=== PATIENT | male | born 1945 | race Caucasian/White ===

== ENCOUNTER 2024-08-13 10:22 | Inpatient (IN) ==
--- NOTE | 2024-08-13 10:37 | Emergency Department Note ---
Impression & Plan Hydronephrosis with urinary obstruction due to renal calculus, Flank Pain, SAMI (acute kidney injury), Acute pyelonephritis ED Provider Note NAME: PAPA CARTWRIGHT AGE: 78 SEX: M : 1945 ARRIVES VIA: Ambulance INFORMANT: Patient, EMS ED PROVIDER(S): Jack Martins DO CHIEF COMPLAINT: Flank pain HPI: The patient is a 78-year-old male who has a history of polio who presented to the emergency department with right-sided flank pain. He thinks the symptoms began several weeks ago. He started to think it may be related to a urine infection. He called his family doctor. He was unable to be seen but he had an antibiotic called in. This did not significantly improve his symptoms. He presented to the Emergency Department today because of ongoing symptoms. He denies having any nausea or vomiting. He denies having any chest pain. He does have an ostomy that he has noticed continued output. He does complain of lower extremity swelling which is not new for him. He does have a history of kidney stone as well. ROS: See above HPI for pertinent positives & negatives. A total of 10 systems reviewed and were otherwise negative. PAST MEDICAL HISTORY: See Below PAST SURGICAL HISTORY: See Below FAMILY HISTORY: See Below SOCIAL HISTORY: See Below HOME MEDICATIONS: See Below ALLERGIES: See Below VITALS: See Below PHYSICAL EXAMINATION: GENERAL: Patient is awake alert in no acute distress patient is resting comfortably and showing no signs of anxiety EYES: The conjunctivae are clear. The pupils are round and reactive. EARS, NOSE, MOUTH AND THROAT: The nose is without any evidence of any deformity. Mucous membranes are moist. Tongue is midline. NECK: The neck is nontender and supple. RESPIRATORY: Normal respiratory effort is noted there is no evidence of wheezing rhonchi or rales CARDIOVASCULAR: Regular rate and rhythm noted there no murmurs rubs or gallops normal S1 normal S2. GASTROINTESTINAL: The abdomen was distended. There is no tenderness guarding or rigidity. Ostomy was noted in the left lower quadrant. BACK: No CVA tenderness was noted to percussion. MUSCULOSKELETAL/EXTREMITIES: There is no evidence of gross deformity full range of motion is noted in the hips and shoulders. SKIN: There is no obvious evidence of any rash. Pedal edema was noted bilaterally. Skin was warm and dry. NEUROLOGIC: Patient is awake alert and oriented x3 MEDICAL DECISION MAKING: The patient is a 78-year-old male who presented to the emergency department for an evaluation of right flank pain. The patient was initially thought to have a urinary tract infection. He was treated with Cipro by his outpatient provider. The patient presents today with ongoing symptoms. The patient's history and physical exam was consistent with the possibility of urinary tract infection but also a kidney stone. For this reason further laboratory and radiographic studies were obtained. The patient was found have an elevated white blood cell count. I am concerned this could represent an underlying infection with the obstructing kidney stone. He was treated with IV antibiotics and IV fluids. I discussed the patient's laboratory and radiographic studies with him and his family. I discussed this case with the on-call urology group as well as the on- call [facility] hospitalist group. They have agreed to evaluate the patient in the emergency department for further management and disposition. Triage Nursing notes reviewed. Prior medical records reviewed Vital Signs: reviewed and remarkable for no significant abnormalities Differential diagnosis: Renal colic, UTI, appendicitis, diverticulitis, mesenteric ischemia, aortic pathology, infections, inflammatory bowel disease, PUD, biliary pathology, as well as other pathologies. ER treatment provided: See below Diagnostics interpreted by me: ECG: EKG was obtained in the emergency department. My interpretation is normal sinus rhythm at 68 bpm. There is no ectopy. There is no acute ST segment abnormalities noted. This was compared to a tracing from March 27, 2013. No changes were noted. Cardiac Monitoring: An order was placed for continuous cardiac monitoring. The monitor shows a rate of 64 bpm with sinus rhythm. Laboratory studies: As stated above and show below. Imaging studies: See below. Radiographic imaging was reviewed by myself Consultation(s): I discussed this case with Dr. Cm who is on-call for the urology group. I discussed this case with the on-call [facility] hospitalist group. They have agreed to evaluate the patient Past Med/Surg History Problem List (Updated 08/13/24 @ 14:50 by Jack Martins DO) Acute pyelonephritis (Acute) SAMI (acute kidney injury) (Acute) Flank Pain (Acute) Hydronephrosis with urinary obstruction due to renal calculus (Acute) Late effects of poliomyelitis (Chronic Unknown) Medical History Concern about drug reaction without diagnosis Patient concerned with anesthesia regarding upcoming cataracts surgery specifically in regards to hx REGLA. States he spoke with Dr. Hadley regarding possibility of no/little anesthesia perioperatively depending patient patient's confort level. Will discuss further DOS. On home oxygen therapy "a little less than 3L continously" Cataract Wheelchair dependence need for mechanical lift-always Polio hx-affected pt neurologically, sometimes affects his breathing while sleeping Scoliosis "has trouble laying flat due to this" Sleep apnea BIPAP HTN (hypertension) Colostomy in place Surgical History Hx of left cataract extraction History of surgery on lower extremity as a child Hx of foot surgery multiple as child Hx of spinal fusion as a child Status post colostomy History of intestinal surgery due to constricted intestine Hx of colonoscopy Social History Smoking Status: Former smoker Second Hand Exposure: Yes (hx as child); Do You Dip or Chew Tobacco: No; Hx Alcohol Use: No Hx Substance Use: Yes Last Used Substance Other:: remote hx Preferred Language: German Communication Ability: Effective Report Writer Required: No Beliefs That Will Affect Care: None Current Living Situation: Spouse Feels Safe at Home: Yes Assistive Devices: BiPap, Mechanical Lift and Oxygen - Continuous Allergies Allergies Allergy/AdvReac Type Severity Reaction Status Date / Time No Known Allergies Allergy Verified 08/13/24 13:08 Home Meds Home Medications Medication Instructions Recorded Confirmed atenolol 25 mg tablet 25 mg PO HS 07/05/19 08/13/24 lisinopril 20 mg tablet 20 mg PO HS 07/05/19 08/13/24 cholecalciferol (vitamin D3) 25 25 mcg PO DAILY 08/13/24 08/13/24 mcg (1,000 unit) tablet (Vitamin D3) Results & Data (ED) Vital Signs Vital Signs - 24 hr 08/13/24 10:35 08/13/24 10:38 08/13/24 10:39 Temperature 37 C Temperature Source Oral Pulse Rate 73 69 Pulse Rate from SpO2 Sensor 68 Respiratory Rate 15 17 Respiratory Effort / Characteristics Non-Labored Spontaneous Respiratory Depth Normal Blood Pressure 159/88 H Blood Pressure [Left Arm] Blood Pressure Mean 111 Blood Pressure Mean [Left Arm] Pulse Oximetry 98 99 Oxygen Delivery Method Nasal Cannula Nasal Cannula Oxygen Flow Rate 3 Sepsis Recent Fever Within 48 Hours No Sepsis New/Unexplained Change in Mental Status N/A Sepsis Action Taken by Nursing No Action Required 08/13/24 10:51 08/13/24 11:03 08/13/24 11:15 Temperature Temperature Source Pulse Rate 69 73 74 Pulse Rate from SpO2 Sensor 75 75 Respiratory Rate 24 22 19 Respiratory Effort / Characteristics Respiratory Depth Blood Pressure Blood Pressure [Left Arm] Blood Pressure Mean Blood Pressure Mean [Left Arm] Pulse Oximetry 98 99 Oxygen Delivery Method Oxygen Flow Rate Sepsis Recent Fever Within 48 Hours Sepsis New/Unexplained Change in Mental Status Sepsis Action Taken by Nursing 08/13/24 11:21 08/13/24 11:39 08/13/24 11:54 Temperature Temperature Source Pulse Rate 74 96 H 96 H Pulse Rate from SpO2 Sensor 75 95 H 97 H Respiratory Rate 22 23 Respiratory Effort / Characteristics Respiratory Depth Blood Pressure Blood Pressure [Left Arm] Blood Pressure Mean Blood Pressure Mean [Left Arm] Pulse Oximetry 99 92 90 Oxygen Delivery Method Oxygen Flow Rate Sepsis Recent Fever Within 48 Hours Sepsis New/Unexplained Change in Mental Status Sepsis Action Taken by Nursing 08/13/24 12:06 08/13/24 12:09 08/13/24 12:12 Temperature Temperature Source Pulse Rate 99 H 97 H Pulse Rate from SpO2 Sensor 99 H Respiratory Rate Respiratory Effort / Characteristics Respiratory Depth Blood Pressure Blood Pressure [Left Arm] 164/92 H Blood Pressure Mean Blood Pressure Mean [Left Arm] 116 Pulse Oximetry 95 Oxygen Delivery Method Oxygen Flow Rate Sepsis Recent Fever Within 48 Hours Sepsis New/Unexplained Change in Mental Status Sepsis Action Taken by Nursing 08/13/24 12:12 08/13/24 12:21 08/13/24 12:45 Temperature Temperature Source Pulse Rate 97 H 98 H 86 Pulse Rate from SpO2 Sensor 98 H 99 H 87 Respiratory Rate 17 Respiratory Effort / Characteristics Respiratory Depth Blood Pressure Blood Pressure [Left Arm] Blood Pressure Mean Blood Pressure Mean [Left Arm] Pulse Oximetry 97 97 98 Oxygen Delivery Method Oxygen Flow Rate Sepsis Recent Fever Within 48 Hours Sepsis New/Unexplained Change in Mental Status Sepsis Action Taken by Nursing 08/13/24 12:48 08/13/24 13:00 08/13/24 13:06 Temperature Temperature Source Pulse Rate 94 H 75 Pulse Rate from SpO2 Sensor 94 H 76 Respiratory Rate 17 21 Respiratory Effort / Characteristics Respiratory Depth Blood Pressure 132/86 Blood Pressure [Left Arm] Blood Pressure Mean 102 Blood Pressure Mean [Left Arm] Pulse Oximetry 97 99 Oxygen Delivery Method Oxygen Flow Rate Sepsis Recent Fever Within 48 Hours Sepsis New/Unexplained Change in Mental Status Sepsis Action Taken by Nursing 08/13/24 13:12 08/13/24 13:42 08/13/24 14:00 Temperature Temperature Source Pulse Rate 71 66 Pulse Rate from SpO2 Sensor 70 64 Respiratory Rate 21 Respiratory Effort / Characteristics Respiratory Depth Blood Pressure Blood Pressure [Left Arm] Blood Pressure Mean Blood Pressure Mean [Left Arm] Pulse Oximetry 98 93 Oxygen Delivery Method Room Air Oxygen Flow Rate Sepsis Recent Fever Within 48 Hours Sepsis New/Unexplained Change in Mental Status Sepsis Action Taken by Nursing 08/13/24 14:00 08/13/24 14:06 Temperature Temperature Source Pulse Rate 64 Pulse Rate from SpO2 Sensor 64 Respiratory Rate 16 Respiratory Effort / Characteristics Respiratory Depth Blood Pressure 131/83 Blood Pressure [Left Arm] Blood Pressure Mean 97 Blood Pressure Mean [Left Arm] Pulse Oximetry 100 Oxygen Delivery Method Oxygen Flow Rate Sepsis Recent Fever Within 48 Hours Sepsis New/Unexplained Change in Mental Status Sepsis Action Taken by [facility] Medications Current Medication List: was personally reviewed by me Laboratory Data Attestation: I reviewed the patient's lab results. 08/13/24 10:45 08/13/24 10:45 Lab Results 08/13/24 08/13/24 08/13/24 Range/Units 10:45 10:50 11:57 WBC 14.87 H (4.8-10.8) K/ul RBC 4.11 L (4.70-6.10) M/uL Hgb 11.9 L (14.0-18.0) g/dl POC Hgb 13.3 L (14.0-18.0) g/dl Hct 39.4 L (42.0-52.0) % POC Hct 39 L (42-52) % MCV 95.9 (80.0-100.0) fL MCH 29.0 (25.0-34.0) pg MCHC 30.2 L (32.0-36.0) g/dL RDW Std Deviation 49.4 H (36.4-46.3) fL RDW Coeff of Marisa 13.9 (11.5-14.5) % Plt Count 278 (130-400) K/uL MPV 9.5 (9.4-12.4) fL Immature Gran % (Auto) 1.3 % Neut % (Auto) 86.3 % Lymph % (Auto) 5.9 % Jack % (Auto) 5.7 % Eos % (Auto) 0.5 % Baso % (Auto) 0.3 % Neut # (Auto) 12.82 H (1.40-6.50) K/uL Lymph # (Auto) 0.88 L (1.20-3.40) K/uL Jack # (Auto) 0.85 H (0.11-0.59) K/uL Eos # (Auto) 0.08 (0.00-0.50) K/uL Baso # (Auto) 0.04 (0.00-0.20) K/uL Immature Gran # (Auto) 0.20 (0.01-0.20) K/uL POC Sodium 142 (135-144) mmol/L Sodium 145 (136-145) mmol/L POC Potassium 4.0 (3.3-5.0) mmol/L Potassium 4.1 (3.5-5.1) mmol/L POC Chloride 97 L (101-112) mmol/L Chloride 100 (98-107) mmol/L Carbon Dioxide 42 H* (21-32) mmol/L POC Total CO2 38 H (24-31) mmol/L Anion Gap 3 (3-11) POC Anion Gap 12.0 L (16-25) mmol/L POC BUN 24 H (7-18) mg/dl BUN 25 H (6-23) mg/dl Creatinine 0.57 L (0.6-1.4) mg/dl POC Creatinine 0.7 (0.6-1.3) mg/dl Est Cr Clr Drug Dosing 98.7 ml/min eGFR 100.98 BUN/Creatinine Ratio 43.9 H (10-20) Glucose 116 H (70-99(Fasting)) mg/dl POC Glucose (other) 117 H (70-99) mg/dl Calcium 9.6 (8.6-10.3) mg/dl POC Ioniz Calcium Sandra 1.18 (1.12-1.32) mmol/l Total Bilirubin 0.5 (0.2-1.0) mg/dl AST 14 (13-39) U/L ALT 10 (7-52) U/L Alkaline Phosphatase 51 (34-104) U/L Troponin I High Sens 7.1 (0-20) pg/ml Total Protein 6.5 (6.0-8.3) gm/dl Albumin 3.5 (3.4-5.0) gm/dl Globulin 3.0 (2.5-4.0) gm/dl Albumin/Globulin Ratio 1.2 (0.9-2) Lipase 18 (11-82) U/L Urine Color [place] Urine Appearance Clear (Clear) Urine pH 7.5 (4.5-7.5) Ur Specific [place] 1.030 (1.000-1.030) Urine Protein 1+ H (Negative) Urine Glucose (UA) Negative (Negative) Urine Ketones Negative (Negative) Urine Blood 3+ H (Negative) Urine Nitrite Negative (Negative) Urine Bilirubin Negative (Negative) Urine Urobilinogen Negative (Negative) Ur Leukocyte Esterase Trace H (Negative) Urine WBC (Auto) 11-20 H (0-5) /hpf Urine RBC (Auto) >20 H (0-2) /hpf U Hyaline Cast (Auto) 0-2 (0-2) /lpf U Epithel Cells (Auto) 0-2 (0-2) /hpf Urine Bacteria (Auto) None Seen (None Seen) Administered Medications Discontinued Medications Sodium Chloride (Nss) 500 mls @ 999 mls/hr IV .Q31M ONE Stop: 08/13/24 10:59 Last Infusion: 08/13/24 11:29 Dose: Infused Documented By: Admin: 08/13/24 10:39 Dose: 999 mls/hr Documented By: HECTOR Piperacillin Sod/Tazobactam Sod (Zosyn) 4.5 gm in 100 mls @ 200 mls/hr IV NOW ONE; Protocol Stop: 08/13/24 12:12 Last Infusion: 08/13/24 12:59 Dose: Infused Documented By: Admin: 08/13/24 11:52 Dose: 200 mls/hr Documented By: HECTOR Ioversol (Optiray 320 100ml) 94 ml IV ONCE ONE Stop: 08/13/24 11:32 Last Admin: 08/13/24 11:31 Dose: 94 ml Documented By: DINO Imaging Data Attestation: I personally reviewed and interpreted this imaging study as follows: My Impression: CT of the abdomen and pelvis was obtained in the emergency department. My interpretation is no free air, significant hydronephrosis was noted on the right with a proximal right ureteral calculus. There is also stranding about the right kidney. Final report below. Radiologist's Impression: Abdomen/Pelvis CT 08/13/24 10:[address] WITH IV CONTRAST CT DOSE: 1254.1 mGy.cm HISTORY: Acute right-sided flank pain . History of left-sided colostomy with parastomal hernia right flank pain TECHNIQUE: Multiaxial CT images of the abdomen and pelvis were performed following the IV administration of 94 cc of Optiray, A dose lowering technique was utilized adhering to the principles of ALARA. COMPARISON STUDY: 07/05/2019 FINDINGS: Limited exam secondary to patient positioning and chronic musculoskeletal deformities. Cardiomegaly with coronary artery calcifications. Trace pleural effusions with dependent bibasilar opacities favoring atelectasis. No pneumoperitoneum identified. Unremarkable spleen, pancreas and right adrenal gland. There are 2 left adrenal gland lesions which appear stable from prior and appear to represent adenomata. Stone filled gallbladder with gallbladder wall thickening and mild pericholecystic stranding, similar to prior. Gallstones extend into the gallbladder neck. No biliary ductal dilation or choledocholithiasis identified. Patent portal vein. Lesions of the kidneys includes cysts and subcentimeter hypodensities which are too small to characterize. 4 mm nonobstructing calculus of the inferior pole left kidney. Moderate right-sided hydroureteronephrosis with delayed nephrogram. There are a few nonobstructing calculi in the right kidney measuring up to 5 mm. Moderate perinephric and periureteral inflammatory stranding/trace fluid. There is a 9 x 7 x 10 mm proximal right ureteral calculus on image 142 with an adjacent more distal 5 mm ureteral calculus on image 148. There is an apparent 1.5 cm enhancing nodular focus abutting the inferior pole right kidney image 125 series 3. Moderate urothelial thickening of the right renal collecting system and ureter. Partially decompressed bladder with wall thickening and small diverticulum. Prostatomegaly. Atherosclerosis of the aorta without aneurysm. No bowel obstruction or bowel wall thickening. Colonic diverticulosis. Fat and bowel-containing abdominal wall hernias are redemonstrated. Thinning of the anterior abdominal wall musculature. Diffuse most likely suggestive of nonweightbearing status. No acute fracture identified. IMPRESSION: 1. Moderate right-sided hydroureteronephrosis with delayed nephrogram secondary to two proximal to mid right ureteral calculi measuring up to 10 mm. 2. Associated urothelial thickening of the right renal collecting system and ureter is likely reactive. Correlate with urinalysis to exclude superimposed infection. 3. Nonobstructing bilateral nephrolithiasis. 4. There is an apparent indeterminate 1.5 cm lesion of the inferior pole right kidney. Correlation with follow-up renal ultrasound recommended. 5. Additional findings as above. ACT 112: Negative or not required by law. The above report was generated using voice recognition software. It may contain grammatical, syntax or spelling errors. Electronically signed by: Jossue Christensen M.D. 08/13/2024 12:10 PM Chest X-Ray 08/13/24 10:29 XR chest 1V portable CLINICAL HISTORY: Back pain. COMPARISON STUDY: Chest radiograph March 29, 2023. FINDINGS: There is severe thoracic spine scoliosis and chronic rib deformities. This results in suboptimal evaluation of the chest. There is no pneumothorax or definite pleural effusion. Enlargement of the cardiac silhouette is unchanged. Mediastinal contours are stable. Hazy bilateral peripheral and bibasilar opacities are present. These are similar to prior exam. IMPRESSION: 1. Suboptimal evaluation of the chest due to severe scoliosis and rib deformities. 2. Hazy bilateral perihilar and bibasilar which favor artifact or atelectasis. An infectious process is within the differential. ACT 112: Negative or not required by law. Electronically signed by: Tucker Aguilar M.D. 08/13/2024 11:02 AM Discharge Plan Visit Data Chief Complaint: Flank Pain Stated Complaint: FLANK PAIN ED Provider: Jack Martins Discharge Problem: Hydronephrosis with urinary obstruction due to renal calculus, Flank Pain, SAMI (acute kidney injury), Acute pyelonephritis Patient Disposition: Being Evaluated by Hospitalist Forms Stand Alone Forms: My [facility] [place] Fengxiafei Prescriptions Prescriptions: No Action lisinopril 20 mg tablet 20 mg PO HS atenolol 25 mg tablet 25 mg PO HS cholecalciferol (vitamin D3) [Vitamin D3] 25 mcg (1,000 unit) Tablet 25 mcg PO DAILY Referrals Referrals: PCP,NO [Physician] -
[2024-08-13] MEDS: SODIUM CHLORIDE 0.9% 500 ML IV ONE (10:39)
[2024-08-13 11:02] LABS: iSTAT Creatinine 0.7 mg/dl (0.6-1.3); iSTAT Hemoglobin 13.3 g/dl (14.0-18.0); iSTAT Ionized Calcium 1.18 mmol/l (1.12-1.32)
[2024-08-13 11:03] LABS: Basophils # (auto) 0.04 K/uL (0.00-0.20); Basophils % (auto) 0.3 %; Eosinophils # (auto) 0.08 K/uL (0.00-0.50); Eosinophils % (auto) 0.5 %; Hematocrit (blood only) 39.4 % (42.0-52.0); Hemoglobin 11.9 g/dl (14.0-18.0); Immature Granulocytes % (auto) 1.3 %; Lymphocytes # (auto) 0.88 K/uL (1.20-3.40); Lymphocytes % (auto) 5.9 %; Mean Corpuscular Hgb Conc 30.2 g/dL (32.0-36.0); Mean Corpuscular Volume 95.9 fL (80.0-100.0); Mean Platelet Volume 9.5 fL (9.4-12.4); Monocytes # (auto) 0.85 K/uL (0.11-0.59); Monocytes % (auto) 5.7 %; Neutrophils # (auto) 12.82 K/uL (1.40-6.50); Neutrophils % (auto) 86.3 %; Platelet Count 278 K/uL (130-400); RDW Coefficient of Variation 13.9 % (11.5-14.5); RDW Standard Deviation 49.4 fL (36.4-46.3); Red Blood Count 4.11 M/uL (4.70-6.10); White Blood Count 14.87 K/ul (4.8-10.8)
--- NOTE | 2024-08-13 11:03 | XRay Report ---
XR chest 1V portable CLINICAL HISTORY: Back pain. COMPARISON STUDY: Chest radiograph March 29, 2023. FINDINGS: There is severe thoracic spine scoliosis and chronic rib deformities. This results in subop timal evaluation of the chest. There is no pneumothorax or definite pleural effusion. Enlargement of the cardiac silhouette is unchanged. Mediastinal contours are stable. Hazy bilateral peripheral and b ibasilar opacities are present. These are similar to prior exam. IMPRESSION: 1. Suboptimal evaluation of the chest due to severe scoliosis and rib deformities. 2. Hazy bilateral perihilar and bibasilar which favor artifact or atelectasis. An infectious process is within the differential. ACT 112: Negative or not required by law. Electronically signed by: Tucker Agiular M.D. 08/13/2024 11:02 AM
[2024-08-13] MEDS: OPTIRAY 320 100ml IV ONE (11:31)
[2024-08-13 11:32] LABS: Albumin Globulin Ratio 1.2 (0.9-2); Albumin Level 3.5 gm/dl (3.4-5.0); BUN Creatinine Ratio 43.9 (10-20); Bilirubin,Total 0.5 mg/dl (0.2-1.0); Calcium 9.6 mg/dl (8.6-10.3); Creatinine Clr Calc Pharmacy 98.7 ml/min; Potassium 4.1 mmol/L (3.5-5.1); Total Protein 6.5 gm/dl (6.0-8.3); Troponin I High Sensitivity 7.1 pg/ml (0-20)
[2024-08-13] MEDS: PIPERACILLIN/TAZOBACTAM 4.5 GM/100 ML BAG IV ONE (11:52)
--- NOTE | 2024-08-13 12:11 | CT Scan Report ---
ABDOMEN AND PELVIS CT WITH IV CONTRAST CT DOSE: 1254.1 mGy.cm HISTORY: Acute right-sided flank pain . History of left-sided colostomy with parastomal hernia right flank pain TECHNIQUE: Multiaxial CT images of the abdomen and pelvis were performed following the IV administrat ion of 94 cc of Optiray, A dose lowering technique was utilized adhering to the principles of ALARA. COMPARISON STUDY: 07/05/2019 FINDINGS: Limited exam secondary to patient positioning and chronic musculoskeletal deformities. Card iomegaly with coronary artery calcifications. Trace pleural effusions with dependent bibasilar opacit ies favoring atelectasis. No pneumoperitoneum identified. Unremarkable spleen, pancreas and right adrenal gland. There are 2 left adrenal gland lesions which a ppear stable from prior and appear to represent adenomata. Stone filled gallbladder with gallbladder wall thickening and mild pericholecystic stranding, similar to prior. Gallstones extend into the gall bladder neck. No biliary ductal dilation or choledocholithiasis identified. Patent portal vein. Lesions of the kidneys includes cysts and subcentimeter hypodensities which are too small to characte rize. 4 mm nonobstructing calculus of the inferior pole left kidney. Moderate right-sided hydroureter onephrosis with delayed nephrogram. There are a few nonobstructing calculi in the right kidney measur ing up to 5 mm. Moderate perinephric and periureteral inflammatory stranding/trace fluid. There is a 9 x 7 x 10 mm proximal right ureteral calculus on image 142 with an adjacent more distal 5 mm uretera l calculus on image 148. There is an apparent 1.5 cm enhancing nodular focus abutting the inferior po le right kidney image 125 series 3. Moderate urothelial thickening of the right renal collecting syst em and ureter. Partially decompressed bladder with wall thickening and small diverticulum. Prostatome duc. Atherosclerosis of the aorta without aneurysm. No bowel obstruction or bowel wall thickening. Colonic diverticulosis. Fat and bowel-containing abdom inal wall hernias are redemonstrated. Thinning of the anterior abdominal wall musculature. Diffuse mo st likely suggestive of nonweightbearing status. No acute fracture identified. IMPRESSION: 1. Moderate right-sided hydroureteronephrosis with delayed nephrogram secondary to two proximal to mi d right ureteral calculi measuring up to 10 mm. 2. Associated urothelial thickening of the right renal collecting system and ureter is likely reactiv e. Correlate with urinalysis to exclude superimposed infection. 3. Nonobstructing bilateral nephrolithiasis. 4. There is an apparent indeterminate 1.5 cm lesion of the inferior pole right kidney. Correlation follow-up renal ultrasound recommended. 5. Additional findings as above. ACT 112: Negative or not required by law. The above report was generated using voice recognition software. It may contain grammatical, syntax o r spelling errors. Electronically signed by: Jossue Christensen M.D. 08/13/2024 12:10 PM
[2024-08-13 13:00] LABS: Appearance Urine Clear (Clear); Bacteria Urine Automated None Seen (None Seen); Bilirubin Urine Negative (Negative); Blood Urine 3+ (Negative); Cast Urine Automated 0-2 /lpf (0-2); Color Urine Orange; Epithelial Cell Urine Auto 0-2 /hpf (0-2); Glucose Urine UA Negative (Negative); Ketones Urine Negative (Negative); Leukocyte Esterase Urine Trace (Negative); Nitrite Urine Negative (Negative); Protein Urine 1+ (Negative); RBC Urine Automated >20 /hpf (0-2); Urobilinogen Urine Negative (Negative); pH Urine 7.5 (4.5-7.5)
--- NOTE | 2024-08-13 15:17 | Communication Note ---
Date of Service: August 13, 2024 78-year-old male with PMH of paraplegia, postpolio syndrome, HTN, chronic hypoxemic respiratory failure, central sleep apnea on BPAP, restrictive lung d isease, oxygen dependent, colostomy status, wheelchair-bound presented to the ED with complaint of right flank pain for about 3 weeks time, he completed ciprofloxacin 10-day course with no improvement, his last dose was last Sunday [about a week ago [employer] DIES]. He felt warm and states that maybe he had low-grade fever at home. He denies sore throat/cough/chest pain. Denies smoking. He is wheelchair-bound. Admitting labs and imagings reviewed: WBC elevated at 14.8 7K, urinalysis not conclusive. Admitting CT AP: Moderate right-sided hydroureteronephrosis, 2 proximal to mid right ureteral calculi measuring up to 10 mm. Associated urothelial thickening of the right renal collecting system. Indeterminate 1.5 cm lesion of the inferior pole right kidney. CXR with likely atelectasis finding in the setting of no respiratory complaints from the patient. Right hydroureteronephrosis, right ureteral calculi In the setting of possible UTI: UA inconclusive, await urine culture. WBC elevated. Continue with Zosyn, add probiotic. c/w ivf. Urology consult. Possible intervention today. Resume diet after the procedure. On exam: GENERAL: Alert and oriented x3. NAD, on BPAP. Appears weak/frail. HEENT: No pallor, no icterus. Pupils equal, round and reactive to light. Oral mucosa dry. NECK: No JVD, no neck masses. HEART: S1 and S2 heard. Regular rate and rhythm. No murmur, no gallop. RESPIRATORY SYSTEM: Normal AP diameter. No accessory muscle use. No wheezing, no crackles. ABDOMEN: Soft, bowel sounds present, nontender, no distention. CENTRAL NERVOUS SYSTEM: No facial droop. Speech is clear. Obeys simple commands. Moves extremities. EXTREMITIES: Paresis LE, no edema/no erythema. I have seen and examined the patient and have discussed the case with the provider above. I agree with the assessment and plan as stated. Time spent: 35 min.
[2024-08-13] MEDS: LACTATED RINGER'S 1,000 ML IV SCH (16:06)
--- NOTE | 2024-08-13 16:38 | History & Physical Report ---
Date of Service August 13, 2024 Assessment & Plan (1) Acute pyelonephritis: (2) SAMI (acute kidney injury): (3) Hydronephrosis with urinary obstruction due to renal calculus: (4) Wheelchair dependence: (5) Polio: (6) Scoliosis: (7) HTN (hypertension): (8) Colostomy in place: Plan Assessment and plan: Moderate R hydroureteronephrosis Right 10 mm ureteral calculi: Completed 10 days of treatment with p.o. ciprofloxacin, still with flank pain A/P CT showed obstructing calculi and right hydro Urology consulted, plan for cystoscopy with right retrograde pyelogram/stent placement on 08/13 Continue IV Zosyn Hx HTN: Continue atenolol, hold lisinopril for now Chronic hypoxic respiratory failure Central sleep apnea: On baseline 3 L O2 [id number] Continue BiPAP at at bedtime A total of 60 minutes was spent on chart review/reviewing diagnostic data/facilitating plan of care/discussion with consultants Full code DVT prophylaxis: SCDs, hold off on AC until after OR History of Present Illness Chief Complaint: Bilateral flank pain Primary Care Provider: Sin Benoit MD The patient is a 78-year-old male with a past medical history of postpolio syndrome, paraplegia, chronic hypoxic respiratory failureon 3 L chronically, central sleep apneaon BiPAP at bedtime, HTN, vitamin D deficiency who presents to the ED on 08/13/2024 with complaints of right flank pain and low-grade fever intermittently over the past few weeks. Patient reports he saw his PCP who recommended treatment with ciprofloxacin for possible UTI. The patient has medical history of kidney stones in the past. The patient completed the 10 days of ciprofloxacin with no improvement in symptoms. He denies any shortness of breath or chest pain. He denies any nausea/vomiting. On exam, he reports his pain is controlled. Garrison catheter was placed in the ER On arrival to the ED, labs remarkable for WBC 14, hemoglobin 11.9, chloride 97, bicarb 42, anion gap 12 Chest x-ray showed atelectasis A/P CT showed: 1. Moderate right-sided hydroureteronephrosis with delayed nephrogram secondary to two proximal to mid right ureteral calculi measuring up to 10 mm. 2. Associated urothelial thickening of the right renal collecting system and ureter is likely reactive. Correlate with urinalysis to exclude superimposed infection. 3. Nonobstructing bilateral nephrolithiasis. 4. There is an apparent indeterminate 1.5 cm lesion of the inferior pole right kidney. Correlation with follow-up renal ultrasound recommended. The patient will be admitted for further management of hydroureter/kidney stone Allergies Allergy/AdvReac Type Severity Reaction Status Date / Time No Known Allergies Allergy Verified 08/13/24 13:08 Home Medications Medication Instructions Recorded Confirmed Type atenolol 25 mg tablet 25 mg PO HS 07/05/19 08/13/24 History lisinopril 20 mg tablet 20 mg PO HS 07/05/19 08/13/24 History cholecalciferol (vitamin D3) 25 25 mcg PO DAILY 08/13/24 08/13/24 History mcg (1,000 unit) tablet (Vitamin D3) Past Med/Surg History Problem List (Updated 08/13/24 @ 14:50 by Jack Martins DO) Acute pyelonephritis (Acute) SAMI (acute kidney injury) (Acute) Flank Pain (Acute) Hydronephrosis with urinary obstruction due to renal calculus (Acute) Late effects of poliomyelitis (Chronic Unknown) Medical History Concern about drug reaction without diagnosis Patient concerned with anesthesia regarding upcoming cataracts surgery specifically in regards to hx REGLA. States he spoke with Dr. Hadley regarding possibility of no/little anesthesia perioperatively depending patient patient's confort level. Will discuss further DOS. On home oxygen therapy "a little less than 3L continously" Cataract Wheelchair dependence need for mechanical lift-always Polio hx-affected pt neurologically, sometimes affects his breathing while sleeping Scoliosis "has trouble laying flat due to this" Sleep apnea BIPAP HTN (hypertension) Colostomy in place Surgical History Hx of left cataract extraction History of surgery on lower extremity as a child Hx of foot surgery multiple as child Hx of spinal fusion as a child Status post colostomy History of intestinal surgery due to constricted intestine Hx of colonoscopy Social History Smoking Status: Former smoker Second Hand Exposure: Yes (hx as child); Do You Dip or Chew Tobacco: No; Hx Alcohol Use: No Hx Substance Use: Yes Last Used Substance Other:: remote hx Preferred Language: Bulgarian Communication Ability: Effective Taxicab Starter Required: No Beliefs That Will Affect Care: None Current Living Situation: Spouse Feels Safe at Home: Yes Assistive Devices: BiPap, Mechanical Lift and Oxygen - Continuous Review of Systems Review of Systems: All systems reviewed & are unremarkable except as noted in HPI & below Physical Exam Constitutional: WD/WN, vitals as above + not well developed (Paraplegia, scoliosis, deformities postpolio) Eyes: PERRL, conjunctivae normal, anicteric sclerae ENMT: external ear and nose normal, oropharynx normal Neck: trachea midline, no thyromegaly Respiratory: normal respiratory effort, lungs clear to auscultation (Oxygen dependent, BiPAP dependent at bedtime) Cardiovascular: RRR, no murmur, no edema Gastrointestinal (Abdomen): normal bowel sounds, soft, nontender, no hepatosplenomegaly Musculoskeletal: no cyanosis or clubbing, extremities motor strength 5/5 Skin: no rashes, warm and dry Neurologic: PERRL, EOMI, accommodation nl, no face palsy, no dysarthria Psychiatric: A+Ox3, euthymic affect Lymphatic: no cervical or axillary lymphadenopathy Results & Data Results & Data Vital Signs (Past 12 Hours) Vital Signs Temp Pulse Resp BP BP Pulse Ox O2 Del Method 08/13/24 16:11 66 08/13/24 15:00 58 L 20 98 08/13/24 15:00 145/85 H 08/13/24 15:00 145/85 H 08/13/24 15:00 145/85 H 08/13/24 15:00 145/85 H 08/13/24 14:57 63 20 08/13/24 14:33 61 14 99 08/13/24 14:21 64 100 08/13/24 14:12 61 16 100 08/13/24 14:06 64 16 100 08/13/24 14:00 131/83 08/13/24 14:00 Room Air 08/13/24 13:42 66 21 93 08/13/24 13:12 71 98 08/13/24 13:06 75 21 99 08/13/24 13:00 132/86 08/13/24 12:48 94 H 17 97 08/13/24 12:45 86 98 08/13/24 12:21 98 H 97 08/13/24 12:12 97 H 17 97 08/13/24 12:12 97 H 08/13/24 12:09 164/92 H 08/13/24 12:06 99 H 95 08/13/24 11:54 96 H 23 90 08/13/24 11:39 96 H 92 08/13/24 11:21 74 22 99 08/13/24 11:15 74 19 99 08/13/24 11:03 73 22 98 08/13/24 10:51 69 24 08/13/24 10:39 69 17 99 08/13/24 10:38 Nasal Cannula 08/13/24 10:35 37 C 73 15 159/88 H 98 Nasal Cannula O2 Flow Rate 08/13/24 16:11 08/13/24 15:00 08/13/24 15:00 08/13/24 15:00 08/13/24 15:00 08/13/24 15:00 08/13/24 14:57 08/13/24 14:33 08/13/24 14:21 08/13/24 14:12 08/13/24 14:06 08/13/24 14:00 08/13/24 14:00 08/13/24 13:42 08/13/24 13:12 08/13/24 13:06 08/13/24 13:00 08/13/24 12:48 08/13/24 12:45 08/13/24 12:21 08/13/24 12:12 08/13/24 12:12 08/13/24 12:09 08/13/24 12:06 08/13/24 11:54 08/13/24 11:39 08/13/24 11:21 08/13/24 11:15 08/13/24 11:03 08/13/24 10:51 08/13/24 10:39 08/13/24 10:38 08/13/24 10:35 3 Diagnostic Findings Laboratory Results WBC 14.87 K/ul (4.8-10.8) H 08/13/24 10:45 RBC 4.11 M/uL (4.70-6.10) L 08/13/24 10:45 Hgb 11.9 g/dl (14.0-18.0) L 08/13/24 10:45 POC Hgb 13.3 g/dl (14.0-18.0) L 08/13/24 10:50 Hct 39.4 % (42.0-52.0) L 08/13/24 10:45 POC Hct 39 % (42-52) L 08/13/24 10:50 MCV 95.9 fL (80.0-100.0) 08/13/24 10:45 MCH 29.0 pg (25.0-34.0) 08/13/24 10:45 MCHC 30.2 g/dL (32.0-36.0) L 08/13/24 10:45 RDW Std Deviation 49.4 fL (36.4-46.3) H 08/13/24 10:45 RDW Coeff of Marisa 13.9 % (11.5-14.5) 08/13/24 10:45 Plt Count 278 K/uL (130-400) 08/13/24 10:45 MPV 9.5 fL (9.4-12.4) 08/13/24 10:45 Immature Gran % (Auto) 1.3 % 08/13/24 10:45 Neut % (Auto) 86.3 % 08/13/24 10:45 Lymph % (Auto) 5.9 % 08/13/24 10:45 Sanders % (Auto) 5.7 % 08/13/24 10:45 Eos % (Auto) 0.5 % 08/13/24 10:45 Baso % (Auto) 0.3 % 08/13/24 10:45 Neut # (Auto) 12.82 K/uL (1.40-6.50) H 08/13/24 10:45 Lymph # (Auto) 0.88 K/uL (1.20-3.40) L 08/13/24 10:45 Sanders # (Auto) 0.85 K/uL (0.11-0.59) H 08/13/24 10:45 Eos # (Auto) 0.08 K/uL (0.00-0.50) 08/13/24 10:45 Baso # (Auto) 0.04 K/uL (0.00-0.20) 08/13/24 10:45 Immature Gran # (Auto) 0.20 K/uL (0.01-0.20) 08/13/24 10:45 POC Sodium 142 mmol/L (135-144) 08/13/24 10:50 Sodium 145 mmol/L (136-145) 08/13/24 10:45 POC Potassium 4.0 mmol/L (3.3-5.0) 08/13/24 10:50 Potassium 4.1 mmol/L (3.5-5.1) 08/13/24 10:45 POC Chloride 97 mmol/L (101-112) L 08/13/24 10:50 Chloride 100 mmol/L (98-107) 08/13/24 10:45 Carbon Dioxide 42 mmol/L (21-32) H* 08/13/24 10:45 POC Total CO2 38 mmol/L (24-31) H 08/13/24 10:50 Anion Gap 3 (3-11) 08/13/24 10:45 POC Anion Gap 12.0 mmol/L (16-25) L 08/13/24 10:50 POC BUN 24 mg/dl (7-18) H 08/13/24 10:50 BUN 25 mg/dl (6-23) H 08/13/24 10:45 Creatinine 0.57 mg/dl (0.6-1.4) L 08/13/24 10:45 POC Creatinine 0.7 mg/dl (0.6-1.3) 08/13/24 10:50 Est Cr Clr Drug Dosing 98.7 ml/min 08/13/24 10:45 eGFR 100.98 08/13/24 10:45 BUN/Creatinine Ratio 43.9 (10-20) H 08/13/24 10:45 Glucose 116 mg/dl (70-99(Fasting)) H 08/13/24 10:45 POC Glucose (other) 117 mg/dl (70-99) H 08/13/24 10:50 Calcium 9.6 mg/dl (8.6-10.3) 08/13/24 10:45 POC Ioniz Calcium Sandra 1.18 mmol/l (1.12-1.32) 08/13/24 10:50 Total Bilirubin 0.5 mg/dl (0.2-1.0) 08/13/24 10:45 AST 14 U/L (13-39) 08/13/24 10:45 ALT 10 U/L (7-52) 08/13/24 10:45 Alkaline Phosphatase 51 U/L (34-104) 08/13/24 10:45 Troponin I High Sens 7.1 pg/ml (0-20) 08/13/24 10:45 Total Protein 6.5 gm/dl (6.0-8.3) 08/13/24 10:45 Albumin 3.5 gm/dl (3.4-5.0) 08/13/24 10:45 Globulin 3.0 gm/dl (2.5-4.0) 08/13/24 10:45 Albumin/Globulin Ratio 1.2 (0.9-2) 08/13/24 10:45 Lipase 18 U/L (11-82) 08/13/24 10:45 Urine Color [place] 08/13/24 11:57 Urine Appearance Clear (Clear) 08/13/24 11:57 Urine pH 7.5 (4.5-7.5) 08/13/24 11:57 Ur Specific [place] 1.030 (1.000-1.030) 08/13/24 11:57 Urine Protein 1+ (Negative) H 08/13/24 11:57 Urine Glucose (UA) Negative (Negative) 08/13/24 11:57 Urine Ketones Negative (Negative) 08/13/24 11:57 Urine Blood 3+ (Negative) H 08/13/24 11:57 Urine Nitrite Negative (Negative) 08/13/24 11:57 Urine Bilirubin Negative (Negative) 08/13/24 11:57 Urine Urobilinogen Negative (Negative) 08/13/24 11:57 Ur Leukocyte Esterase Trace (Negative) H 08/13/24 11:57 Urine WBC (Auto) 11-20 /hpf (0-5) H 08/13/24 11:57 Urine RBC (Auto) >20 /hpf (0-2) H 08/13/24 11:57 U Hyaline Cast (Auto) 0-2 /lpf (0-2) 08/13/24 11:57 U Epithel Cells (Auto) 0-2 /hpf (0-2) 08/13/24 11:57 Urine Bacteria (Auto) None Seen (None Seen) 08/13/24 11:57 Impressions Abdomen/Pelvis CT 08/13/24 10:[address] WITH IV CONTRAST CT DOSE: 1254.1 mGy.cm HISTORY: Acute right-sided flank pain . History of left-sided colostomy with parastomal hernia right flank pain TECHNIQUE: Multiaxial CT images of the abdomen and pelvis were performed following the IV administration of 94 cc of Optiray, A dose lowering technique was utilized adhering to the principles of ALARA. COMPARISON STUDY: 07/05/2019 FINDINGS: Limited exam secondary to patient positioning and chronic musculoskeletal deformities. Cardiomegaly with coronary artery calcifications. Trace pleural effusions with dependent bibasilar opacities favoring atelectasis. No pneumoperitoneum identified. Unremarkable spleen, pancreas and right adrenal gland. There are 2 left adrenal gland lesions which appear stable from prior and appear to represent adenomata. Stone filled gallbladder with gallbladder wall thickening and mild pericholecystic stranding, similar to prior. Gallstones extend into the gallbladder neck. No biliary ductal dilation or choledocholithiasis identified. Patent portal vein. Lesions of the kidneys includes cysts and subcentimeter hypodensities which are too small to characterize. 4 mm nonobstructing calculus of the inferior pole left kidney. Moderate right-sided hydroureteronephrosis with delayed nephrogram. There are a few nonobstructing calculi in the right kidney measuring up to 5 mm. Moderate perinephric and periureteral inflammatory stranding/trace fluid. There is a 9 x 7 x 10 mm proximal right ureteral calculus on image 142 with an adj acent more distal 5 mm ureteral calculus on image 148. There is an apparent 1.5 cm enhancing nodular focus abutting the inferior pole right kidney image 125 series 3. Moderate urothelial thickening of the right renal collecting system and ureter. Partially decompressed bladder with wall thickening and small diverticulum. Prostatomegaly. Atherosclerosis of the aorta without aneurysm. No bowel obstruction or bowel wall thickening. Colonic diverticulosis. Fat and bowel-containing abdominal wall hernias are redemonstrated. Thinning of the anterior abdominal wall musculature. Diffuse most likely suggestive of nonweightbearing status. No acute fracture identified. IMPRESSION: 1. Moderate right-sided hydroureteronephrosis with delayed nephrogram secondary to two proximal to mid right ureteral calculi measuring up to 10 mm. 2. Associated urothelial thickening of the right renal collecting system and ureter is likely reactive. Correlate with urinalysis to exclude superimposed infection. 3. Nonobstructing bilateral nephrolithiasis. 4. There is an apparent indeterminate 1.5 cm lesion of the inferior pole right kidney. Correlation with follow-up renal ultrasound recommended. 5. Additional findings as above. ACT 112: Negative or not required by law. The above report was generated using voice recognition software. It may contain grammatical, syntax or spelling errors. Electronically signed by: Jossue Christensen M.D. 08/13/2024 12:10 PM Chest X-Ray 08/13/24 10:29 XR chest 1V portable CLINICAL HISTORY: Back pain. COMPARISON STUDY: Chest radiograph March 29, 2023. FINDINGS: There is severe thoracic spine scoliosis and chronic rib deformities. This results in suboptimal evaluation of the chest. There is no pneumothorax or definite pleural effusion. Enlargement of the cardiac silhouette is unchanged. Mediastinal contours are stable. Hazy bilateral peripheral and bibasilar opacities are present. These are similar to prior exam. IMPRESSION: 1. Suboptimal evaluation of the chest due to severe scoliosis and rib deformities. 2. Hazy bilateral perihilar and bibasilar which favor artifact or atelectasis. An infectious process is within the differential. ACT 112: Negative or not required by law. Electronically signed by: Tucker Aguilar M.D. 08/13/2024 11:02 AM Supervising Physician Co-Signing Physician Notes See communication note.
--- NOTE | 2024-08-13 16:58 | Anesthesiology Consultation ---
Date of Service August 13, 2024 Assessment & Plan Chart Review Chart Review: Acceptable Risk for Surgery and Patient NOT seen in Pre Admission Testing Consults Requested none History Surgery Operation Date: 08/13/24 11:40 Proposed Procedures p Cystoscopy, Right Retrograde Pyelogram, Right Stent Placement - Aramis Cm MD Height/Weight Height: 5 ft Weight: 85.7 kg Allergies Allergy/AdvReac Type Severity Reaction Status Date / Time No Known Allergies Allergy Verified 08/13/24 13:08 Medications Home Medications Medication Instructions Recorded Confirmed Last Taken atenolol 25 mg tablet 25 mg PO HS 07/05/19 08/13/24 08/12/24 lisinopril 20 mg tablet 20 mg PO HS 07/05/19 08/13/24 08/12/24 cholecalciferol (vitamin D3) 25 25 mcg PO DAILY 08/13/24 08/13/24 08/12/24 mcg (1,000 unit) tablet (Vitamin D3) Active Medications Generic Name Dose Route Start Last Admin Trade Name Freq PRN Reason Stop Dose Admin Lactated Ringer's 1,000 mls @ 80 mls/hr 08/13/24 16:00 08/13/24 16:06 Lr IV 08/14/24 15:59 80 mls/hr .[id number] DEJAN Administration Past Medical History Medical History Concern about drug reaction without diagnosis Patient concerned with anesthesia regarding upcoming cataracts surgery specifically in regards to hx REGLA. States he spoke with Dr. Hadley regarding possibility of no/little anesthesia perioperatively depending patient patient's confort level. Will discuss further DOS. On home oxygen therapy "a little less than 3L continously" Cataract Wheelchair dependence need for mechanical lift-always Polio hx-affected pt neurologically, sometimes affects his breathing while sleeping Scoliosis "has trouble laying flat due to this" Sleep apnea BIPAP HTN (hypertension) Colostomy in place Past Surgical History Surgical History Hx of left cataract extraction History of surgery on lower extremity as a child Hx of foot surgery multiple as child Hx of spinal fusion as a child Status post colostomy History of intestinal surgery due to constricted intestine Hx of colonoscopy Social History Smoking Status: Former smoker Do You Dip or Chew Tobacco: No Hx Alcohol Use: No Hx Substance Use: Yes substance use type: former substance user and marijuana Last Used Substance Other:: remote hx Physical Exam Vital Signs Last Vital Signs Temp 37 C 08/13/24 10:35 Pulse 66 08/13/24 16:11 Resp 20 08/13/24 15:00 BP 145/85 H 08/13/24 15:00 Pulse Ox 98 08/13/24 15:00 O2 Del Method Room Air 08/13/24 14:00 O2 Flow Rate 3 08/13/24 10:35 Testing Laboratory Results 08/13/24 10:45 08/13/24 10:45 Urine Color [place] 08/13/24 11:57 Urine Appearance Clear (Clear) 08/13/24 11:57 Urine pH 7.5 (4.5-7.5) 08/13/24 11:57 Ur Specific [place] 1.030 (1.000-1.030) 08/13/24 11:57 Urine Protein 1+ (Negative) H 08/13/24 11:57 Urine Glucose (UA) Negative (Negative) 08/13/24 11:57 Urine Ketones Negative (Negative) 08/13/24 11:57 Urine Nitrite Negative (Negative) 08/13/24 11:57 Ur Leukocyte Esterase Trace (Negative) H 08/13/24 11:57 Urine WBC (Auto) 11-20 /hpf (0-5) H 08/13/24 11:57 Urine RBC (Auto) >20 /hpf (0-2) H 08/13/24 11:57 U Hyaline Cast (Auto) 0-2 /lpf (0-2) 08/13/24 11:57 U Epithel Cells (Auto) 0-2 /hpf (0-2) 08/13/24 11:57 Urine Bacteria (Auto) None Seen (None Seen) 08/13/24 11:57 08/13/24 10:50 POC Glucose (other) 117 H
[2024-08-13] MEDS ORDERED: fentaNYL citrate PF 100 MCG/2 ML VIAL ONE (17:00)
[2024-08-13] MEDS ORDERED: LIDOCAINE 2% 2 ML VIAL/AMP(20MG/ML) INFIL ONE (17:00)
[2024-08-13] MEDS ORDERED: PROPOFOL IV EMULSION 10 MG/ML 20 ML VIAL IV ONE ×2 (17:00→18:16)
--- NOTE | 2024-08-13 17:03 | Urology Consultation ---
Date of Consultation August 13, 2024 Assessment & Plan (1) Hydronephrosis with urinary obstruction due to renal calculus: Plan 78-year-old male who presented to the hospital with right flank pain and a low- grade fever. CT scan was performed which showed a 2 separate large right proximal ureteral obstructing calculi. Labs showed a leukocytosis of 14.8, creatinine 0.57 and urinalysis that was nonconcerning for infection. Patient was admitted to the hospitalist team. He was given Zosyn. Given the large size of one of his stones, multiple obstructing stones and concern for infection given his leukocytosis and subjective fevers at home, recommend cystoscopy with right retrograde pyelogram right ureteral stent placement Risk and benefits discussed and consent obtained Patient marked. Antibiotics already administered. History of Present Illness History of Present Illness 78-year-old male who presented to the hospital with right flank pain and a low- grade fever. CT scan was performed which showed a 2 separate large right proximal ureteral obstructing calculi. Labs showed a leukocytosis of 14.8, creatinine 0.57 and urinalysis that was nonconcerning for infection. Patient was admitted to the hospitalist team. He was given Zosyn. Allergies Allergy/AdvReac Type Severity Reaction Status Date / Time No Known Allergies Allergy Verified 08/13/24 13:08 Home Medications Medication Instructions Recorded Confirmed Type atenolol 25 mg tablet 25 mg PO HS 07/05/19 08/13/24 History lisinopril 20 mg tablet 20 mg PO HS 07/05/19 08/13/24 History cholecalciferol (vitamin D3) 25 25 mcg PO DAILY 08/13/24 08/13/24 History mcg (1,000 unit) tablet (Vitamin D3) Patient History Medical History Concern about drug reaction without diagnosis Patient concerned with anesthesia regarding upcoming cataracts surgery specifically in regards to hx REGLA. States he spoke with Dr. Hadley regarding possibility of no/little anesthesia perioperatively depending patient patient's confort level. Will discuss further DOS. On home oxygen therapy "a little less than 3L continously" Cataract Wheelchair dependence need for mechanical lift-always Polio hx-affected pt neurologically, sometimes affects his breathing while sleeping Scoliosis "has trouble laying flat due to this" Sleep apnea BIPAP HTN (hypertension) Colostomy in place Surgical History Hx of left cataract extraction History of surgery on lower extremity as a child Hx of foot surgery multiple as child Hx of spinal fusion as a child Status post colostomy History of intestinal surgery due to constricted intestine Hx of colonoscopy Social History Smoking Status: Former smoker Second Hand Exposure: Yes (hx as child); Do You Dip or Chew Tobacco: No; Hx Alcohol Use: No Hx Substance Use: Yes Last Used Substance Other:: remote hx Preferred Language: Frisian Communication Ability: Effective Special Needs Bus Driver Required: No Beliefs That Will Affect Care: None Current Living Situation: Spouse Feels Safe at Home: Yes Assistive Devices: BiPap, Mechanical Lift and Oxygen - Continuous Physical Exam Physical Exam: General: Alert and oriented, no acute distress HEENT: Normocephalic, mucous membranes moist Pulmonary: Nonlabored respirations Abdomen: Nondistended Extremities: Moves all 4 spontaneously Neuro: No gross deficits Skin: Warm, dry, no rashes noted Results & Data Vital Signs (Past 12 Hours) Vital Signs Temp Pulse Pulse Resp BP BP Pulse Ox 08/13/24 16:11 66 08/13/24 16:00 61 20 155/83 H 99 08/13/24 15:00 58 L 20 98 08/13/24 15:00 145/85 H 08/13/24 15:00 145/85 H 08/13/24 15:00 145/85 H 08/13/24 15:00 145/85 H 08/13/24 14:57 63 20 08/13/24 14:33 61 14 99 08/13/24 14:21 64 100 08/13/24 14:12 61 16 100 08/13/24 14:06 64 16 100 08/13/24 14:00 131/83 08/13/24 14:00 08/13/24 13:42 66 21 93 08/13/24 13:12 71 98 08/13/24 13:06 75 21 99 08/13/24 13:00 132/86 08/13/24 12:48 94 H 17 97 08/13/24 12:45 86 98 08/13/24 12:21 98 H 97 08/13/24 12:12 97 H 17 97 08/13/24 12:12 97 H 08/13/24 12:09 164/92 H 08/13/24 12:06 99 H 95 08/13/24 11:54 96 H 23 90 08/13/24 11:39 96 H 92 08/13/24 11:21 74 22 99 08/13/24 11:15 74 19 99 08/13/24 11:03 73 22 98 08/13/24 10:51 69 24 08/13/24 10:39 69 17 99 08/13/24 10:38 08/13/24 10:35 37 C 73 15 159/88 H 98 O2 Del Method O2 Flow Rate 08/13/24 16:11 08/13/24 16:00 CPAP 08/13/24 15:00 08/13/24 15:00 08/13/24 15:00 08/13/24 15:00 08/13/24 15:00 08/13/24 14:57 08/13/24 14:33 08/13/24 14:21 08/13/24 14:12 08/13/24 14:06 08/13/24 14:00 08/13/24 14:00 Room Air 08/13/24 13:42 08/13/24 13:12 08/13/24 13:06 08/13/24 13:00 08/13/24 12:48 08/13/24 12:45 08/13/24 12:21 08/13/24 12:12 08/13/24 12:12 08/13/24 12:09 08/13/24 12:06 08/13/24 11:54 08/13/24 11:39 08/13/24 11:21 08/13/24 11:15 08/13/24 11:03 08/13/24 10:51 08/13/24 10:39 08/13/24 10:38 Nasal Cannula 08/13/24 10:35 Nasal Cannula 3 PG Care Time/CCT Total # of Minutes Spent Total Time Spent with Patient: Total time spent is greater than 50% in coordination of care (as documented) at patient's floor/unit and/or counseling patient: Coding Level of Care Code 47662 INT INP/OBS CARE 2/55MIN Diagnoses Hydronephrosis with urinary obstruction due to renal calculus N13.2
[2024-08-13] MEDS ORDERED: ATROPINE SULFATE 0.1 MG/ML 10ML SYR IV PRN (17:18)
[2024-08-13] MEDS ORDERED: ONDANSETRON INJ 2 MG/ML 2 ML VIAL IV PRN (17:18)
[2024-08-13] MEDS ORDERED: ePHEDrine sulfate 50 MG/ML AMP IV PRN (17:18)
[2024-08-13] MEDS ORDERED: fentaNYL citrate PF 100 MCG/2 ML VIAL IV PRN (17:18)
[2024-08-13] MEDS: DIATRIZOATE MEGLUMINE 30% 100ML VIAL INSTIL ONE (18:31)
--- NOTE | 2024-08-13 18:47 | Operative Report ---
PG Post Operative Report Pre & Post Diagnosis Operation Date: 08/13/24 11:40 Pre-Op Diagnosis: (1) Hydronephrosis with urinary obstruction due to renal calculus Post-Op Diagnosis: (1) Hydronephrosis with urinary obstruction due to renal calculus I identified the patient and participated in the time-out.: Yes Procedure Operation Date: 08/13/24 11:40 Actual Procedures p Cystoscopy, Right Stent Placement(Right) - Aramis Cm MD Surgeon Aramis Cm MD Audience Coordinator None Estimated Blood Loss 5 Findings See Below Incredibly challenging anatomy Patient had hematuria from catheter placement in ED which made visualization difficult. He had a very high, rigid bladder neck that made getting a rigid cystoscope into the bladder almost impossible. Visualization was poor. Ultimately able to get a right ureteral stent in appropriate position. Contrast was still in collecting system from CT scan so did not have to do retrograde. Specimens None Drains 1. 6 Italian by 26 cm right ureteral stent 2. 20 Italian catheter with 10 cc in balloon Anesthesia Type MAC Complications none Indications 78-year-old male with a history of polio who was admitted to the hospital with 2 right proximal obstructing ureteral calculi and subjective fevers at home. Risk and benefits discussed and proceeded to the OR for right stent placement. Description of Procedure After informed consent was obtained, the patient was transported to the operative suite. MAC anesthesia was induced. They were placed in dorsal lithotomy position and prepped and draped in sterile fashion. They received preoperative ceftriaxone. An appropriate surgical timeout was performed. He already had hematuria from catheter placement so when I attempted to advance a 21 Italian rigid cystoscope per urethra, visualization was poor due to blood in the urethra. He had an incredibly high, rigid bladder neck which made initially entry into the bladder unsuccessful with the cystoscope. I swapped out to a flexible cystoscope and was able to gain entry into the bladder however visualization was poor due to hematuria. I intermittently drained the bladder with a 20 Italian catheter and attempted to go back in with the flexible cystoscope but could not adequately see well enough to find the ureteral orifice. We very carefully repositioned the patient so he was slightly hanging off the table and I was able to deflect my hand more in a downward fashion. I was finally able to get a rigid cystoscope into the bladder but visualization was again poor. I cycled the bladder several times and then fortunately was able to find his right ureteral orifice. I advanced a sensor wire into the proximal ureter but met some redundancy. I advanced a 5 Italian open-ended catheter over this wire and removed the wire. I then was able to advance a zip wire into the kidney and confirmed this with fluoroscopy. Due to his CT scan, he still had retained contrast in the collecting system so I did not have to shoot a retrograde pyelogram. I advanced the 5 Italian open-ended over the zip wire into the renal pelvis. I removed the zip wire and exchanged for a sensor wire. 5 Italian open-ended catheter was removed. I then deployed a 6 Italian by 26 cm right ureteral stent with good proximal coil in the kidney confirmed fluoroscopically and a good distal coil confirmed in the bladder under direct visualization. Cystoscope was removed and bladder was left full. A 20 Italian Garrison catheter was inserted with return of light pink urine. Balloon was inflated with 10 cc of sterile water. This concluded the end of the case. All counts correct at the end of the case. I was present scrubbed and actively participated for the entirety of the procedure. I attest to the content of the Intraoperative Record and any orders documented therein. Any exceptions are noted below.
--- NOTE | 2024-08-13 19:17 | Anesthesiology Progress Note ---
Date of Service August 13, 2024 Anesthesia Post Procedure Vital Signs Vital Signs: Temp Pulse Pulse Pulse Resp BP BP 08/13/24 18:55 90 22 147/90 H 08/13/24 18:46 36.3 C L 100 H 22 151/90 H 08/13/24 17:12 36.8 C 71 20 190/95 H 08/13/24 16:11 66 08/13/24 16:00 61 20 155/83 H 08/13/24 15:00 58 L 20 08/13/24 15:00 145/85 H 08/13/24 15:00 145/85 H 08/13/24 15:00 145/85 H 08/13/24 15:00 145/85 H 08/13/24 14:57 63 20 08/13/24 14:33 61 14 08/13/24 14:21 64 08/13/24 14:12 61 16 08/13/24 14:06 64 16 08/13/24 14:00 131/83 08/13/24 14:00 08/13/24 13:42 66 21 08/13/24 13:12 71 08/13/24 13:06 75 21 08/13/24 13:00 132/86 08/13/24 12:48 94 H 17 08/13/24 12:45 86 08/13/24 12:21 98 H 08/13/24 12:12 97 H 17 08/13/24 12:12 97 H 08/13/24 12:09 164/92 H 08/13/24 12:06 99 H 08/13/24 11:54 96 H 23 08/13/24 11:39 96 H 08/13/24 11:21 74 22 08/13/24 11:15 74 19 08/13/24 11:03 73 22 08/13/24 10:51 69 24 08/13/24 10:39 69 17 08/13/24 10:38 08/13/24 10:35 37 C 73 15 159/88 H Pulse Ox O2 Del Method O2 Flow Rate 08/13/24 18:55 97 Nasal Cannula 3 08/13/24 18:46 96 Nasal Cannula 3 08/13/24 17:12 99 Nasal Cannula 3 08/13/24 16:11 08/13/24 16:00 99 CPAP 08/13/24 15:00 98 08/13/24 15:00 08/13/24 15:00 08/13/24 15:00 08/13/24 15:00 08/13/24 14:57 08/13/24 14:33 99 08/13/24 14:21 100 08/13/24 14:12 100 08/13/24 14:06 100 08/13/24 14:00 08/13/24 14:00 Room Air 08/13/24 13:42 93 08/13/24 13:12 98 08/13/24 13:06 99 08/13/24 13:00 08/13/24 12:48 97 08/13/24 12:45 98 08/13/24 12:21 97 08/13/24 12:12 97 08/13/24 12:12 08/13/24 12:09 08/13/24 12:06 95 08/13/24 11:54 90 08/13/24 11:39 92 08/13/24 11:21 99 08/13/24 11:15 99 08/13/24 11:03 98 08/13/24 10:51 08/13/24 10:39 99 08/13/24 10:38 Nasal Cannula 08/13/24 10:35 98 Nasal Cannula 3 Pain Intensity Right Flank: Pain Intensity: 0 Transfer of Care Handoff Completed per policy Notes Mental Status: alert / awake / arousable and participated in evaluation Patient Amnestic to Procedure: Yes Nausea / Vomiting: adequately controlled Pain: adequately controlled Airway Patency, RR, SpO2: stable & adequate BP & HR: stable & adequate Hydration State: stable & adequate Anesthetic Complications: no major complications apparent
--- OUTSIDE RECORDS SUMMARY | 2024-08-13 20:39 | External Medical Summary | Summary of Care ---
Author Name Unknown Organization [facility] Address [address] [place] [address] Phone [phone] Care Team Providers Care Restaurant Area Director Name Role Phone Sin Benoit MD Primary Care Provider [phone] Reason for Visit * Reason Comments Acute Right sided Back Charo n-Video Encounter Details Date Type Department Care Team (Late st Contact Info) Description 07/28/2024 5:40 PM EDT Telemedicine [facility] [address] [place] [address] Carla Santana PA-C [address] [place] [address] Urinary tract infection without hematuria, site unspecified*; Rt flank pain Allergies No known active allergiesdocumented as of this encounter (statuses as of 07/28/2024) Medications Medication Sig Dispensed Refills Start Date End Date Status oxygen IN GASIndications:Chr onic hypoxemic respiratory failure (HCC),Post-polio syndrome,Restricti ve lung disease,Nocturnal hypoxemia 2.LPM with exertion and 2.5 LPM bled through BIPAP with sleep. Needs portable tanks and stationary concentrator. 1 Each 02/25/2021 Active Triamcinolone Acetonide 0.1 % External Cream (Aristocort)Indica tions:Rash and nonspecific skin eruption Apply topically to affected area 2 times a day. To affected area. 80 g 5 09/01/2021 Active Additional Information Patient not taking.Reported on 01/31/2024 BiPAP every night at bedtime. Active Lisinopril 20 MG Oral Tablet (Prinivil)Indicati ons:HTN, goal below 140/90 TAKE 1 TABLET BY MOUTH EVERY DAY 90 Tablet 3 01/15/2024 Active Atenolol 25 MG Oral Tablet (Tenormin) TAKE 1 TABLET BY MOUTH EVERY DAY IN THE MORNING 90 Tablet 3 07/11/2024 Active Ciprofloxacin HCl 500 MG Oral Tablet (Cipro)Indications :Urinary tract infection without hematuria, site unspecified,Rt flank pain Take 1 Tablet by mouth in the morning and 1 Tablet before bedtime. Do all this for 10 days. 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 HTN, goal below 130/80 Paraplegia documented as of this encounter (statuses as of 07/28/2024) Resolved Problems Problem Noted Date Diagnosed Date Resolved Date Nocturnal hypoxemia 02/25/2021 02/13/20 23 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/2017 01/27/2020 Dyslipidemia 03/05/2014 01/27/2020 Vitamin D deficiency 03/05/2014 020 HTN, goal below 140/90 02/27/200101/26 DIVERTICULITIS OF COLON 10/10/200012/31 POLIO OSTEOPATHY-MULT 2019 documented as of this encounter (statuses as of 07/28/2024) Immunizations Name Administration Dates Next Due COVID-19 mRNA, LNP-s, No Pre serve, 2-Dose Series ([employer]) 12/09/2020,11/18/2020 H1N1 2009 Influenza, IM 02/02/2010 Pneumococcal Conjugate Vacc, 13 Valent (Prevnar) 02/17/2016 Pneumococcal Polysaccharide PPV23 (Pneumovax) Seasonal Influenza, High Dos e, Trivalent, PF, IM (Fluzone HD) 06/19/2019 Seasonal Influenza, PF, 6 M & above, IM , (FluLaval or Fluzone) 07/08/2018 Seasonal Influenza, Quadrivalent, No Preserve, I M 06/19/2017 TDAP, Age 7 and older, IM (Adacel) 03/09/2009 Varicella Zoster Vaccine (Adult) 04/16/2013 documented as of this encounter Social History Tobacco Use Types Packs/Day Years Used Date Smoking Tobacco: Former Cigarettes 1 15 0 04/18/1967 - 04/18/1982 Smokeless Tobacco: Never Alcohol Use Standard Drinks/Week Comments Never 0 (1 standard drink = 0.6 oz pur e alcohol) AUDIT-C Answer Date Recorded Q1: How often do you have a drink containing alc ohol? Never 01/28/2021 Average Number of Drinks Not on file 021 Frequency of Binge Drinking Not on file 01/01 PHQ-2 Answer Date Recorded PHQ-2 Score -1 08/06/2018 Hunger Vital Sign Answer Date Recorded Within the past 12 months, y ou worried that your food would run out before you got the money to buy more. Never true 01/30/20 24 Within the past 12 months, t he food you bought just didn't last and you didn't have money to get more. Never true 01/30/2024 Childcare Answer Date Recorded Do you feel overwhelmed with taking care of a child, family member or friend? No 01/30/2024 Does your family need help f inding childcare? (Household - for ages 0-17 years) Not on file 01/30/2024 Clothing Answer Date Recorded Have you been unable to get clothing when it was really needed? No 01/30/2024 Is your family able to get c lothes or diapers when needed? (Household - for ages 0-17 years) Not on file 01/30/2024 Personal Safety Answer Date Recorded Do you feel unsafe or have concerns for your saf ety? No 01/30/2024 Do you have concerns for you r family's safety? (Household - for ages 0-17 years) Not on file 01/30/2024 Utilities Answer Date Recorded Do you have trouble paying y our heating, water, or electric bill? No 01/30/2024 Is your family able to pay t he heat, water, or electric bill? (Household - for ages 0-17 years) Not on file 01/30/2024 Does your family have access to good internet? (Household - for ages 0-17 years) Not on file 01/30/2024 Employment Status Answer Date Recorded Are you unemployed or without regular income? No 01/30/2024 Does the household have a re gular source of income? (Household - for ages 0-17 years) Not on file 01/30/2024 Social Connections Answer Date Recorded How often do you feel lonely or isolated from th ose around you? Never 01/30/2024 Financial Resource Strain Answer Date R ecorded Do you have any trouble payi ng for your medications, or do you think you might in the future? No 01/30/2024 Does your family have troubl e paying for medicine? (Household - for ages 0-17 years) Not on file 01/30/2024 Transportation Needs Answer Date Record ed READ ONLY Do you have troubl e getting a ride to medical visits or work? Never True 01/30/2024 Does your family have a hard time getting a ride to doctors visits? (Household - for ages 0-17 years) Not on file 01/30/2024 Has lack of transportation k ept you from medical appointments, meetings, work, or from getting things needed for daily living? Check all that apply. (Adult - for ages 18 years and over) Not on file 01/30/2024 Do you (or your family) have trouble finding or paying for a ride (transportation)? (Household - for ages 0-17 years) Not on file 01/30/2024 Housing Stability Answer Date Recorded Do you currently live in a s helter or have no steady place to sleep at night? No 01/30/2024 READ ONLY Do you think you a re at risk of becoming homeless? No 01/30/2024 Does your family worry about paying for your home or becoming homeless? (Household - for ages 0-17 years) Not on file 0 01/30/2024 Are you homeless or worried that you might be in the future? (Adult - for ages 18 years and over) Not on file Are you (or your family) christy eless or worried that you might be in the future? (Household - for ages 0-17 years) Not on file Food Insecurity Answer Date Recorded Do you need food for this week? No 01/30/2024 Are you able to get enough f ood for your family? (Household - for ages 0-17 years) Not on file 01/30/2024 Does your family need food t his week? (Household - for ages 0-17 years) Not on file 01/30/2024 Do you always have enough fo od for your family? (Household - for ages 0-17 years) Not on file 01/30/2024 Sex and Gender Information Value Date Recorded Sex Assigned at Male 01/30/2024 2:03 PM EDT Gender Identity Male 01/30/2024 2:03 PM EDT Sexual Orientation Straight 01/30/2024 2: 03 PM EDT Job Start Date Occupation Industry Not on file Not on file Not on file documented as of this encounter Progress Notes * Carla Santana PA-C - 07/28/2024 5:38 PM EDT Patient location: HOME. I was in a hospital or clinic location. After connecting through televideo,patient was verified with two unique identifiers. Patient (or authorized legal account executive sales representative) was then informed that this was a Telemedicine visit and being conducted confidentially over secure lines. Methods to assure confidentiality were taken. Patient acknowledged consent and understanding of pr ivacy and security of the Telemedicine visit. The patient agreed to participate. Subjective Ortega Coronel is a 78 year old male. Chief Complaint Patient presents with Acute Right sided Back Pain-Video HPI: Back Pain This is a new problem. The current episode started in the past 7 days. The problem occurs constantly. Pain location: in the "kidney" area. The quality of the pain is described as aching. The pain does not radiate. The pain is at a severity of 3/10. The pain is mild. The pain is Worse during the day. Associated symptoms include a fever (99). Pertinent negatives include no abdominal pain, bladder incontinence, bowel incontinence, dysuria, pelvic pain or tingling. He has tried NSAIDs for the symptoms. The treatment provided no relief. 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 He is afraid he has a kidney sotone. Has had in the past and passed on it's own. He also wonders if he just has an infection. Has low grade temp, fatigue and feels lousy. No N/V/D. He is not very mobile. Does not want to go for a CTtoday. Just wants to try antibiotic to see if thsi will treat symptoms. PMH: Patient Active Problem List Diagnosis Colostomy status ([facility]) REGLA (obstructive sleep apnea) Wheelchair bound Restrictive lung disease Oxygen dependent HTN, goal below 130/80 Paraplegia (HCC) Post-polio syndrome Chronic hypoxemic respiratory failure (HCC) Debility Current Outpatient Medications Medication Sig Dispense Refill Ciprofloxacin HCl 500 MG Oral Tablet (Cipro) Take 1 Tablet by mouth in the morning and 1 Tablet before bedtime. Do all this for 10 days. 20 Tablet 0 oxygen IN GAS 2.LPM with exertion and 2.5 LPM bled through BIPAP with sleep. Needs portable tanks and stationary concentrator. 1 Each 0 Triamcinolone Acetonide 0.1 % External Cream (Aristocort) Apply topically to affected area 2 times a day. To affected area. (Patient not taking: Reported on 01/31/2024) 80 g 5 BiPAP every night at bedtime. Lisinopril 20 MG Oral Tablet (Prinivil) TAKE 1 TABLET BY MOUTH EVERY DAY 90 Tablet 3 Atenolol 25 MG Oral Tablet (Tenormin) TAKE 1 TABLET BY MOUTH EVERY DAY IN THE MORNING 90 Tablet 3 No current facility-administered medications for this visit. Review of patient's allergies indicates: No Known Allergies Review of Systems Constitutional: Positive for fever (99). Negative for chills. Gastrointestinal: Negative for abdominal pain and bowel incontinence. Genitourinary: Negative for bladder incontinence, dysuria, frequency and pelvic pain. Musculoskeletal: Positive for back pain. Neurological: Negative for tingling. Objective There were no vitals taken for this visit. Physical Exam Constitutional: General: He is not in acute distress. Appearance: Normal appearance. He is not ill-appearing, toxic-appearing or diaphoretic. HENT: Head: Normocephalic and atraumatic. Pulmonary: Effort: Pulmonary effort is normal. Comments: Nasal canula in place for oxygen Musculoskeletal: General: Normal range of motion. Skin: Findings: No rash ( checked back for me). Neurological: Mental Status: He is alert. No other exam due to video visit ASSESSMENT/PLAN: Urinary tract infection without hematuria, site unspecified (Primary) - Ciprofloxacin HCl 500 MG Oral Tablet (Cipro); Take 1 Tablet by mouth in the morning and 1 Tablet before bedtime. Do all this for 10 days. Rt flank pain - Ciprofloxacin HCl 500 MG Oral Tablet (Cipro); Take 1 Tablet by mouth in the morning and 1 Tablet before bedtime. Do all this for 10 days. He will filter urine He will drink 8 oz of water every hour He will seek care at the closest ER if his symptoms worsen or do not improve with the antibiotic orif shows any signs of sepsis including confusion, fever, fatigue, vomiting, chills, rigors. Follow Up: Return for To ER if symtoms worsen, Routine appt as scheduled, As needed with PCP. | For: To ER if symtoms worsen, Routine appt as scheduled, As needed with PCP Carla Santana PA-C documented in this encounter Plan of Treatment Health Maintenance Due Date Last Done Comments Albumin/Creatinine Ratio 1963 Hepatitis C Screening 1963 Adult Wellness Visit 2012 Zoster Vaccines (2 of 3) 06/11/2013 04/16/2013 DTap/Tdap Vaccines (2 - Td or Tdap) 03/09/2019 03/09/2009, 10/01/1999 Depression Screening 05/10/2019 05/10/2018 COVID-19 Vaccine ( season) 2024 07/12/2023, 07/06/2021, 12/09/2020, Additional history exists Influenza Vaccine (FLU shot) (#1) 2024 08/01/2021, 06/19/2019, 07/08/2018, Additional history exists GFR 01/20/2025 01/21/2024, 07/02, 04/15/2021, Additional history exists Pneumococcal Vaccine: 65+ Years Completed 02/17/2016, 02/21/2012 HPV (Gardasil) Vaccine Aged Out No lo nger eligible based on patient's age to complete this topic Hepatitis B Vaccine Aged Out No longe r eligible based on patient's age to complete this topic MENINGOCOCCAL (MENACTRA/MENVEO) Aged Out No longer eligible based on patient's age to complete this topic documented as of this encounter Medical Devices Not on filedocumented as of this encounter Visit Diagnoses Diagnosis Urinary tract infection without hematuria, site unspecified- Primary Rt flank pain Abdominal pain, unspecified site documented in this encounter Care Teams Restaurant Area Director Relationship Specialty Start Date End Date Sin Benoit MD [address] [place] [address] PCP - General Family Medicine 01/27/20 documented as of this encounter
--- OUTSIDE RECORDS SUMMARY | 2024-08-13 20:39 | External Medical Summary | Summary of Care ---
Author Name Unknown Organization [facility] Address [address] [place] [address] Phone [phone] Care Team Providers Care Back Tender Cloth Printing Name Role Phone Sin Benoit MD Primary Care Provider [phone] Reason for Visit * Reason Onset Date Comments FYI 04/02/2024 Encounter Details Date Type Department Care Team (Late st Contact Info) Description 04/02/2024 Telephone Family Practice [facility] [address] [place] [address] Sin Benoit MD [address] [place] [address] FYI Allergies No known active allergiesdocumented as of this encounter (statuses as of 05/07/2024) Medications Medication Sig Dispensed Refills Start Date End Date Status oxygen IN GASIndications: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 Needs portable tanks and stationary concentrator. 1 Each 02/25/2021 Active Triamcinolone Acetonide 0.1 % External Cream (Aristocort)Indicat ions:Rash and nonspecific skin eruption Apply topically to affected area 2 times a day. To affected area. 80 g 5 09/01/2021 Active Additional Information Patient not taking.Reported on 01/31/2024 BiPAP every night at bedtime. Active Atenolol 25 MG Oral Tablet (Tenormin) Take 1 Tablet by mouth in the morning. 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 HTN, goal below 130/80 Paraplegia documented as of this encounter (statuses as of 05/07/2024) Resolved Problems Problem Noted Date Diagnosed Date Resolved Date Nocturnal hypoxemia 02/25/2021 02/13/20 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/2017 01/27/2020 Dyslipidemia 03/05/2014 01/27/2020 Vitamin D deficiency 03/05/2014 020 HTN, goal below 140/90 02/27/200101/26 DIVERTICULITIS OF COLON 10/10/200012/31 POLIO OSTEOPATHY-MULT 2019 documented as of this encounter (statuses as of 05/07/2024) Immunizations Name Administration Dates Next Due COVID-19 mRNA, LNP-s, No Pre serve, 2-Dose Series ([employer]) 12/09/2020,11/18/2020 H1N1 2009 Influenza, IM 02/02/2010 Pneumococcal Conjugate Vacc, 13 Valent (Prevnar) 02/17/2016 Pneumococcal Polysaccharide PPV23 (Pneumovax) 02/21/2012 Seasonal Influenza, PF, 6 M & above, IM , (FluLaval or Fluzone) 07/08/2018 Seasonal Influenza, Quadriva lent, No Preserve, IM 06/19/2017 Seasonal Influenza, Split, I IV3, With Preserve, Inj 09/11/2005,07/26/2004,09/08/2003,08/08 Seasonal Influenza, Trivalen t, High Dose, No Preserve, IM 06/19/2019 TD - Tetanus/Diptheria (ADULT) 10/01/1999 TDAP, Age 7 and older, IM (Adacel) [...] on file documented as of this encounter Miscellaneous Notes * Telephone Encounter - Tatum Valdez OSA - 05/07/2024 10:01 AM EDT Reason for patient's call: Pt spouse calling regarding a telephone call they received on their homeline from the [employer]. Regarding Maynor Self, [employer] to come and visit the house. She is just concerned due to the call coming to their land line which they only have for back up; calls should be made to cell phone. [phone] She is requesting a return call to assure that this was a valid telephone call and not a spam. Thank you * Telephone Encounter - Rena Wetzel LPN - 05/06/2024 11:21 AM EDT Faxed additional forms requested, signed by PCP * Telephone Encounter - Shahla Robins OSA - 05/05/2024 11:57 AM EDT Sarahi from [employer] is stating they requested additional forms on 04/30/24. They have notreceived any response. They faxed They will refax the forms to [phone] * Telephone Encounter - Mariajose Mendoza LPN - 04/29/2024 9:13 AM EDT Faxed * Telephone Encounter - Marly Kaba CRNP - 04/25/2024 4:36 PM EDT Forms completed and given to Sara Castillo, KIMMY, RADHA [facility] * Telephone Encounter - Rena Wetzel LPN - 04/25/2024 4:04 PM EDT Do you have forms requested for motility device? * Telephone Encounter - Davina Anderson OSA - 04/24/2024 9:15 AM EDT Nighat with [employer] calling to verify that patient kept with appt on 04/22 with Marly Kaba and if paperwork was able to be complete at that time Requesting office to fax completed forms back at [phone] * Telephone Encounter - Marly Kaba CRNP - 04/17/2024 3:05 PM EDT Noted Will address at appt on 04/22/2024 KIMMY Castillo, RADHA [facility] * Telephone Encounter - Patricia Cavazos OSA - 04/17/2024 2:05 PM EDT Reason for patient's call: Edi states she needs to confirm with a nurse that forms were received and give 2-3 instructions. Caller was transferred to Yris at the clinic. * Telephone Encounter - Yris Hill LPN - 04/17/2024 2:05 PM EDT Danica calling from [employer], asking if the paperwork that was faxed had been received. Advised that it has and it sitting in the providers bin for completion after appt on 04/22. She had a couple instructions regarding filling out the form: Page 2- Billing code that should be used is [id number] Provider will will get reimbursement for filling out paperwork. Face to Face notes need to include: reason for visit---- power mobility device evaluation Will need Patient's Height, weight and diagnosis for page 3 and 4. Transfer all the answers from page 3 and 4 to page 5 and 6 including height weight and diagnosis. She stated that they need the form completed and faxed back within 3 days of the visit. Danica's call back information if there is any questions regarding the form: EXT: [phone] FAX: [phone] * Telephone Encounter - Isis Samuels OSA - 04/02/2024 12:30 PM EDT Good afternoon, V from [employer] called, stated pt call them requesting power mobility device, per V Pt's need mobility evaluation from PCP, Pt have a future appt. For 04/22. Please advise. Thank you documented in this encounter Plan of Treatment Health Maintenance Due Date Last Done Comments Albumin/Creatinine Ratio 1963 Hepatitis C Screening 1963 Adult Wellness Visit 2012 Zoster Vaccines (2 of 3) 06/11/2013 04/16/2013 DTaP,Tdap,and Td Vaccines (2 - Td or Tdap) 03/09/2019 03/09/2009, 10/01/1999 Depression Screening 05/10/2019 05/10/2018 COVID-19 Vaccine ( season) 2023 07/12/2023, 07/06/2021, 12/09/2020, Additional history exists Influenza [...] Not on filedocumented as of this encounter Care Teams Back Tender Cloth Printing Relationship Specialty Start Date End Date Sin Benoit MD [address] [place] [address] PCP - General Family Medicine 01/27/20 documented as of this encounter
--- OUTSIDE RECORDS SUMMARY | 2024-08-13 20:39 | External Medical Summary | Summary of Care ---
Author Name Unknown Organization [facility] Address [address] [place] [address] Phone [phone] Care Team Providers Care Supervisor Hot Strip Mill Name Role Phone Sin Benoit MD Primary Care Provider [phone] [phone] Reason for Visit * Reason Onset Date Comments FYI 04/02/2024 Encounter Details Date Type Department Care Team (Late st Contact Info) Description 04/02/2024 Telephone Family Practice [facility] [address] [place] [address] Sin Benoit MD [address] [place] [address] FYI Allergies No known active allergiesdocumented as of this encounter (statuses as of 05/15/2024) Medications Medication Sig Dispensed Refills Start Date End Date Status oxygen IN GASIndications:Asset Protection Associate franco hypoxemic respiratory failure (HCC),Post-polio syndrome,Restrictiv e [...] as of this encounter (statuses as of 05/15/2024) Active Problems Problem Noted Date Diagnosed Date Debility 04/22/2024 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/28/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 Oxygen dependent 02/17/2016 Restrictive lung disease 03/05/2014 Wheelchair bound 02/27/2013 REGLA (obstructive sleep apnea) 12/24/2001 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 HTN, goal below 130/80 Paraplegia documented as of this encounter (statuses as of 05/15/2024) Resolved Problems Problem Noted Date Diagnosed Date Resolved Date Nocturnal hypoxemia 02/25/2021 02/13/20 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/2017 01/27/2020 Dyslipidemia 03/05/2014 01/27/2020 Vitamin D deficiency 03/05/2014 020 HTN, goal below 140/90 02/27/200101/26 DIVERTICULITIS OF COLON 10/10/200012/31 POLIO OSTEOPATHY-MULT 2019 documented as of this encounter (statuses as of 05/15/2024) Immunizations Name Administration Dates Next Due COVID-19 [...] encounter Miscellaneous Notes * Telephone Encounter - Cherry Zhang OSA - 05/15/2024 1:06 PM EDT Reason for patient's call: requesting to speak to a nurse in regards to forms that were faxed over. Caller was transferred to [place] at the clinic. * Telephone Encounter - Esther Clemente OSA - 05/13/2024 4:21 PM EDT Ty from [employer] requesting an update on fax documentation for electric wheelchair for patient on 05/08/24. Please fill out the sitting evaluation form and the order request. Documentation to be review and sign by provider. Please fax over or email back. attention yT Samano Or email: [email or web address] * Telephone Encounter - Rena Wetzel LPN - 05/07/2024 1:11 PM EDT Called and spoke with pts , correct phone number in chart * Telephone Encounter - Tatum Valdez OSA - 05/07/2024 10:01 AM EDT Reason for patient's call: Pt spouse calling regarding a telephone call they received on their homeline from the [employer], Flav[employer]. Regarding Maynor Self, ADP to come and visit the house. She is just concerned due to the call coming to their land line which they only have for back up; calls should be made to cell phone. [phone] She is requesting a return call to assure that this was a valid telephone call and not a spam. Thank you * Telephone Encounter - Rena Wetzel LPN - 05/06/2024 11:21 AM EDT Faxed additional forms requested, signed by PCP * Telephone Encounter - Shahla Robins OSA - 05/05/2024 11:57 AM EDT Sarahi from [employer] is stating they requested additional forms on 04/30/24. They have notreceived any response. They faxed They will refax the forms to [phone] * Telephone Encounter - Mariajose Mendoza LPN - 04/29/2024 9:13 AM EDT Faxed * Telephone Encounter - Marly Kaba CRNP - 04/25/2024 4:36 PM EDT Forms completed and given to Sara Castillo, MSN, RADHA [facility] signed by Marly Kaba CRNP at 04/25/2024 4:36 PM EDT * Telephone Encounter - Rena Wetzel LPN - 04/25/2024 4:04 PM EDT Do you have forms requested for motility device? * Telephone Encounter - Davina Anderson OSA - 04/24/2024 9:15 AM EDT Nighat with [employer] calling to verify that patient kept with appt on 04/22 with Marly Kaba and if paperwork was able to be complete at that time Requesting office to fax completed forms back at [phone] * Telephone Encounter - Marly Kaba CRNP - 04/17/2024 3:05 PM EDT [facility] Anna, KIMMY, RADHA [facility] * Telephone Encounter - Patricia Cavazos OSA - 04/17/2024 2:05 PM EDT Reason for patient's call: Edi states she needs to confirm with a nurse that forms were received and give 2-3 instructions. Caller was transferred to [facility] at the clinic. * Telephone Encounter - Yris Hill LPN - 04/17/2024 2:05 PM EDT Danica calling from [employer], asking if the paperwork that was faxed [...] questions regarding the form: EXT: [phone] FAX: [phone] * Telephone Encounter - Isis Samuels OSA - 04/02/2024 12:30 PM EDT Carroll green, V from [employer] called, stated pt call them requesting power [...] filedocumented as of this encounter Care Teams Supervisor Hot Strip Mill Relationship Specialty Start Date End Date Sin Benoit MD [address] [place] [address] PCP - General Family Medicine 01/27/20 documented as of this encounter
--- OUTSIDE RECORDS SUMMARY | 2024-08-13 20:39 | External Medical Summary | Summary of Care ---
Author Name Unknown Organization [facility] Address [address] [place] [address] Phone [phone] Care Team Providers Care Deputy County Clerk Name Role Phone Sin Benoit MD Primary Care Provider [phone] [phone] Reason for Visit * Reason Onset Date Comments Appointment 08/12/2024 Encounter Details Date Type Department Care Team (Late st Contact Info) Description 08/12/2024 Telephone Family Practice [facility] [address] [facility] [place] [address] Sin Benoit MD [address] [facility] [place] [address] Appointment Allergies No known active allergiesdocumented as of this encounter (statuses as of 08/13/2024) Medications oxygen IN GASIndications:C hronic hypoxemic respiratory failure (HCC),Post-polio syndrome,Restric tive lung disease,Nocturna l hypoxemia 2.LPM with exertion and 2.5 LPM bled through BIPAP with sleep. Needs portable tanks and stationary concentrator. 1 Each 1 Active Triamcinolone Acetonide 0.1 % External Cream (Aristocort)Caridad cations:Rash and nonspecific skin eruption Apply topically to affected area 2 times a day. To affected area. 80 g 5 1 Active Additional Information Patient not taking.Reported on 01/31/2024 BiPAP every night at bedtime. 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 HTN, goal below 130/80 Paraplegia documented as of this encounter (statuses as of 08/13/2024) Resolved Problems Problem Noted Date Diagnosed Date Resolved Date Nocturnal hypoxemia 02/25/2021 02/13/20 23 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/2017 01/27/2020 Dyslipidemia 03/05/2014 01/27/2020 Vitamin D deficiency 03/05/2014 020 HTN, goal below 140/90 02/27/200101/26 DIVERTICULITIS OF COLON 10/10/200012/31 POLIO OSTEOPATHY-MULT 2019 documented as of this encounter (statuses as of 08/13/2024) Immunizations Name Administration Dates Next Due COVID-19 [...] Assigned at Male 01/30/2024 2:03 PM EDT Legal Sex Male 7:21 AM EST Gender Identity Male 01/30/2024 2:03 PM EDT Sexual Orientation Straight 01/30/2024 2: 03 PM EDT documented as of this encounter Miscellaneous Notes * Telephone Encounter - Jimena Louis OSA - 08/13/2024 8:23 AM EST Appt scheduled with . She states this is back pain not abd pain * Telephone Encounter - Rena Wetzel LPN - 08/12/2024 6:15 PM EST Please call and assist pts with appt * Telephone Encounter - Yris Connors OSA - 08/12/2024 3:01 PM EST calling again if they can give her enough notice for the ride service , if they can call her to schedule, gets a little confused when he's on the phone if they can call her to get this scheduled * Telephone Encounter - Jennifer Ross OSA - 08/12/2024 1:49 PM EST No Appointments Available Patient declined appointments?: No What Visit Type is needed? Acute If Acute Visit Type is needed, were surrounding clinics offered to patient (Yes/No)? N/A Was patient offered appointments with other available providers (Yes/No)? N/A See Call Details? (Yes or No): Yes documented in this encounter Plan of Treatment Upcoming Encounters Date Type Department Care Team (Late st Contact Info) Description 08/15/2024 10:00 AM EST Office Visit Family [facility] [address] [place] [address] Saumya Jose CRNP [address] [place] [address] Health Maintenance Due Date Last Done Comments [...] filedocumented as of this encounter Care Teams Deputy County Clerk Relationship Specialty Start Date End Date Sin Benoit MD [address] [place] [address] PCP - General Family Medicine 01/27/20 documented as of this encounter
--- OUTSIDE RECORDS SUMMARY | 2024-08-13 20:39 | External Medical Summary | Summary of Care ---
Author Name Unknown Organization [facility] Address [address] [place] [address] Phone [phone] Care Team Providers Care Gauge And Instrument Inspector Name Role Phone Sin Benoit MD Primary Care Provider [phone] Reason for Visit * Reason Onset Date Comments Durable Medical Equipment 06/06/2024 Encounter Details Date Type Department Care Team (Late st Contact Info) Description 06/06/2024 Telephone Sleep Disorders Ctr [facility] [address] [place] [address] Services, Scheduling [address] [place] [address] Durable Medical Equipment Allergies No known active allergiesdocumented as of this encounter (statuses as of 06/06/2024) Medications Medication Sig Dispensed Refills Start Date End Date Status oxygen IN GASIndications:Air Conditioning Coil Assembler franco hypoxemic respiratory failure (HCC),Post-polio syndrome,Restrictiv e [...] as of this encounter (statuses as of 06/06/2024) Active Problems Problem Noted Date Diagnosed Date Debility 04/22/2024 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/28/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 Oxygen dependent 02/17/2016 Restrictive lung disease 03/05/2014 Wheelchair bound 02/27/2013 REGLA (obstructive sleep apnea) 12/24/2001 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 HTN, goal below 130/80 Paraplegia documented as of this encounter (statuses as of 06/06/2024) Resolved Problems Problem Noted Date Diagnosed Date Resolved Date Nocturnal hypoxemia 02/25/2021 02/13/20 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/2017 01/27/2020 Dyslipidemia 03/05/2014 01/27/2020 Vitamin D deficiency 03/05/2014 020 HTN, goal below 140/90 02/27/200101/26 DIVERTICULITIS OF COLON 10/10/200012/31 POLIO OSTEOPATHY-MULT 2019 documented as of this encounter (statuses as of 06/06/2024) Immunizations Name Administration Dates Next Due COVID-19 mRNA, LNP-s, No Pre serve, 2-Dose Series ([employer]) 12/09/2020,11/18/2020 H1N1 2009 Influenza, IM 02/02/2010 Pneumococcal [...] encounter Miscellaneous Notes * Telephone Encounter - Yris Sarah OSA - 06/06/2024 2:51 PM EDT Patient is calling in to schedule an appointment. He is scheduled for 06/13. He is having an issue with his Dreamstation humidifier. It has stopped working. He needs a prescription for a doctor in order to order a new humidifier from [employer] for his machine. He is asking if a prescription can please be sent to his home since his upcoming appointment is a video visit. Please advise. documented in this encounter Plan of Treatment Upcoming Encounters Date Type Department Care Team (Late st Contact Info) Description 06/13/2024 10:00 AM EDT Telemedicine Sleep Disorders Ctr [facility] [address] [facility] [place] [phone] Sera Degroot CRNP [address] [facility] [place] [address] Health Maintenance Due Date Last Done Comments [...] filedocumented as of this encounter Care Teams Gauge And Instrument Inspector Relationship Specialty Start Date End Date Sin Beonit MD [address] [facility] [place] [address] PCP - General Family Medicine 01/27/20 documented as of this encounter
--- OUTSIDE RECORDS SUMMARY | 2024-08-13 20:39 | External Medical Summary | Summary of Care ---
Author Name Unknown Organization [facility] Address [address] [place] [address] Phone [phone] Care Team Providers Care Senior Strategy Manager Name Role Phone Sin Benoit MD Primary Care Provider [phone] [phone] Reason for Visit * Reason Onset Date Comments Durable Medical Equipment 06/06/2024 Encounter Details Date Type Department Care Team (Late st Contact Info) Description 06/06/2024 Telephone [facility] [address] [place] [address] Services, Scheduling [address] [place] [address] Durable Medical Equipment Allergies No known active allergiesdocumented as of this encounter (statuses as of 06/10/2024) Medications Medication Sig Dispensed Refills Start Date End Date Status oxygen IN GASIndications:Line Ordering Clinician franco hypoxemic respiratory failure (HCC),Post-polio syndrome,Restrictiv e [...] as of this encounter (statuses as of 06/10/2024) Active Problems Problem Noted Date Diagnosed Date Debility 04/22/2024 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/28/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 Oxygen dependent 02/17/2016 Restrictive lung disease 03/05/2014 Wheelchair bound 02/27/2013 REGLA (obstructive sleep apnea) 12/24/2001 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 HTN, goal below 130/80 Paraplegia documented as of this encounter (statuses as of 06/10/2024) Resolved Problems Problem Noted Date Diagnosed Date Resolved Date Nocturnal hypoxemia 02/25/2021 02/13/20 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/2017 01/27/2020 Dyslipidemia 03/05/2014 01/27/2020 Vitamin D deficiency 03/05/2014 020 HTN, goal below 140/90 02/27/200101/26 DIVERTICULITIS OF COLON 10/10/200012/31 POLIO OSTEOPATHY-MULT 2019 documented as of this encounter (statuses as of 06/10/2024) Immunizations Name Administration Dates Next Due COVID-19 mRNA, LNP-s, No Pre serve, 2-Dose Series ([employer]) 12/09/2020,11/18/2020 H1N1 2009 Influenza, IM 02/02/2010 Pneumococcal Conjugate Vacc, 13 Valent (Prevnar) 02/17/2016 Pneumococcal Polysaccharide PPV23 (Pneumovax) 02/21/2012 Seasonal Influenza, High Dos e, Trivalent, PF, IM (Fluzone HD) 06/19/2019 Seasonal Influenza, PF, 6 M & above, IM , (FluLaval or Fluzone) 07/08/2018 Seasonal Influenza, Quadriva lent, No Preserve, IM 06/19/2017 Seasonal Influenza, Trivalen t, (IIV3), with Preserv, (Fluzone) 09/11/2005,07/26/2004,09/08/2003,08/08 TD - Tetanus/Diptheria (ADULT) 10/01/1999 TDAP, Age [...] encounter Miscellaneous Notes * Telephone Encounter - Kristen Rivera LPN - 06/10/2024 8:19 AM EDT Sent the pt a message with order attached. I asked him to let me know if he would also like it to be mailed. * Addendum Note - Leny Woodruff CRNP - 06/10/2024 7:14 AM EDTAddended by: LENY WOODRUFF on: 06/10/2024 07:14 AM Modules accepted: Orders * Telephone Encounter - Leny Woodruff CRNP - 06/10/2024 7:14 AM EDT Please mail to rx patient. * Telephone Encounter - Yris Sarah OSA - 06/06/2024 2:51 PM EDT Patient is calling in to schedule an appointment. He is scheduled for 06/13. He is having an issue with his Dreamstation humidifier. It has stopped working. He needs a prescription for a doctor in order to order a new humidifier from [employer] for his machine. He is asking if a prescription can please be sent to his home since his upcoming appointment is a video visit. Please advise. documented in this encounter Plan of Treatment Upcoming Encounters Date Type Department Care Team (Late st Contact Info) Description 06/13/2024 10:00 AM EDT [facility] [address] [place] [phone] Leny Woodruff CRNP [address] [place] [address] Health Maintenance Due Date Last Done Comments [...] as of this encounter Visit Diagnoses Diagnosis REGLA treated with BiPAP- Primary documented in this encounter Care Teams Senior Strategy Manager Relationship Specialty Start Date End Date Sin Benoit MD [address] [place] [address] PCP - General Family Medicine 01/27/20 documented as of this encounter
--- OUTSIDE RECORDS SUMMARY | 2024-08-13 20:39 | External Medical Summary | Summary of Care ---
Author Name Unknown Organization [facility] Address [address] [place] [address] Phone [phone] Care Team Providers Care Cans Vacuum Tester Name Role Phone Sin Benoit MD Primary Care Provider [phone] [phone] Reason for Visit * Reason Onset Date Comments FYI 04/02/2024 Encounter Details Date Type Department Care Team (Late st Contact Info) Description 04/02/2024 Telephone Family Practice [facility] [address] [place] [address] Sin Benoit MD [address] [place] [address] FYI Allergies No known active allergiesdocumented as of this encounter (statuses as of 05/15/2024) Medications Medication Sig Dispensed Refills Start Date End Date Status oxygen IN GASIndications:Zone Maintenance Technician franco hypoxemic respiratory failure (HCC),Post-polio syndrome,Restrictiv e [...] encounter Miscellaneous Notes * Telephone Encounter - Mariajose Mendoza LPN - 05/15/2024 1:07 PM EDT Ty returning call asking if we received a form via fax: this is regarding a Sitting evaluation form (sample for reference and then blank form) and master RX (read and review). I did not see that we have received it yet, had him fax again for Marly Kaba to fill out. * Telephone Encounter - Cherry Zhang OSA - 05/15/2024 1:06 PM EDT Reason for patient's call: requesting to speak to a nurse in regards to forms that were faxed over. Caller was transferred to [place] at the clinic. * Telephone Encounter - Esther Clemente OSA - 05/13/2024 4:21 PM EDT Ty from [employer] requesting an update on fax documentation for electric wheelchair for patient on 05/08/24. Please fill out the sitting evaluation form and the order request. Documentation to be review and sign by provider. Please fax over or email back. attention Ty Samano Or email: [email or web address] * Telephone Encounter - Rena Wetzel LPN - 05/07/2024 1:11 PM EDT Called and spoke with pts , correct phone number in chart * Telephone Encounter - Tatum Valdez OSA - 05/07/2024 10:01 AM EDT Reason for patient's call: Pt spouse calling regarding a telephone call they received on their homeline from the [employer], [employer]. Regarding Maynor Self, [employer] to come and visit the house. She is just concerned due to the call coming to their land line which they only have for back up; calls should be made to cell phone. [phone] She is requesting a return call to assure that this was a valid telephone call and not a spam. Thank you * Telephone Encounter - Rena Wetzel LPN - 05/06/2024 11:21 AM EDT Faxed additional forms requested, signed by PCP * Telephone Encounter - Shahla Robins OSA - 05/05/2024 11:57 AM EDT Sarahi from [employer] is stating they requested additional forms on 04/30/24. They have notreceived any response. They faxed They will refax the forms to [phone] * Telephone Encounter - Mariajose Mendoza LPN - 04/29/2024 9:13 AM EDT Faxed * Telephone Encounter - Marly Kaba CRNP - 04/25/2024 4:36 PM EDT Forms completed and given to Sraa Castillo, KIMMY, RADHA [facility] * Telephone Encounter - Rena Wetzel LPN - 04/25/2024 4:04 PM EDT Do you have forms requested for motility device? * Telephone Encounter - Davina Anderson OSA - 04/24/2024 9:15 AM EDT Nighat with [employer] calling to verify that patient kept with appt on 04/22 with Marly Kaba and if paperwork was able to be complete at that time Requesting office to fax completed forms back at [phone] * Telephone Encounter - Marly Kaba CRNP - 04/17/2024 3:05 PM EDT Noted Will address at appt on 04/22/2024 KIMMY Castillo, RADHA [facility] * Telephone Encounter - Patricia Cavazos OSA - 04/17/2024 2:05 PM EDT Reason for patient's call: Prysiclbetty states she needs to confirm with a nurse that forms were received and give 2-3 instructions. Caller was transferred to [place] at the clinic. * Telephone Encounter - Yris Hill LPN - 04/17/2024 2:05 PM EDT Danica calling from [employer], asking if the paperwork that was faxed [...] questions regarding the form: EXT: [phone] FAX: [phone] * Telephone Encounter - Isis Samuels OSA - 04/02/2024 12:30 PM EDT Carroll afternoon, V from [employer] called, stated pt call them requesting power [...] filedocumented as of this encounter Care Teams Cans Vacuum Tester Relationship Specialty Start Date End Date Sin Benoit MD [address] [place] [address] PCP - General Family Medicine 01/27/20 documented as of this encounter
--- OUTSIDE RECORDS SUMMARY | 2024-08-13 20:39 | External Medical Summary | Summary of Care ---
Author Name Unknown Organization [facility] Address [address] [place] [address] Phone [phone] Care Team Providers Care Staff Psychiatrist Name Role Phone Sin Benoit MD Primary Care Provider [phone] [phone] Reason for Visit * Reason Onset Date Comments Durable Medical Equipment 06/06/2024 Encounter Details Date Type Department Care Team (Late st Contact Info) Description 06/06/2024 Telephone Sleep Disorders Ctr [facility] [address] [place] [address] Services, Scheduling [address] [place] [address] Durable Medical Equipment Allergies No known active allergiesdocumented as of this encounter (statuses as of 06/10/2024) Medications Medication Sig Dispensed Refills Start Date End Date Status oxygen IN GASIndications:Pmo Analyst franco hypoxemic respiratory failure (HCC),Post-polio syndrome,Restrictiv e [...] mRNA, LNP-s, No Pre serve, 2-Dose Series ([employer]) 12/09/2020,11/18/2020 H1N1 2009 Influenza, IM 02/02/2010 Pneumococcal [...] as of this encounter Miscellaneous Notes * Addendum Note - Leny Woodruff CRNP [...] order to order a new humidifier from [employer] for his machine. He is asking if a prescription can please be sent to his home since his upcoming appointment is a video visit. Please advise. documented in this encounter Plan of Treatment Upcoming Encounters Date Type Department Care Team (Late st Contact Info) Description 06/13/2024 10:00 AM EDT Telemedicine Sleep Disorders Ctr [facility] [address] [place] [phone] Leny Woodruff CRNP [address] [place] [address] Health Maintenance Due Date Last Done Comments [...] Primary documented in this encounter Care Teams Staff Psychiatrist Relationship Specialty Start Date End Date Sin Benoit MD [address] [place] [address] PCP - General Family Medicine 01/27/20 documented as of this encounter
--- OUTSIDE RECORDS SUMMARY | 2024-08-13 20:39 | External Medical Summary | Summary of Care ---
Author Name Unknown Organization [facility] Address [address] [place] [address] Phone [phone] Care Team Providers Care Development Mgr Name Role Phone Sin Benoit MD Primary Care Provider +1 [phone] Reason for Visit * Reason Onset Date Comments FYI 04/02/2024 Encounter Details Date Type Department Care Team (Late st Contact Info) Description 04/02/2024 Telephone Family Practice [facility] [address] [place] [address] Sin Benoit MD [address] [place] [address] FYI Allergies No known active allergiesdocumented as of this encounter (statuses as of 05/06/2024) Medications Medication Sig Dispensed Refills Start Date End Date Status oxygen IN GASIndications:Signal Worker franco hypoxemic respiratory failure (HCC),Post-polio syndrome,Restrictiv e [...] as of this encounter (statuses as of 05/06/2024) Active Problems Problem Noted Date Diagnosed Date Debility 04/22/2024 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/28/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 Oxygen dependent 02/17/2016 Restrictive lung disease 03/05/2014 Wheelchair bound 02/27/2013 REGLA (obstructive sleep apnea) 12/24/2001 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 HTN, goal below 130/80 Paraplegia documented as of this encounter (statuses as of 05/06/2024) Resolved Problems Problem Noted Date Diagnosed Date Resolved Date Nocturnal hypoxemia 02/25/2021 02/13/20 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/2017 01/27/2020 Dyslipidemia 03/05/2014 01/27/2020 Vitamin D deficiency 03/05/2014 020 HTN, goal below 140/90 02/27/200101/26 DIVERTICULITIS OF COLON 10/10/200012/31 POLIO OSTEOPATHY-MULT 2019 documented as of this encounter (statuses as of 05/06/2024) Immunizations Name Administration Dates Next Due COVID-19 [...] encounter Miscellaneous Notes * Telephone Encounter - Rena Wetzel LPN - 05/06/2024 11:21 AM EDT Faxed additional forms requested, signed by PCP * Telephone Encounter - Shahla Robins OSA - 05/05/2024 11:57 AM EDT Sarahi from [employer] is stating they requested additional forms on 04/30/24. They have notreceived any response. They faxed They will refax the forms to [phone] * Telephone Encounter - Mariajose Mendoza LPN - 04/29/2024 9:13 AM EDT Faxed * Telephone Encounter - Marly Kaba CRNP - 04/25/2024 4:36 PM EDT Forms completed and given to Sara CastilloKIMMY CRNP [facility] * Telephone Encounter - Rena Wetzel LPN - 04/25/2024 4:04 PM EDT Do you have forms requested for motility device? * Telephone Encounter - Davina Anderson OSA - 04/24/2024 9:15 AM EDT Nighat with [employer] calling to verify that patient kept with appt on 04/22 with Marly Kaba and if paperwork was able to be complete at that time Requesting office to fax completed forms back at [phone] * Telephone Encounter - Marly Kaba CRNP - 04/17/2024 3:05 PM EDT [facility] KIMMY Castillo, RADHA [facility] * Telephone Encounter - Patricia Cavazos OSA - 04/17/2024 2:05 PM EDT Reason for patient's call: [employer] states she needs to confirm with a nurse that forms were received and give 2-3 instructions. Caller was transferred to Yris at the clinic. * Telephone Encounter - Yris Hill LPN - 04/17/2024 2:05 PM EDT Danica calling from [employer], asking if the paperwork that was faxed [...] questions regarding the form: EXT: [phone] FAX: [phone] * Telephone Encounter - Isis Samuels OSA - 04/02/2024 12:30 PM EDT Good afternoon, V from [employer] called, stated pt call them requesting power mobility device, per V Pt's need mobility evaluation from PCP, Pt have a future appt. For 04/22. Please advise. Thank you documented in this encounter Plan of Treatment Health Maintenance Due Date Last Done Comments Albumin/Creatinine Ratio 1963 Hepatitis C Screening 1963 Zoster Vaccines (2 of 3) 06/11/2013 04/16/2013 [...] filedocumented as of this encounter Care Teams Development Mgr Relationship Specialty Start Date End Date Sin Benoit MD [address] [place] [address] PCP - General Family Medicine 01/27/20 documented as of this encounter
--- OUTSIDE RECORDS SUMMARY | 2024-08-13 20:39 | External Medical Summary | Summary of Care ---
Author Name Unknown Organization [facility] Address [address] [place] [address] Phone [phone] Care Team Providers Care Etl Informatica Developer Name Role Phone Sin Benoit MD Primary Care Provider [phone] [phone] Reason for Visit * Reason Onset Date Comments FYI 04/02/2024 Encounter Details Date Type Department Care Team (Late st Contact Info) Description 04/02/2024 Telephone Family Practice [facility] [address] [place] [address] Sin Beonit MD [address] [place] [address] FYI Allergies No known active allergiesdocumented as of this encounter (statuses as of 05/07/2024) Medications Medication Sig Dispensed Refills Start Date End Date Status oxygen IN GASIndications:Hardware Test Engineer franco hypoxemic respiratory failure (HCC),Post-polio syndrome,Restrictiv e [...] they received on their homeline from the [employer], [employer]. Regarding Maynor Self, [employer] to come and visit the house. She is just concerned due to the call coming to their land line which they only have for back up; calls should be made to cell phone. [phone] She is requesting a return call to assure that this was a valid telephone call and not a spam. Thank you * Telephone Encounter - Rena Wetzel LPN - 05/06/2024 11:21 AM EDT Faxed additional forms requested, signed by PCP * Telephone Encounter - Shahla Robins OSA - 05/05/2024 11:57 AM EDT Sarahi from [employer] is stating they requested additional forms on 04/30/24. They have notreceived any response. They faxed They will refax the forms to [phone] * Telephone Encounter - Mariajose Mendoza LPN [...] - 04/24/2024 9:15 AM EDT Nighat with [employer] calling to verify that patient kept with appt on 04/22 with Marly Kaba and if paperwork was able to be complete at that time Requesting office to fax completed forms back at [phone] * Telephone Encounter - Marly Kaba CRNP - 04/17/2024 3:05 PM EDT Noted Will address at appt on 04/22/2024 Anna, KIMMY, RADHA [facility] * Telephone Encounter - Patricia Cavazos OSA - 04/17/2024 2:05 PM EDT Reason for patient's call: [employer] states she needs to confirm with a nurse that forms were received and give 2-3 instructions. Caller was transferred to Yris at the clinic. * Telephone Encounter - Yris Hill LPN - 04/17/2024 2:05 PM EDT Danica calling from [employer], asking if the paperwork that was faxed [...] questions regarding the form: EXT: [phone] FAX: [phone] * Telephone Encounter - Isis Samuels OSA - 04/02/2024 12:30 PM EDT Carroll green V from [employer] called, stated pt call them requesting power [...] filedocumented as of this encounter Care Teams Etl Informatica Developer Relationship Specialty Start Date End Date Sin Benoit MD [address] [place] [address] PCP - General Family Medicine 01/27/20 documented as of this encounter
--- OUTSIDE RECORDS SUMMARY | 2024-08-13 20:39 | External Medical Summary | Summary of Care ---
Author Name Unknown Organization [facility] Address [address] [place] [address] Phone [phone] Care Team Providers Care Test Engineer Name Role Phone Sin Benoit MD Primary Care Provider [phone] [phone] Encounter Details Date Type Department Care Team (Late st Contact Info) Description 06/13/2024 10:00 AM EDT Telemedicine Sleep Disorders [facility] [address] [place] [address] Sera Degroot CRNP [address] [facility] [place] [address] REGLA treated with BiPAP*; Chronic hypoxemic respiratory failure (HCC); Restrictive lung disease; Post-polio syndrome Allergies No known active allergiesdocumented as of this encounter (statuses as of 06/13/2024) Medications Medication Sig Dispensed Refills Start Date End Date Status oxygen IN GASIndications:Hearing Aid Dispenser franco hypoxemic respiratory failure (HCC),Post-polio syndrome,Restrictiv e [...] as of this encounter (statuses as of 06/13/2024) Active Problems Problem Noted Date Diagnosed Date Debility 04/22/2024 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/28/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 Oxygen dependent 02/17/2016 Restrictive lung disease 03/05/2014 Wheelchair bound 02/27/2013 REGLA (obstructive sleep apnea) 12/24/2001 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 HTN, goal below 130/80 Paraplegia documented as of this encounter (statuses as of 06/13/2024) Resolved Problems Problem Noted Date Diagnosed Date Resolved Date Nocturnal hypoxemia 02/25/2021 02/13/20 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/2017 01/27/2020 Dyslipidemia 03/05/2014 01/27/2020 Vitamin D deficiency 03/05/2014 020 HTN, goal below 140/90 02/27/200101/26 DIVERTICULITIS OF COLON 10/10/200012/31 POLIO OSTEOPATHY-MULT 2019 documented as of this encounter (statuses as of 06/13/2024) Immunizations Name Administration Dates Next Due COVID-19 mRNA, LNP-s, No Pre serve, 2-Dose Series ([employer]) 12/09/2020,11/18/2020 H1N1 2009 Influenza, IM 02/02/2010 Pneumococcal [...] as of this encounter Progress Notes * Sera Degroot CRNP - 06/13/2024 10:00 AM EDT Patient location: HOME. I was in a hospital or clinic location. After connecting through televideo,patient was verified with two unique identifiers. Patient (or authorized legal workforce services representative) was then informed that this was a Telemedicine visit and being conducted confidentially over secure lines. Methods to assure confidentiality were taken. Patient acknowledged consent and understanding of pr ivacy and security of the Telemedicine visit. The patient agreed to participate. [facility] Ortega Coronel is a 78 year old male with history of post-polio syndrome, paraplegia, restrictive lung disease, chronic respiratory failure and sleep apnea with treatment emergent central sleep apnea. 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 Continues use of nasal BPAP ST with oxygen bled through. Satisfied with his sleep quality. Denies daytime sleepiness. Compliance Data: 30 day report ending 06/10/2024 % total days used: 100 % days used > 4 hours: 100 Average hours per day used: 10 hours 16 mins Large leak: 35% rAHI: 12.9 (11.8 hypopnea) Average tidal volume: 405 ml Average minute ventilation: 5 Average breath rate: 12 (low 11) Average percent patient triggered breaths: 79.6% Equipment: DME Provider: [employer] Device: OnApp BPAP ST Settin/12 cmH20 BUR 8 Interface Type: nasal with chin strap Humidifier: used Cleaning: by hand routinely Oxygen: 2.5 LPM (purchased or from [employer]) EPWORTH SLEEPINESS SCALE: How likely are you to doze off or fall asleep in the following situations, in contrast to feeling just tired?. This refers to your usual way of life in recent times. Even if you have not done some ofthese things recently, try to work out how they would have affected you. Using the following scale,lower elwha the most appropriate number in the chart for each situation. 0 = would never doze 1 = slight chance of dozing 2 = moderate chance of dozing 3 = high chance of dozing Sitting and reading - 0 Watching TV - 0 Sitting, inactive in a public place - 0 As a passenger in a car for an hour without a break - 0 Lying down to rest in the afternoon when circumstance permit - 3 Sitting and talking to someone - 0 Sitting quietly after a lunch without alcohol - 0 In a car, while stopped for a few minutes in the traffic - 0 Total - 12/22 Problem List: Patient Active Problem List Diagnosis Colostomy status (HCC) REGLA (obstructive sleep apnea) Wheelchair bound Restrictive lung disease Oxygen dependent HTN, goal below 130/80 Paraplegia (HCC) Post-polio syndrome Chronic hypoxemic respiratory failure (HCC) Debility Current Medications: Current Outpatient Medications Medication Sig Dispense Refill Lisinopril 20 MG Oral Tablet (Prinivil) TAKE 1 TABLET BY MOUTH EVERY DAY 90 Tablet 3 Atenolol 25 MG Oral Tablet (Tenormin) Take 1 Tablet by mouth in the morning. 90 Tablet 3 BiPAP every night at bedtime. Triamcinolone Acetonide 0.1 % External Cream (Aristocort) Apply topically to affected area 2 times a day. To affected area. (Patient not taking: Reported on 01/31/2024) 80 g 5 oxygen IN GAS 2.LPM with exertion and 2.5 LPM bled through BIPAP with sleep. Needs portable tanks and stationary concentrator. 1 Each 0 No current facility-administered medications for this visit. Physical Exam: Constitutional: Alert, oriented and in no acute distress Neuro: Fluent speech Psych: Appropriate Component Latest Ref Rng 04/15/2021 07/28/2022 01/21/2024 CO2 22 - 32 mmol/L 33 (H) 36 (H) 34 (H) Legend: (H) High Assessment & Plan: Encounter Diagnoses Name Primary? REGLA treated with BiPAP Yes Chronic hypoxemic respiratory failure (HCC) Restrictive lung disease Post-polio syndrome Sleep apnea suboptimally treated with mild residual apnea (rAHI 12.9) and large leak reported at 35% of the time PAP is worn. Prior overnight oximetry showed desats to 77% during times of leak while on BPAP with 2.5 LPM oxygen. Mr. Coronel notes ongoing benefit with PAP treatment and is very satisfied with his sleep quality. He has declined any further testing at this time. Continued use of BPAP ST with oxygen as prescribed. RADHA [facility] I spent a total of 30-39 minutes (exact time 39 mins) on the date of service in preparation, delivery, and documentation of the care provided to Ortega Coronel excluding any time spent in the performance of separately billed services or time spent by another provider/QHP. 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
--- OUTSIDE RECORDS SUMMARY | 2024-08-13 20:39 | External Medical Summary | Summary of Care ---
Author Name Unknown Organization [facility] Address [address] [place] [address] Phone [phone] Care Team Providers Care Ground Source Heat Pump Technician Name Role Phone Red De La Torre MD Primary Care Provider [phone] [phone] Reason for Visit * Reason Comments eRx-Medication Refill Encounter Details Date Type Department Care Team (Late st Contact Info) Description 07/10/2024 Refill Family Practice [facility] [address] [place] [address] Red De La Torre MD [address] [facility] [place] [address] Allergies No known active allergiesdocumented as of this encounter (statuses as of 07/11/2024) Medications Medication Sig Dispensed Refills Start Date End Date Status oxygen IN GASIndications:Ch ronic hypoxemic respiratory failure (HCC),Post-polio syndrome,Restrict allyson lung disease,Nocturnal hypoxemia 2.LPM with exertion and 2.5 LPM bled through BIPAP with sleep. Needs portable tanks and stationary concentrator. 1 Each 02/25/2021 Active Triamcinolone Acetonide 0.1 % External Cream (Aristocort)Indic ations:Rash and nonspecific skin eruption Apply topically to affected area 2 times a day. To affected area. 80 g 5 09/01/2021 Active Additional Information Patient not taking.Reported on 01/31/2024 BiPAP every night at bedtime. Active Lisinopril 20 MG Oral Tablet (Prinivil)Indicat ions:HTN, goal below 140/90 TAKE 1 TABLET BY MOUTH EVERY DAY 90 Tablet 3 01/15/2024 Active Atenolol 25 MG Oral Tablet (Tenormin) TAKE 1 TABLET BY MOUTH EVERY DAY IN THE MORNING 90 Tablet 3 07/11/2024 Active Atenolol 25 MG Oral Tablet (Tenormin) Take 1 Tablet by mouth in the morning. 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 HTN, goal below 130/80 Paraplegia documented as of this encounter (statuses as of 07/11/2024) Resolved Problems Problem Noted Date Diagnosed Date Resolved Date Nocturnal hypoxemia 02/25/2021 02/13/20 23 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/2017 01/27/2020 Dyslipidemia 03/05/2014 01/27/2020 Vitamin D deficiency 03/05/2014 020 HTN, goal below 140/90 02/27/200101/26 DIVERTICULITIS OF COLON 10/10/200012/31 POLIO OSTEOPATHY-MULT 2019 documented as of this encounter (statuses as of 07/11/2024) Immunizations Name Administration Dates Next Due COVID-19 mRNA, LNP-s, No Pre serve, 2-Dose Series ([employer]) 12/09/2020,11/18/2020 H1N1 2009 Influenza, IM 02/02/2010 Pneumococcal [...] encounter Miscellaneous Notes * Telephone Encounter - Sung Guthrie RPh - 07/11/2024 10:46 AM EDT Signed Prescriptions: Disp Refills Atenolol 25 MG Oral Tablet (Tenormin) 90 Tab*3 Sig: TAKE 1 TABLET BY MOUTH EVERY DAY IN THE MORNINGAuthorizing Provider: RED DE LA TORRE User: SUNG GUTHRIE documented in this encounter Plan of Treatment [...] filedocumented as of this encounter Care Teams Ground Source Heat Pump Technician Relationship Specialty Start Date End Date Red De La Torre MD [address] [place] [address] PCP - General Family Medicine 01/27/20 documented as of this encounter
--- OUTSIDE RECORDS SUMMARY | 2024-08-13 20:39 | External Medical Summary | Summary of Care ---
Author Name Unknown Organization [facility] Address [address] [place] [address] Phone [phone] Care Team Providers Care Strategic Sourcing Specialist Name Role Phone Sin Benoit MD Primary Care Provider [phone] [phone] Reason for Visit * Reason Onset Date Comments FYI 04/02/2024 Encounter Details Date Type Department Care Team (Late st Contact Info) Description 04/02/[address] 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 Oxygen dependent 02/17/2016 Restrictive lung disease 03/05/2014 Wheelchair bound 02/27/2013 REGLA (obstructive sleep apnea) 12/24/2001 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 HTN, goal below 130/80 Paraplegia documented as of this encounter (statuses as of 05/13/2024) Resolved Problems Problem Noted Date Diagnosed Date Resolved Date Nocturnal hypoxemia 02/25/2021 02/13/20 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/2017 01/27/2020 Dyslipidemia 03/05/2014 01/27/2020 Vitamin D deficiency 03/05/2014 020 HTN, goal below 140/90 02/27/200101/26 DIVERTICULITIS OF COLON 10/10/200012/31 POLIO OSTEOPATHY-MULT 2019 documented as of this encounter (statuses as of 05/13/2024) Immunizations Name Administration Dates Next Due COVID-19 [...] encounter Miscellaneous Notes * Telephone Encounter - Esther Clemente OSA - 05/13/2024 4:21 PM EDT Ty from [employer] requesting an update on fax documentation for electric wheelchair for patient on 05/08/24. Please fill out the sitting evaluation form and the order request. Documentation to be review and sign by provider. Please fax over or email back. attention Ty Samano Or email: [email or web address] * Telephone Encounter - Rena Wetzel LPN - 05/07/2024 1:11 PM EDT Called and spoke with pts , correct phone number in chart * Telephone Encounter - Tatum Valdez OSA - 05/07/2024 10:01 AM EDT Reason for patient's call: Pt spouse calling regarding a telephone call they received on their homeline from the [employer]. Regarding Maynor Self, [employer] to come and visit the house. She is just concerned due to the call coming to their land line which they only have for back up; calls should be made to cell phone. [phone] She is requesting a return call to assure that this was a valid telephone call and not a spam. Thank you * Telephone Encounter - Rena Wetzel LPN - 05/06/2024 11:21 AM EDT Faxed additional forms requested, signed by PCP * Telephone Encounter - Shahla Robins OSA - 05/05/2024 11:57 AM EDT Sarahi from [employer] is stating they requested additional forms on 04/30/24. They have notreceived any response. They faxed They will refax the forms to [phone] * Telephone Encounter - Mariajose Mendoza LPN - 04/29/2024 9:13 AM EDT Faxed * Telephone Encounter - Marly Kaba CRNP - 04/25/2024 4:36 PM EDT Forms completed and given to Sara Castillo, MSN, RADHA [facility] * Telephone Encounter - Rena Wetzel LPN - 04/25/2024 4:04 PM EDT Do you have forms requested for motility device? * Telephone Encounter - aDvina Anderson OSA - 04/24/2024 9:15 AM EDT Nighat with [employer] calling to verify that patient kept with appt on 04/22 with Marly Kaba and if paperwork was able to be complete at that time Requesting office to fax completed forms back at [phone] * Telephone Encounter - Marly Kaba CRNP - 04/17/2024 3:05 PM EDT Noted Will address at appt on 04/22/2024 Anna, KIMMY, RADHA [facility] * Telephone Encounter - Patricia Cavazos OSA - 04/17/2024 2:05 PM EDT Reason for patient's call: [employer] states she needs to confirm with a nurse that forms were received and give 2-3 instructions. Caller was transferred to Yris at the clinic. * Telephone Encounter - Yris Hill LPN - 04/17/2024 2:05 PM EDT Danica calling from [employer], asking if the paperwork that was faxed [...] questions regarding the form: EXT: 208 FAX: [phone] * Telephone Encounter - Isis Samuels OSA - 04/02/2024 12:30 PM EDT Good afternoon, V from [employer] called, stated pt call them requesting power [...] filedocumented as of this encounter Care Teams Strategic Sourcing Specialist Relationship Specialty Start Date End Date Sin Benoit MD [address] [place] [address] PCP - General Family Medicine 01/27/20 documented as of this encounter
--- OUTSIDE RECORDS SUMMARY | 2024-08-13 20:39 | External Medical Summary | Summary of Care ---
Author Name Unknown Organization [facility] Address [address] [place] [address] Phone [phone] Care Team Providers Care Accountant Helper Name Role Phone Sin Benoit MD Primary Care Provider [phone] Reason for Visit * Reason Onset Date Comments FYI 04/02/2024 Encounter Details Date Type Department Care Team (Late st Contact Info) Description 04/02/2024 Telephone Family Practice [facility] [address] [place] [address] Sin Benoit MD [address] [place] [address] FYI Allergies No known active allergiesdocumented as of this encounter (statuses as of 05/15/2024) Medications Medication Sig Dispensed Refills Start Date End Date Status oxygen IN GASIndications:Export Packer franco hypoxemic respiratory failure (HCC),Post-polio syndrome,Restrictiv e [...] - 05/13/2024 4:21 PM EDT Ty from [employer] requesting an update on fax documentation for electric wheelchair for patient on 05/08/24. Please fill out the sitting evaluation form and the order request. Documentation to be review and sign by provider. Please fax over or email back. attention Ty Samano Or email: [employer] * Telephone Encounter - Rena Wetzel LPN - 05/07/2024 1:11 PM EDT Called and spoke with pts , correct phone number in chart * Telephone Encounter - Tatum Valdez OSA - 05/07/2024 10:01 AM EDT Reason for patient's call: Pt spouse calling regarding a telephone call they received on their homeline from the [employer]. Regarding Maynor Self, [employer] to come and visit the house. She is just concerned due to the call coming to their land line which they only have for back up; calls should be made to cell phone. [phone] She is requesting a return call to assure that this was a valid telephone call and not a spam. Thank you * Telephone Encounter - Rena Wetzel LPN - 05/06/2024 11:21 AM EDT Faxed additional forms requested, signed by PCP * Telephone Encounter - Shahla Robins OSA - 05/05/2024 11:57 AM EDT Sarahi from [employer] is stating they requested additional forms on 04/30/24. They have notreceived any response. They faxed They will refax the forms to [phone] * Telephone Encounter - Mariajose Mendoza LPN - 04/29/2024 9:13 AM EDT Faxed * Telephone Encounter - Marly Kaba CRNP - 04/25/2024 4:36 PM EDT Forms completed and given to Sara Castillo, MSN, RADHA [facility] * Telephone Encounter - Rena Wetzel LPN - 04/25/2024 4:04 PM EDT Do you have forms requested for motility device? * Telephone Encounter - Davina Anderson OSA - 04/24/2024 9:15 AM EDT Nighat with [employer] calling to verify that patient kept with appt on 04/22 with Marly Kaba and if paperwork was able to be complete at that time Requesting office to fax completed forms back at [phone] * Telephone Encounter - Marly Kaba CRNP - 04/17/2024 3:05 PM EDT Noted Will address at appt on 04/22/2024 Anna, KIMMY, RADHA [facility] * Telephone Encounter - Patricia Cavazos OSA - 04/17/2024 2:05 PM EDT Reason for patient's call: [employer] states she needs to confirm with a nurse that forms were received and give 2-3 instructions. Caller was transferred to Yris at the clinic. * Telephone Encounter - Yris Hill LPN - 04/17/2024 2:05 PM EDT Danica calling from [employer], asking if the paperwork that was faxed [...] questions regarding the form: EXT: [phone] FAX: [phone] * Telephone Encounter - Isis Samuels OSA - 04/02/2024 12:30 PM EDT Good afternoon, V from [employer] called, stated pt call them requesting power [...] filedocumented as of this encounter Care Teams Accountant Helper Relationship Specialty Start Date End Date Sin Benoit MD [address] [place] [address] PCP - General Family Medicine 01/27/20 documented as of this encounter
--- OUTSIDE RECORDS SUMMARY | 2024-08-13 20:39 | External Medical Summary | Summary of Care ---
Author Name Unknown Organization [facility] Address [address] [place] [address] Phone [phone] Care Team Providers Care Designer/Writer Name Role Phone Sin Benoit MD Primary Care Provider [phone] Reason for Visit * Reason Onset Date Comments Durable Medical Equipment 06/06/2024 Encounter Details Date Type Department Care Team (Late st Contact Info) Description 06/06/2024 Telephone Sleep Disorders [facility]tr [facility] [address] [place] [address] Services, Scheduling [address] [place] [address] Durable Medical Equipment Allergies No known active allergiesdocumented as of this encounter (statuses as of 06/09/2024) Medications Medication Sig Dispensed Refills Start Date End Date Status oxygen IN GASIndications:Legislative Assistant franco hypoxemic respiratory failure (HCC),Post-polio syndrome,Restrictiv e [...] as of this encounter (statuses as of 06/09/2024) Active Problems Problem Noted Date Diagnosed Date Debility 04/22/2024 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/28/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 Oxygen dependent 02/17/2016 Restrictive lung disease 03/05/2014 Wheelchair bound 02/27/2013 REGLA (obstructive sleep apnea) 12/24/2001 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 HTN, goal below 130/80 Paraplegia documented as of this encounter (statuses as of 06/09/2024) Resolved Problems Problem Noted Date Diagnosed Date Resolved Date Nocturnal hypoxemia 02/25/2021 02/13/20 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/2017 01/27/2020 Dyslipidemia 03/05/2014 01/27/2020 Vitamin D deficiency 03/05/2014 020 HTN, goal below 140/90 02/27/200101/26 DIVERTICULITIS OF COLON 10/10/200012/31 POLIO OSTEOPATHY-MULT 2019 documented as of this encounter (statuses as of 06/09/2024) Immunizations Name Administration Dates Next Due COVID-19 mRNA, LNP-s, No Pre serve, 2-Dose Series (Pearescope) 12/09/2020,11/18/2020 H1N1 2009 Influenza, IM 02/02/2010 Pneumococcal [...] order to order a new humidifier from [employer] for his machine. He is asking if a prescription can please be sent to his home since his upcoming appointment is a video visit. Please advise. documented in this encounter Plan of Treatment Upcoming Encounters Date Type Department Care Team (Late st Contact Info) Description 06/13/2024 10:00 AM EDT Telemedicine Sleep Disorders [facility]tr [facility] [address] [facility] [place] [id number] Sera Degroot CRNP [address] [facility] [place] [address] Health Maintenance Due Date Last Done Comments [...] filedocumented as of this encounter Care Teams Designer/Writer Relationship Specialty Start Date End Date Sin Benoit MD [address] [facility] [place] [address] PCP - General Family Medicine 01/27/20 documented as of this encounter
--- OUTSIDE RECORDS SUMMARY | 2024-08-13 20:40 | External Medical Summary | Summary of Care ---
Author Name Unknown Organization [facility] Address [address] [place] [address] Phone [phone] Care Team Providers Care Obstetric Assistant Name Role Phone Sin Benoit MD Primary Care Provider [phone] Reason for Visit * Reason Onset Date Comments FYI 04/02/2024 Encounter Details Date Type Department Care Team (Late st Contact Info) Description 04/02/2024 Telephone Family Practice [facility] [address] [place] [address] Sin Benoit MD [address] [place] [address] FYI Allergies No known active allergiesdocumented as of this encounter (statuses as of 04/25/2024) Medications Medication Sig Dispensed Refills Start Date End Date Status oxygen IN GASIndications:Courseware Developer franco hypoxemic respiratory failure (HCC),Post-polio syndrome,Restrictiv e [...] as of this encounter (statuses as of 04/25/2024) Active Problems Problem Noted Date Diagnosed Date Debility 04/22/2024 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/28/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 Oxygen dependent 02/17/2016 Restrictive lung disease 03/05/2014 Wheelchair bound 02/27/2013 REGLA (obstructive sleep apnea) 12/24/2001 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 HTN, goal below 130/80 Paraplegia documented as of this encounter (statuses as of 04/25/2024) Resolved Problems Problem Noted Date Diagnosed Date Resolved Date Nocturnal hypoxemia 02/25/2021 02/13/20 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/2017 01/27/2020 Dyslipidemia 03/05/2014 01/27/2020 Vitamin D deficiency 03/05/2014 020 HTN, goal below 140/90 02/27/200101/26 DIVERTICULITIS OF COLON 10/10/200012/31 POLIO OSTEOPATHY-MULT 2019 documented as of this encounter (statuses as of 04/25/2024) Immunizations Name Administration Dates Next Due COVID-19 [...] - 04/24/2024 9:15 AM EDT Nighat with [employer] calling to verify that patient kept with appt on 04/22 with Marly Kaba and if paperwork was able to be complete at that time Requesting office to fax completed forms back at [phone] * Telephone Encounter - Marly Kaba CRNP - 04/17/2024 3:05 PM EDT Noted Will address at appt on 04/22/2024 Anna, KIMMY, RADHA [facility] * Telephone Encounter - Patricia Cavazos OSA - 04/17/2024 2:05 PM EDT Reason for patient's call: Edi states she needs to confirm with a nurse that forms were received and give 2-3 instructions. Caller was transferred to Yris at the clinic. * Telephone Encounter - Yris Hill LPN - 04/17/2024 2:05 PM EDT Danica calling from [employer], asking if the paperwork that was faxed [...] questions regarding the form: EXT: [phone] FAX: [phone] * Telephone Encounter - Isis Samuels OSA - 04/02/2024 12:30 PM EDT Good afternoon, V from [employer] called, stated pt call them [...] filedocumented as of this encounter Care Teams Obstetric Assistant Relationship Specialty Start Date End Date Sin Benoit MD [address] [place] [address] PCP - General Family Medicine 01/27/20 documented as of this encounter
--- OUTSIDE RECORDS SUMMARY | 2024-08-13 20:40 | External Medical Summary | Summary of Care ---
Author Name Unknown Organization [facility] Address [address] [place] [address] Phone [phone] Care Team Providers Care Cleaner Carpet And Upholstery Name Role Phone Sin Benoit MD Primary Care Provider [phone] Reason for Visit * Reason Onset Date Comments FYI 04/02/2024 Encounter Details Date Type Department Care Team (Late st Contact Info) Description 04/02/[address] 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 Oxygen dependent 02/17/2016 Restrictive lung disease 03/05/2014 Wheelchair bound 02/27/2013 REGLA (obstructive sleep apnea) 12/24/2001 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 HTN, goal below 130/80 Paraplegia documented as of this encounter (statuses as of 05/05/2024) Resolved Problems Problem Noted Date Diagnosed Date Resolved Date Nocturnal hypoxemia 02/25/2021 02/13/20 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/2017 01/27/2020 Dyslipidemia 03/05/2014 01/27/2020 Vitamin D deficiency 03/05/2014 020 HTN, goal below 140/90 02/27/200101/26 DIVERTICULITIS OF COLON 10/10/200012/31 POLIO OSTEOPATHY-MULT 2019 documented as of this encounter (statuses as of 05/05/2024) Immunizations Name Administration Dates Next Due COVID-19 [...] encounter Miscellaneous Notes * Telephone Encounter - Shahla Robins OSA - 05/05/2024 11:57 AM EDT Sarahi from [employer] is stating they requested additional forms on 04/30/24. They have notreceived any response. They faxed They will refax the forms to [phone] * Telephone Encounter - Mariajose Mendoza LPN - 04/29/2024 9:13 AM EDT Faxed * Telephone Encounter - Marly Kaba CRNP - 04/25/2024 4:36 PM EDT Forms completed and given to Sara Castillo, MSN, RADHA [facility] * Telephone Encounter - Renaldo-Rena Silva LPN - 04/25/2024 4:04 PM EDT Do you have forms requested for motility device? * Telephone Encounter - Davina Anderson OSA - 04/24/2024 9:15 AM EDT Nighat with [employer] calling to verify that patient kept with appt on 04/22 with Marly Kaba and if paperwork was able to be complete at that time Requesting office to fax completed forms back at [phone] * Telephone Encounter - Marly Kaba CRNP - 04/17/2024 3:05 PM EDT Noted Will address at appt on 04/22/2024 Anna, KIMMY, RADHA [facility] * Telephone Encounter - Patricia Cavazos OSA - 04/17/2024 2:05 PM EDT Reason for patient's call: Edi states she needs to confirm with a nurse that forms were received and give 2-3 instructions. Caller was transferred to Yris at the clinic. * Telephone Encounter - Yris Hill LPN - 04/17/2024 2:05 PM EDT Danica calling from [employer], asking if the paperwork that was faxed [...] questions regarding the form: EXT: [id number] FAX: [phone] * Telephone Encounter - Isis Samuels OSA - 04/02/2024 12:30 PM EDT Good afternoon, V from [employer] called, stated pt call them requesting [...] 10/01/1999 Depression Screening 05/10/2019 05/10/2018 COVID-19 Vaccine (2022- season) 2023 07/12/2023, 07/06/2021, 12/09/2020, Additional history [...] filedocumented as of this encounter Care Teams Cleaner Carpet And Upholstery Relationship Specialty Start Date End Date Sin Benoit MD [address] [place] [address] PCP - General Family Medicine 01/27/20 documented as of this encounter
--- OUTSIDE RECORDS SUMMARY | 2024-08-13 20:40 | External Medical Summary | Summary of Care ---
Author Name Unknown Organization [facility] Address [address] [place] [address] Phone [phone] Care Team Providers Care Purse Seining Hand Name Role Phone Sin Benoit MD Primary Care Provider [phone] Reason for Referral * Evaluate & Treat - Unlimited Visits (Within 30 days (routine)) - Authorized Specialty Diagnoses / Procedures Referred By Gordon vee Referred To Contact Physical Therapy / Physical Medicine And Rehab Diagnoses Paraplegia (HCC) Debility Marly Kaba CRNP [address] [place] [address] Referral ID Status Reason Start Date Expiration Date Visits Requested Visits Authorized [id number] Authorized Specialty Services Required 04/22/2024 999 999 Question Answer Referral Priority Within 30 days (routine) Where should this appointment be scheduled? [facility] Comments PLEASE EVALUATE FOR POWER MOBILITY DEVICE Reason for Visit * Reason Comments Follow Up Encounter Details Date Type Department Care Team (Late st Contact Info) Description 04/22/2024 4:00 PM EDT Telemedicine Family Practice [facility] [address] [place] [address] Marly Kaba CRNP [address] [place] [address] Paraplegia (HCC)*; Debility; Chronic hypoxemic respiratory failure (HCC); Restrictive lung disease Allergies No known active allergiesdocumented as of this encounter (statuses as of 04/22/2024) Medications Medication Sig Dispensed Refills Start Date End Date Status oxygen IN GASIndications:Biostatistics Professor franco hypoxemic respiratory failure (HCC),Post-polio syndrome,Restrictiv [...] as of this encounter (statuses as of 04/22/2024) Active Problems Problem Noted Date Diagnosed Date Debility 04/22/2024 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/28/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 Oxygen dependent 02/17/2016 Restrictive lung disease 03/05/2014 Wheelchair bound 02/27/2013 REGLA (obstructive sleep apnea) 12/24/2001 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 HTN, goal below 130/80 Paraplegia documented as of this encounter (statuses as of 04/22/2024) Resolved Problems Problem Noted Date Diagnosed Date Resolved Date Nocturnal hypoxemia 02/25/2021 02/13/20 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/2017 01/27/2020 Dyslipidemia 03/05/2014 01/27/2020 Vitamin D deficiency 03/05/2014 020 HTN, goal below 140/90 02/27/200101/26 DIVERTICULITIS OF COLON 10/10/200012/31 POLIO OSTEOPATHY-MULT 2019 documented as of this encounter (statuses as of 04/22/2024) Immunizations Name Administration Dates Next Due COVID-19 mRNA, LNP-s, No Pre serve, 2-Dose Series (Pfizer) 12/09/2020,11/18/2020 H1N1 2009 Influenza, IM 02/02/2010 Pneumococcal Conjugate Vacc, 13 Valent (Prevnar) 02/17/2016 Pneumococcal Polysaccharide PPV23 (Pneumovax) Seasonal Influenza, PF, 6 M & above, IM , (FluLaval or Fluzone) 07/08/2018 Seasonal Influenza, Quadrivalent, No Preserve, I M 06/19/2017 Seasonal Influenza, Trivalen t, High Dose, No Preserve, IM 06/19/2019 TDAP, Age 7 and older, IM (Adacel) [...] 01/30/2024 Does the household have a re lar source of income? (Household - for ages [...] as of this encounter Progress Notes * Marly Kaba CRNP - 04/22/2024 4:14 PM EDT Telemed Follow up Family Medicine Visit Patient location: HOME. I was in a hospital or clinic location. After connecting through [employer],patient was verified with two unique identifiers. Patient (or authorized legal access services representative) was then informed that this was a Telemedicine visit and being conducted confidentially over secure lines. Methods to assure confidentiality were taken. Patient acknowledged consent and understanding of pr ivacy and security of the Telemedicine visit. The patient agreed to participate. CC:medical equipment History of Present Illness: Ortega Coronel is a 78 year old male presenting today to discuss need for motorized wheelchair. He has post polio syndrome with paraplegia. He is able to have exertion without sob due to chronic respiratory failure. Not currently falling but he never stands independently. He is not having pressure sores. He has difficulty self propelling his own wheelchair due to chronic respiratory failure. He is currently using 2-3 LPM. He is unable to walk independently due to muscle weakness Height: 5 ft 3 inches Weight: 180 lbs Social History Socioeconomic History Marital status: Spouse name: Not on file Number of children: Not on file Years of education: Not on file Highest education level: Not on file Occupational History Not on file Tobacco Use Smoking status: Former Current packs/day: 0.00 Average packs/day: 1 pack/day for 15.0 years (15.0 ttl pk-yrs) Types: Cigarettes Start date: 04/18/1967 Quit date: 04/18/1982 Years since quittin.0 Smokeless tobacco: Never Vaping Use Vaping status: Never Used Substance and Sexual Activity Alcohol use: Never Drug use: Never Sexual activity: Not on file Other Topics Concern Not on file Social History Narrative No pets. No mold. Social Determinants of Health Financial Resource Strain: Low Risk (01/30/2024) Financial Resource Strain Do you have any trouble paying for your medications, or do you think you might in the future? (Adult - for ages 18 years and over): No Does your family have trouble paying for medicine? (Household - for ages 0-17 years): Not on file Food Insecurity: No Food Insecurity (01/30/2024) Food Insecurity Do you need food for this week? (Adult - for ages 18 years and over): No Are you able to get enough food for your family? (Household - for ages 0-17 years): Not on file Does your family need food this week? (Household - for ages 0-17 years): Not on file Do you always have enough food for your family? (Household - for ages 0-17 years): Not on file Transportation Needs: No Transportation Needs (01/30/2024) Transportation Needs Do you have trouble getting a ride to medical visits or work? (Adult - for ages 18 years and over):Never True Does your family have a hard time getting a ride to doctors visits? (Household - for ages 0-17 years): Not on file Has lack of transportation kept you from medical appointments, meetings, work, or from getting things needed for daily living? Check all that apply. (Adult - for ages 18 years and over): Not on file Do you (or your family) have trouble finding or paying for a ride (transportation)? (Household - for ages 0-17 years): Not on file Social Connections: Socially Integrated (01/30/2024) Social Connections How often do you feel lonely or isolated from those around you? (Adult - for ages 18 years and over): Never Housing Stability: Low Risk (01/30/2024) Housing Stability Do you currently live in a halfway or have no steady place to sleep at night? (Adult - for ages 18 years and over): No Do you think you are at risk of becoming homeless? (Adult - for ages 18 years and over): No Does your family worry about paying for your home or becoming homeless? (Household - for ages 0-17 years): Not on file Are you homeless or worried that you might be in the future? (Adult - for ages 18 years and over): Not on file Are you (or your family) homeless or worried that you might be in the future? 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 & diverticulitis SPINAL FUSION, 6 OR LESS VERT, POST 1960 thoracic - 1960 Current Outpatient Medications Medication Sig Dispense Refill [...] of patient's allergies indicates: No Known Allergies Most Recent Immunizations Administered Date(s) Administered COVID-19 mRNA, LNP-s, No Preserve, 2-Dose Series ([employer]) 12/09/2020 H1N1 2009 Influenza, IM 02/02/2010 Pneumococcal Conjugate Vacc, 13 Valent (Prevnar) 02/17/2016 Pneumococcal Polysaccharide PPV23 (Pneumovax) 02/21/2012 Seasonal Influenza, PF, 6 M & above, IM , (FluLaval or Fluzone) 07/08/2018 Seasonal Influenza, Quadrivalent, No Preserve, IM 06/19/2017 Seasonal Influenza, Split, IIV3, With Preserve, Inj 09/11/2005 Seasonal Influenza, Trivalent, High Dose, No Preserve, IM 06/19/2019 TD - Tetanus/Diptheria (ADULT) 10/01/1999 TDAP, Age 7 and older, IM (Adacel) 03/09/2009 Varicella Zoster Vaccine (Adult) 04/16/2013 Review of Systems: Review of Systems Respiratory: Positive for shortness of breath. Neurological: Positive for weakness. Physical Exam: There were no vitals taken for this visit. Physical Exam Constitutional: Comments: SEATED AND NASAL CANULA IN PLACE HENT: Head: Normocephalic. Pulmonary: Effort: Pulmonary effort is normal. Neurological: General: No focal deficit present. Mental Status: He is alert and oriented to person, place, and time. Psychiatric: Mood and Affect: Mood normal. Behavior: Behavior normal. Thought Content: Thought content normal. Judgment: Judgment normal. Assessment and Plan: 1. Paraplegia (HCC) FACE TO FACE TODAY UNABLE TO WALK OR STAND DIFFICULTY USING SELF PREPELLED WHEELCHAIR - PHYSICAL THERAPY REFERRAL OP 2. Debility HE IS UNABLE TO SELF PROPELL HIS OWN WHEELCHAIR DUE TO DEBILITY AND CHRONIC RESPIRATORY FAILURE - PHYSICAL THERAPY REFERRAL OP 3. Chronic hypoxemic respiratory failure (HCC) DUE TO RESTRICTIVE LUNG DISEASE ON 2-3LPM 4. Restrictive lung disease I have advised the patient to call our office incase of any worsening or new symptoms. I spent a total of 20-29 minutes (exact time 25 mins) on the date of service in preparation, delivery, and documentation of the care provided to Ortega Coronel excluding any time spent in the performance of separately billed services. Anna, MSN, ONLINE HEALTH AND FITNESS COACH [facility] documented in this encounter Plan of Treatment Scheduled Referrals Name Type Priority Associated Diagnoses Orde r Schedule PHYSICAL THERAPY REFERRAL OP Referral Within 30 days (routine) Paraplegia (HCC) Debility Ordered: 04/22/2024 Health Maintenance Due Date Last Done Comments Albumin/Creatinine Ratio 1963 Hepatitis C Screening 1963 Zoster Vaccines (2 of 3) 06/11/2013 04/16/2013 DTaP,Tdap,and Td Vaccines (2 - Td or Tdap) 03/09/2019 03/09/2009, 10/01/1999 Depression Screening 05/10/2019 05/10/2018 COVID-19 Vaccine ( - season) 2023 07/12/2023, 12/09/2020, 11/18/2020 Influenza Vaccine (FLU shot) (#1) 2024 08/01/2021, [...] as of this encounter Visit Diagnoses Diagnosis Paraplegia (HCC)- Primary Paraplegia Debility Debility, unspecified Chronic hypoxemic respiratory failure (HCC) Chronic respiratory failure Restrictive lung disease Other diseases of lung, not elsewhere classified documented in this encounter Care Teams Purse Seining Hand Relationship Specialty Start Date End Date Sin Benoit MD [address] [address] PCP - General Family Medicine 01/27/20 documented as of this encounter
--- OUTSIDE RECORDS SUMMARY | 2024-08-13 20:40 | External Medical Summary | Summary of Care ---
Author Name Unknown Organization [facility] Address [address] [place] [address] Phone [phone] Care Team Providers Care Brand Marketing Coordinator Name Role Phone Sin Benoit MD Primary Care Provider [phone] Reason for Visit * Reason Onset Date Comments Advice 03/25/2024 Encounter Details Date Type Department Care Team (Late st Contact Info) Description 03/25/2024 Telephone Family Practice [facility] [address] [facility] [place] [address] Sin Benoit MD [address] 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 Oxygen dependent 02/17/2016 Restrictive lung disease 03/05/2014 Wheelchair bound 02/27/2013 REGLA (obstructive sleep apnea) 12/24/2001 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 HTN, goal below 130/80 Paraplegia documented as of this encounter (statuses as of 04/14/2024) Resolved Problems Problem Noted Date Diagnosed Date Resolved Date Nocturnal hypoxemia 02/25/2021 02/13/20 23 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/2017 01/27/2020 Dyslipidemia 03/05/2014 01/27/2020 Vitamin D deficiency 03/05/2014 020 HTN, goal below 140/90 02/27/200101/26 DIVERTICULITIS OF COLON 10/10/200012/31 POLIO OSTEOPATHY-MULT 2019 documented as of this encounter (statuses as of 04/14/2024) Immunizations Name Administration Dates Next Due COVID-19 mRNA, LNP-s, No Pre serve, 2-Dose Series ([employer]) 12/09/2020,11/18/2020 H1N1 2009 Influenza, IM 02/02/2010 Pneumococcal [...] encounter Miscellaneous Notes * Telephone Encounter - Sin Benoit MD - 04/14/2024 1:45 PM EDT I have no idea what is needed. That's an insurance issue. Someone will need to find out for me I have nothing to do with that aspect of things. * Telephone Encounter - Starr Nichols LPN - 04/14/2024 11:02 AM EDT Patient's is calling. has a manual wheelchair. Now needs a power wheelchair. Has an upcoming video visit on 04/22/24. Is this sufficient for him to get the power wheelchair? [place] [facility] [place] They have an accent and are very hard to understand. Patients reports patient is frustrated. He has specific needs and feels left out. * Telephone Encounter - Maria Fernanda Banks OSA - 04/14/2024 10:58 AM EDT Reason for patient's call: asking to speak to nurse Caller was transferred to [facility] at the nurse line. * Telephone Encounter - Violet Steiner MED ASSIST - 03/27/2024 8:20 AM EDT Faxed to [employer]. * Telephone Encounter - Sin Benoit MD - 03/25/2024 2:39 PM EDT Signed. * Telephone Encounter - Mary Tucker LPN - 03/25/2024 1:45 PM EDT DME for power wheelchair pending. Says that pt cannot use manual wheelchair. * Telephone Encounter - Gustavo Agrawal OSA - 03/25/2024 1:32 PM EDT Images from the original note were not included. Patients calling about a new wheel chair that is needed for her . A powered wheel chairis needed, instead of the manual one being used. Please call back [facility] [phone] documented in this encounter Plan of Treatment Upcoming Encounters Date Type Department Care Team (Late st Contact Info) Description 04/22/2024 4:00 PM EDT Telemedicine Family Practice [facility] [address] [place] [address] Marly Kaba CRNP [address] [place] [place] [address] Health Maintenance Due Date Last Done Comments Albumin/Creatinine Ratio 1963 Hepatitis C Screening 1963 Zoster Vaccines (2 of 3) 06/11/2013 04/16/2013 DTaP,Tdap,and Td Vaccines (2 - Td or Tdap) 03/09/2019 03/09/2009, 10/01/1999 Depression Screening 05/10/2019 05/10/2018 COVID-19 Vaccine ( season) 2023 07/12/2023, 12/09/2020, 11/18/2020 Influenza Vaccine [...] Visit Diagnoses Diagnosis Paraplegia (HCC)- Primary Paraplegia documented in this encounter Care Teams Brand Marketing Coordinator Relationship Specialty Start Date End Date Sin Benoit MD [address] [place] [place] [address] PCP - General Family Medicine 01/27/20 documented as of this encounter
--- OUTSIDE RECORDS SUMMARY | 2024-08-13 20:40 | External Medical Summary | Summary of Care ---
Author Name Unknown Organization [facility] Address [address] [place] [address] Phone [phone] Care Team Providers Care Police Officer Name Role Phone Sin Benoit MD Primary Care Provider [phone] Reason for Visit * Reason Onset Date Comments FYI 04/02/2024 Encounter Details Date Type Department Care Team (Late st Contact Info) Description 04/02/2024 Telephone Family Practice [facility] [address] [place] [address] Sin Benoit MD [address] [place] [address] FYI Allergies No known active allergiesdocumented as of this encounter (statuses as of 04/25/2024) Medications Medication Sig Dispensed Refills Start Date End Date Status oxygen IN GASIndications:Still Photographer franco hypoxemic respiratory failure (HCC),Post-polio syndrome,Restrictiv e [...] encounter Miscellaneous Notes * Telephone Encounter - Marly Kaba CRNP - 04/25/2024 4:36 PM EDT Forms completed and given to Sara Castillo, MSN, RADHA [facility] * Telephone Encounter - Rena Wetzel LPN - 04/25/2024 4:04 PM EDT Do you have forms requested for motility device? * Telephone Encounter - Davina Anderson OSA - 04/24/2024 9:15 AM EDT Nighat with [employer] calling to verify that patient kept with appt on 04/22 with Marly Kaba and if paperwork was able to be complete at that time Requesting office to fax completed forms back at [phone] * Telephone Encounter - Marly Kaba CRNP - 04/17/2024 3:05 PM EDT Noted Will address at appt on 04/22/2024 Anna, KIMMY, RADHA [facility] * Telephone Encounter - Patricia Cavazos OSA - 04/17/2024 2:05 PM EDT Reason for patient's call: [employer] states she needs to confirm with a nurse that forms were received and give 2-3 instructions. Caller was transferred to Yris at the clinic. * Telephone Encounter - Yris Hill LPN - 04/17/2024 2:05 PM EDT Danica calling from [employer], asking if the paperwork that was faxed [...] questions regarding the form: EXT: [phone] FAX: [phone] * Telephone Encounter - Isis Samuels OSA - 04/02/2024 12:30 PM EDT Carroll green V from [employer] called, stated pt call them [...] filedocumented as of this encounter Care Teams Police Officer Relationship Specialty Start Date End Date Sin Benoit MD [address] [place] [address] PCP - General Family Medicine 01/27/20 documented as of this encounter
--- OUTSIDE RECORDS SUMMARY | 2024-08-13 20:40 | External Medical Summary | Summary of Care ---
Author Name Unknown Organization [facility] Address [address] [place] [address] Phone [phone] Care Team Providers Care Audio Production Instructor Name Role Phone Sin Benoit MD Primary Care Provider [phone] Reason for Visit * Reason Onset Date Comments FYI 04/02/2024 Encounter Details Date Type Department Care Team (Late st Contact Info) Description 04/02/2024 Telephone Family Practice [facility] [address] [place] [address] Sin Benoit MD [address] [place] [address] FYI Allergies No known active allergiesdocumented as of this encounter (statuses as of 04/24/2024) Medications Medication Sig Dispensed Refills Start Date End Date Status oxygen IN GASIndications:Senior Physician franco hypoxemic respiratory failure (HCC),Post-polio syndrome,Restrictiv e [...] as of this encounter (statuses as of 04/24/2024) Active Problems Problem Noted Date Diagnosed Date Debility 04/22/2024 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/28/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 Oxygen dependent 02/17/2016 Restrictive lung disease 03/05/2014 Wheelchair bound 02/27/2013 REGLA (obstructive sleep apnea) 12/24/2001 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 HTN, goal below 130/80 Paraplegia documented as of this encounter (statuses as of 04/24/2024) Resolved Problems Problem Noted Date Diagnosed Date Resolved Date Nocturnal hypoxemia 02/25/2021 02/13/20 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/2017 01/27/2020 Dyslipidemia 03/05/2014 01/27/2020 Vitamin D deficiency 03/05/2014 020 HTN, goal below 140/90 02/27/200101/26 DIVERTICULITIS OF COLON 10/10/200012/31 POLIO OSTEOPATHY-MULT 2019 documented as of this encounter (statuses as of 04/24/2024) Immunizations Name Administration Dates Next Due COVID-19 [...] encounter Miscellaneous Notes * Telephone Encounter - Davina Anderson OSA - 04/24/2024 9:15 AM EDT Nighat with [employer] [facility] and if paperwork was able to be complete at that time Requesting office to fax completed forms back at [phone] * Telephone Encounter - Marly Kaba CRNP - 04/17/2024 3:05 PM EDT Noted Will address at [facility] on 04/22/2024 Anna, KIMMY, RADHA [facility] * Telephone Encounter - Patricia Cavazos OSA - 04/17/2024 2:05 PM EDT Reason for patient's call: [employer] states she needs to confirm with a nurse that forms were received and give 2-3 instructions. Caller was transferred to [facility] at the clinic. * Telephone Encounter - Yris Hill LPN - 04/17/2024 2:05 PM EDT Danica calling from [employer] asking if the paperwork that was faxed [...] questions regarding the form: EXT: [phone] FAX: [phone] * Telephone Encounter - Isis Samuels OSA - 04/02/2024 12:30 PM EDT Good afternoon, V from [facility] called, stated pt call them requesting power [...] filedocumented as of this encounter Care Teams Audio Production Instructor Relationship Specialty Start Date End Date Sin Benoit MD [address] [facility] [place] [address] PCP - General Family Medicine 01/27/20 documented as of this encounter
--- OUTSIDE RECORDS SUMMARY | 2024-08-13 20:40 | External Medical Summary | Summary of Care ---
Author Name Unknown Organization [facility] Address [address] [place] [address] Phone [phone] Care Team Providers Care Strip Mill Operator Name Role Phone Sin Benoit MD Primary Care Provider +1 [phone] Reason for Visit * Reason Onset Date Comments Advice 03/25/2024 Encounter Details Date Type Department Care Team (Late st Contact Info) Description 03/25/2024 Telephone Family Practice [facility] [address] [facility] [place] [address] Sin Benoit MD [address] [facility] [place] [address] Advice Allergies No known active allergiesdocumented as of this encounter (statuses as of 03/27/2024) Medications Medication Sig Dispensed Refills Start Date End Date Status oxygen IN GASIndications:Rvda Master Certified Rv Technician franco hypoxemic respiratory failure (HCC),Post-polio syndrome,Restrictiv [...] as of this encounter (statuses as of 03/27/2024) Active Problems Problem Noted Date Diagnosed Date 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/28/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 Oxygen dependent 02/17/2016 Restrictive lung disease 03/05/2014 Wheelchair bound 02/27/2013 REGLA (obstructive sleep apnea) 12/24/2001 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 HTN, goal below 130/80 Paraplegia documented as of this encounter (statuses as of 03/27/2024) Resolved Problems Problem Noted Date Diagnosed Date Resolved Date Nocturnal hypoxemia 02/25/2021 02/13/20 23 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/2017 01/27/2020 Dyslipidemia 03/05/2014 01/27/2020 Vitamin D deficiency 03/05/2014 020 HTN, goal below 140/90 02/27/200101/26 DIVERTICULITIS OF COLON 10/10/200012/31 POLIO OSTEOPATHY-MULT 2019 documented as of this encounter (statuses as of 03/27/2024) Immunizations Name Administration Dates Next Due COVID-19 mRNA, LNP-s, No Pre serve, 2-Dose Series ([employer]) 12/09/2020,11/18/2020 H1N1 2009 Influenza, IM 02/02/2010 Pneumococcal [...] encounter Miscellaneous Notes * Telephone Encounter - Violet Steiner MED ASSIST - 03/27/2024 8:20 AM EDT Faxed to [employer]. * Telephone Encounter - Sin Benoit MD [...] manual one being used. Please call back [facility] [phone] documented in this encounter Plan of Treatment Upcoming Encounters Date Type Department Care Team (Late st Contact Info) Description 04/22/2024 4:00 PM EDT Telemedicine Family Practice [facility] [address] [place] [address] Marly Kaba CRNP [address] [place] [address] Health Maintenance Due Date Last Done Comments Albumin/Creatinine Ratio 1963 Hepatitis C Screening 1963 Zoster Vaccines (2 of 3) 06/11/2013 04/16/2013 DTaP,Tdap,and Td Vaccines (2 - Td or Tdap) 03/09/2019 03/09/2009, 10/01/1999 Depression Screening 05/10/2019 05/10/2018 COVID-19 Vaccine ( season) 2023 07/12/2023, 12/09/2020, 11/18/2020 Influenza Vaccine (FLU shot) (Season Ended) 2024 08/01/2021, 06/19/2019, 07/08/2018, Additional history exists GFR 01/20/2025 01/21/2024, 07/02, 04/15/2021, Additional history exists Pneumococcal Vaccine: 65+ Years Completed 02/17/2016, 02/21/2012 GARDASIL-HPV IMMUNIZATION SERIES Aged Out No longer eligible based on patient's age to complete this topic Hepatitis B Aged Out No longer eligi ble based on patient's age to complete this topic MENINGOCOCCAL (MENACTRA/MENVEO) Aged Out No longer eligible based on patient's age to complete this topic documented as of this encounter Medical Devices Not on filedocumented as of this encounter Visit Diagnoses Diagnosis Paraplegia (HCC)- Primary Paraplegia documented in this encounter Care Teams Strip Mill Operator Relationship Specialty Start Date End Date Sin Benoit MD [address] [address] PCP - General Family Medicine 01/27/20 documented as of this encounter
--- OUTSIDE RECORDS SUMMARY | 2024-08-13 20:40 | External Medical Summary | Summary of Care ---
Author Name Unknown Organization [facility] Address [address] [place] [address] Phone [phone] Care Team Providers Care Finish Specialist Name Role Phone Sin Benoit MD Primary Care Provider [phone] [phone] Reason for Visit * Reason Onset Date Comments FYI 04/02/2024 Encounter Details Date Type Department Care Team (Late st Contact Info) Description 04/02/2024 Telephone Family Practice [facility] [address] [place] [address] Sin Benoit MD [address] [place] [address] FYI Allergies No known active allergiesdocumented as of this encounter (statuses as of 04/17/2024) Medications Medication Sig Dispensed Refills Start Date End Date Status oxygen IN GASIndications:Conflict Resolution Professional franco hypoxemic respiratory failure (HCC),Post-polio syndrome,Restrictiv e [...] as of this encounter (statuses as of 04/17/2024) Active Problems Problem Noted Date Diagnosed Date 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/28/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 Oxygen dependent 02/17/2016 Restrictive lung disease 03/05/2014 Wheelchair bound 02/27/2013 REGLA (obstructive sleep apnea) 12/24/2001 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 HTN, goal below 130/80 Paraplegia documented as of this encounter (statuses as of 04/17/2024) Resolved Problems Problem Noted Date Diagnosed Date Resolved Date Nocturnal hypoxemia 02/25/2021 02/13/20 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/2017 01/27/2020 Dyslipidemia 03/05/2014 01/27/2020 Vitamin D deficiency 03/05/2014 020 HTN, goal below 140/90 02/27/200101/26 DIVERTICULITIS OF COLON 10/10/200012/31 POLIO OSTEOPATHY-MULT 2019 documented as of this encounter (statuses as of 04/17/2024) Immunizations Name Administration Dates Next Due COVID-19 mRNA, LNP-s, No Pre serve, 2-Dose Series ([employer]) 12/09/2020,11/18/2020 H1N1 2009 Influenza, IM 02/02/2010 Pneumococcal [...] at appt on 04/22/2024 Anna, KIMMY, RADHA [facility] * Telephone Encounter - Patricia Cavazos OSA - 04/17/2024 2:05 PM EDT Reason for patient's call: Rosdom states she needs to confirm with a nurse that forms were received and give 2-3 instructions. Caller was transferred to Yris at the clinic. * Telephone Encounter - Yris Hill LPN - 04/17/2024 2:05 PM EDT Danica calling from [employer], asking if the paperwork that was faxed [...] questions regarding the form: EXT: [phone] FAX: [phone] * Telephone Encounter - Isis Samuels OSA - 04/02/2024 12:30 PM EDT Good afternoon, V from [employer] called, stated pt call them requesting power mobility device, per V Pt's need mobility evaluation from PCP, Pt have a future appt. For 04/22. Please advise. Thank you documented in this encounter Plan of Treatment Upcoming Encounters Date Type Department Care Team (Late st Contact Info) Description 04/22/2024 4:00 PM EDT Telemedicine Family Practice [facility] [address] [place] [address] Marly Kaba CRNP [address] [place] [address] Health Maintenance Due Date Last Done Comments Albumin/Creatinine Ratio 1963 Hepatitis C Screening 1963 Zoster Vaccines (2 of 3) 06/11/2013 04/16/2013 DTaP,Tdap,and Td Vaccines (2 - Td or Tdap) 03/09/2019 03/09/2009, 10/01/1999 Depression Screening 05/10/2019 05/10/2018 COVID-19 Vaccine (4 - season) 2023 07/12/2023, 12/09/2020, 11/18/2020 Influenza [...] filedocumented as of this encounter Care Teams Finish Specialist Relationship Specialty Start Date End Date Sin Benoit MD [address] [facility] [place] [address] PCP - General Family Medicine 01/27/20 documented as of this encounter
--- OUTSIDE RECORDS SUMMARY | 2024-08-13 20:40 | External Medical Summary | Summary of Care ---
Author Name Unknown Organization [facility] Address [address] [place] [address] Phone [phone] Care Team Providers Care On Call Pharmacy Technician Name Role Phone Sin Benoit MD Primary Care Provider [phone] Reason for Visit * Reason Onset Date Comments Advice 03/25/2024 Encounter Details Date Type Department Care Team (Late st Contact Info) Description 03/25/2024 Telephone Family Practice [facility] [address] [facility] [place] [address] Sin Benoit MD [address] [address] Advice Allergies No known active allergiesdocumented as of this encounter (statuses as of 04/14/2024) Medications Medication Sig Dispensed Refills Start Date End Date Status oxygen IN GASIndications:Flat Knitter franco hypoxemic respiratory failure (HCC),Post-polio syndrome,Restrictiv e [...] mRNA, LNP-s, No Pre serve, 2-Dose Series ([employer]) 12/09/2020,11/18/2020 H1N1 2009 Influenza, IM 02/02/2010 Pneumococcal [...] encounter Miscellaneous Notes * Telephone Encounter - Maria Fernanda Banks OSA - 04/14/2024 10:58 AM EDT Reason for patient's call: asking to speak to nurse Caller was transferred to [facility] at the nurse line. * Telephone Encounter - Violet Steiner MED ASSIST - 03/27/2024 8:20 AM EDT Faxed to [employer]. * Telephone Encounter - Sin Benoit MD [...] manual one being used. Please call back [facility] [phone] documented in this encounter Plan of Treatment Upcoming Encounters Date Type Department Care Team (Late st Contact Info) Description 04/22/2024 4:00 PM EDT Telemedicine Family Practice [facility] [address] [place] [address] Marly Kaba CRNP [address] [place] [address] Health Maintenance Due Date Last Done Comments Albumin/Creatinine Ratio 1963 Hepatitis C Screening 1963 Zoster Vaccines (2 of 3) 06/11/2013 04/16/2013 DTaP,Tdap,and Td Vaccines (2 - Td or Tdap) 03/09/2019 03/09/2009, 10/01/1999 Depression Screening 05/10/2019 05/10/2018 COVID-19 Vaccine ( - 2022- season) 2023 07/12/2023, 12/09/2020, 11/18/2020 Influenza Vaccine [...] Paraplegia documented in this encounter Care Teams On Call Pharmacy Technician Relationship Specialty Start Date End Date Sin Benoit MD [address] [place] [address] PCP - General Family Medicine 01/27/20 documented as of this encounter
--- OUTSIDE RECORDS SUMMARY | 2024-08-13 20:40 | External Medical Summary | Summary of Care ---
Author Name Unknown Organization [facility] Address [address] [place] [address] Phone [phone] Care Team Providers Care Principal Research Economist Name Role Phone Sin Benoit MD Primary Care Provider [phone] Reason for Visit * Reason Onset Date Comments FYI 04/02/2024 Encounter Details Date Type Department Care Team (Late st Contact Info) Description 04/02/2024 Telephone Family Practice [facility] [address] [place] [address] Sin Benoit MD [address] [place] [address] FYI Allergies No known active allergiesdocumented as of this encounter (statuses as of 04/29/2024) Medications Medication Sig Dispensed Refills Start Date End Date Status oxygen IN GASIndications:Engagement Specialist franco hypoxemic respiratory failure (HCC),Post-polio syndrome,Restrictiv e [...] as of this encounter (statuses as of 04/29/2024) Active Problems Problem Noted Date Diagnosed Date Debility 04/22/2024 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/28/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 Oxygen dependent 02/17/2016 Restrictive lung disease 03/05/2014 Wheelchair bound 02/27/2013 REGLA (obstructive sleep apnea) 12/24/2001 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 HTN, goal below 130/80 Paraplegia documented as of this encounter (statuses as of 04/29/2024) Resolved Problems Problem Noted Date Diagnosed Date Resolved Date Nocturnal hypoxemia 02/25/2021 02/13/20 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/2017 01/27/2020 Dyslipidemia 03/05/2014 01/27/2020 Vitamin D deficiency 03/05/2014 020 HTN, goal below 140/90 02/27/200101/26 DIVERTICULITIS OF COLON 10/10/200012/31 POLIO OSTEOPATHY-MULT 2019 documented as of this encounter (statuses as of 04/29/2024) Immunizations Name Administration Dates Next Due COVID-19 [...] and given to Sara Castillo, MSN, RADHA [facility] * Telephone Encounter - Rena Wetzel LPN - 04/25/2024 4:04 PM EDT Do you have forms requested for motility device? * Telephone Encounter - Davina Anderson OSA - 04/24/2024 9:15 AM EDT Nighat with [employer] calling to verify that patient kept with appt on 04/22 with Marly Kaba and if paperwork was able to be complete at that time Requesting office to fax completed forms back at [phone] * Telephone Encounter - Marly Kaba CRNP - 04/17/2024 3:05 PM EDT Noted Will address at appt on 04/22/2024 Anna, KIMMY, RADHA [facility] * Telephone Encounter - Patricia Cavazos OSA - 04/17/2024 2:05 PM EDT Reason for patient's call: Edi states she needs to confirm with a nurse that forms were received and give 2-3 instructions. Caller was transferred to Yris at the clinic. * Telephone Encounter - Yris Hill LPN - 04/17/2024 2:05 PM EDT Danica calling from [employer], asking if the paperwork that was faxed [...] questions regarding the form: EXT: [phone] FAX: [phone] * Telephone Encounter - Isis Samuels OSA - 04/02/2024 12:30 PM EDT Good afternoon, V from [employer] called, stated [...] filedocumented as of this encounter Care Teams Principal Research Economist Relationship Specialty Start Date End Date Sin Benoit MD [address] [place] [address] PCP - General Family Medicine 01/27/20 documented as of this encounter
--- OUTSIDE RECORDS SUMMARY | 2024-08-13 20:40 | External Medical Summary | Summary of Care ---
Author Name Unknown Organization [facility] Address [address] [place] [address] Phone [phone] Care Team Providers Care Environmental Air Specialist Name Role Phone Sin Benoit MD Primary Care Provider [phone] [phone] Reason for Visit * Reason Onset Date Comments Advice 03/25/2024 Encounter Details Date Type Department Care Team (Late st Contact Info) Description 03/25/[address] [facility] [address] [facility] [place] [address] Sin Benoit MD [address] [facility] [place] [address] Advice Allergies No known active allergiesdocumented as of this encounter (statuses as of 04/14/2024) Medications Medication Sig Dispensed Refills Start Date End Date Status oxygen IN GASIndications:Formulation Technician franco hypoxemic respiratory failure (HCC),Post-polio syndrome,Restrictiv [...] mRNA, LNP-s, No Pre serve, 2-Dose Series ([employer]) 12/09/2020,11/18/2020 H1N1 2009 Influenza, IM 02/02/2010 Pneumococcal [...] encounter Miscellaneous Notes * Telephone Encounter - Starr Nichols LPN - 04/14/2024 11:02 AM EDT Patient's is calling. has a manual wheelchair. Now needs a power wheelchair. Has an upcoming video visit on 04/22/24. Is this sufficient for him to get the power wheelchair? The DME has called them already. They have an Italian accent and are very hard to understand. Patients reports patient is frustrated. He has specific needs and feels left out. * Telephone Encounter - Maria Fernanda aBnks OSA - 04/14/2024 10:58 AM EDT Reason for patient's call: asking to speak to nurse Caller was transferred to Starr at the nurse line. * Telephone Encounter - Violet Steiner MED ASSIST - 03/27/2024 8:20 AM EDT Faxed to [employer]. * Telephone Encounter - Sin Benoit MD [...] manual one being used. Please call back [facility] [phone] documented in this encounter Plan of Treatment Upcoming Encounters Date Type Department Care Team (Late st Contact Info) Description 04/22/2024 4:00 PM EDT Telemedicine Family Practice [facility] [address] [facility] [place] [address] Marly Kaba CRNP [address] [facility] [place] [address] Health Maintenance Due Date Last Done Comments Albumin/Creatinine Ratio 1963 Hepatitis C Screening 1963 Zoster Vaccines (2 of 3) 06/11/2013 04/16/2013 DTaP,Tdap,and Td Vaccines (2 - Td or Tdap) 03/09/2019 03/09/2009, 10/01/1999 Depression Screening 05/10/2019 05/10/2018 COVID-19 Vaccine (4 - 24 season) 2023 07/12/2023, 12/09/2020, 11/18/2020 Influenza Vaccine [...] Paraplegia documented in this encounter Care Teams Environmental Air Specialist Relationship Specialty Start Date End Date Sin Benoit MD [address] [place] [address] PCP - General Family Medicine 01/27/20 documented as of this encounter
--- OUTSIDE RECORDS SUMMARY | 2024-08-13 20:40 | External Medical Summary | Summary of Care ---
Author Name Unknown Organization [facility] Address [address] [place] [address] Phone [phone] Care Team Providers Care School Transportation Supervisor Name Role Phone Sin Benoit MD Primary Care Provider [phone] [phone] Reason for Visit * Reason Onset Date Comments Advice 03/25/2024 Encounter Details Date Type Department Care Team (Late st Contact Info) Description 03/25/2024 Telephone Family Practice [facility] [address] 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 Oxygen dependent 02/17/2016 Restrictive lung disease 03/05/2014 Wheelchair bound 02/27/2013 REGLA (obstructive sleep apnea) 12/24/2001 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 HTN, goal below 130/80 Paraplegia documented as of this encounter (statuses as of 04/15/2024) Resolved Problems Problem Noted Date Diagnosed Date Resolved Date Nocturnal hypoxemia 02/25/2021 02/13/20 23 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/2017 01/27/2020 Dyslipidemia 03/05/2014 01/27/2020 Vitamin D deficiency 03/05/2014 020 HTN, goal below 140/90 02/27/200101/26 DIVERTICULITIS OF COLON 10/10/200012/31 POLIO OSTEOPATHY-MULT 2019 documented as of this encounter (statuses as of 04/15/2024) Immunizations Name Administration Dates Next Due COVID-19 mRNA, LNP-s, No Pre serve, 2-Dose Series ([employer]) 12/09/2020,11/18/2020 H1N1 2009 Influenza, IM 02/02/2010 Pneumococcal [...] Telephone Encounter - Mariajose Mendoza LPN - 04/15/2024 9:05 AM EDT Sent my g * Telephone Encounter - Sin Benoit MD [...] has called them already. They have an Sri [place]ankan accent and are very hard to understand. Patients reports patient is frustrated. He has specific needs and feels left out. * Telephone Encounter - Maria Fernanda Banks OSA - 04/14/2024 10:58 AM EDT Reason for patient's call: asking to speak to nurse Caller was transferred to [facility] at the nurse line. * Telephone Encounter - Violet Steiner MED ASSIST - 03/27/2024 8:20 AM EDT Faxed to [email or web address]. * Telephone Encounter - Sin Benoit MD [...] manual one being used. Please call back [facility] [phone] documented in this encounter Plan of Treatment Upcoming Encounters Date Type Department Care Team (Late st Contact Info) Description 04/22/2024 4:00 PM EDT Telemedicine Family [facility] [address] [place] [address] Marly Kaba CRNP [address] [place] [address] Health Maintenance Due Date Last Done Comments Albumin/Creatinine Ratio 1963 Hepatitis C Screening 1963 Zoster Vaccines (2 of 3) 06/11/2013 04/16/2013 DTaP,Tdap,and Td Vaccines (2 - Td or Tdap) 03/09/2019 03/09/2009, 10/01/1999 Depression Screening 05/10/2019 05/10/2018 COVID-19 Vaccine (4 - 2022-24 season) 2023 07/12/2023, 12/09/2020, 11/18/2020 Influenza Vaccine [...] Paraplegia documented in this encounter Care Teams School Transportation Supervisor Relationship Specialty Start Date End Date Sin Benoit MD [address] [place] [address] PCP - General Family Medicine 01/27/20 documented as of this encounter
[2024-08-13] MEDS: ATENOLOL 25 MG TABLET PO SCH (21:39)
[2024-08-13] MEDS: PIPERACILLIN/TAZOBACTAM 4.5 GM/100 ML BAG IV SCH (21:47)
[2024-08-14 06:43] LABS: Hematocrit (blood only) 32.8 % (42.0-52.0); Hemoglobin 9.9 g/dl (14.0-18.0); Mean Corpuscular Hemoglobin 28.6 pg (25.0-34.0); Mean Corpuscular Hgb Conc 30.2 g/dL (32.0-36.0); Mean Corpuscular Volume 94.8 fL (80.0-100.0); Mean Platelet Volume 9.8 fL (9.4-12.4); Platelet Count 214 K/uL (130-400); RDW Coefficient of Variation 13.9 % (11.5-14.5); RDW Standard Deviation 48.5 fL (36.4-46.3); Red Blood Count 3.46 M/uL (4.70-6.10); White Blood Count 11.69 K/ul (4.8-10.8)
[2024-08-14 07:02] LABS: Albumin Globulin Ratio 1.1 (0.9-2); Albumin Level 2.8 gm/dl (3.4-5.0); BUN Creatinine Ratio 42.2 (10-20); Bilirubin,Total 0.6 mg/dl (0.2-1.0); Calcium 8.8 mg/dl (8.6-10.3); Creatinine Clr Calc Pharmacy 125.4 ml/min; Globulin 2.5 gm/dl (2.5-4.0); Potassium 4.1 mmol/L (3.5-5.1); Total Protein 5.3 gm/dl (6.0-8.3)
[2024-08-14] MEDS: CHOLECALCIFEROL 25 MCG (1000 UNITS) TAB PO SCH (08:11)
--- NOTE | 2024-08-14 08:16 | Fluoroscopy Report ---
FL KUB CLINICAL HISTORY: Right retrograde exam with stent placement. COMPARISON STUDY: CT of the abdomen and pelvis August 13, 2024 FLUOROSCOPY TIME: 37.9 seconds. Ka,r: 21.29 mGy FLUOROSCOPIC IMAGES: 1 FINDINGS: Fluoroscopy was provided during right retrograde pyelogram with right ureteral stent placem ent. The proximal aspect of the stent is within the right renal pelvis. IMPRESSION: Fluoroscopy provided during right retrograde pyelogram with right ureteral stent placeme nt. ACT 112: Negative or not required by law. Electronically signed by: Tucker Aguilar M.D. 08/14/2024 8:14 AM
--- NOTE | 2024-08-14 09:43 | Urology Progress Note ---
<Statement entered by Ike Harrington MD - 08/14/24 12:24> I have discussed Mr. Coronel's case with RADHA Siddiqui and agree with the above documentation. Okay for voiding trial today if patient is feeling well. Continue broad-spectrum antibiotics and narrow coverage as culture data becomes available. Urology will arrange outpatient follow-up -Ike Harrington MD. Date of Service August 14, 2024 Assessment & Plan (1) Hydronephrosis with urinary obstruction due to renal calculus: Plan 78-year-old male found to have obstructing right proximal ureteral stone. POD #1 s/p cystoscopy and right ureteral stent placement Presented to the ER with Right Flank Pain, Low-Grade Fever, labs indicated possible infection although UA analysis was not concerning for infection Tolerating the ureteral stent with minimal bother. Labs reviewed -WBCs 11.69, hemoglobin 9.9, creatinine 0.45 Urine culture is pending. Currently on Zosyn. Garrison catheter in place, draining appropriately for maximal decompression. Continue supportive care and monitoring per primary team. Continue antibiotics as prescribed, trend per culture results. No plan for further urologic intervention during this admission. Will arrange outpatient follow-up with our service for definitive stone management after the infection has been treated. Urology will sign out. Admission and Anticipated Discharge Date Admission Date: August 13, 2024 Subjective Patient examined at bedside Resting comfortably in bed Denies right flank pain or any other pain Catheter draining giron red No other complications overnight Review of Systems Constitutional: as per Subjective / HPI Genitourinary: + as per Subjective / HPI Physical Exam Constitutional: well developed and well nourished; no acute distress Respiratory: normal respiratory effort and able to speak in complete sentences Musculoskeletal: Extremities: extremities normal to inspection Psychiatric: Orientation: alert and oriented x 3 Results & Data Vital Signs (Past 12 Hours) Vital Signs Temp Pulse Resp BP Pulse Ox O2 Del Method O2 Flow Rate 08/14/24 08:10 36.6 C 65 18 176/84 H 100 Nasal Cannula 3 08/14/24 02:59 36.4 C L 54 L 19 145/82 H 100 BiPAP 3 08/13/24 22:20 36.6 C 61 17 154/88 H 100 BiPAP 3 PG Care Time/CCT Total # of Minutes Spent Total Time Spent with Patient: Total time spent is greater than 50% in coordination of care (as documented) at patient's floor/unit and/or counseling patient: Coding Level of Care Code 48560 SUB INP/OBS CARE 235MIN Diagnoses Hydronephrosis with urinary obstruction due to renal calculus N13.2
--- OUTSIDE RECORDS SUMMARY | 2024-08-14 11:38 | External Medical Summary | Summary of Care ---
Author Name Unknown Organization [facility] Address [address] [place] [address] Phone [phone] Care Team Providers Care Stator Connector Name Role Phone Sin Benoit MD Primary Care Provider [phone] Reason for Visit * Reason Onset Date Comments Appointment 08/12/2024 Encounter Details Date Type Department Care Team (Late st Contact Info) Description 08/12/2024 Telephone Family Practice Health system [address] [facility] [place] [address] Sin Benoit MD [address] [place] [address] Appointment Allergies No known active allergiesdocumented as [...] 02/17/2016 Pneumococcal Polysaccharide PPV23 (Pneumovax) 02/21/2012 Seasonal Influenza Vac., MDV , IM, 0.5 mL (Fluzone) 09/11/2005,07/26/2004,09/08/2003,08/08 Seasonal Influenza, High Dos e, Trivalent, PF, IM (Fluzone HD) 06/19/2019 Seasonal Influenza, PF, 6 M & above, IM , (FluLaval or Fluzone) 07/08/2018 Seasonal Influenza, Quadriva lent, No Preserve, IM 06/19/2017 TD - Tetanus/Diptheria (ADULT) 10/01/1999 TDAP, Age [...] encounter Miscellaneous Notes * Telephone Encounter - Gabby Borges OSA - 08/13/2024 9:45 AM EST Pt is calling said they wanted to cancel appt on Sunday bc they want to just go to hospital any question please call pt back at [phone] * Telephone Encounter - Jimena Louis OSA [...] filedocumented as of this encounter Care Teams Stator Connector Relationship Specialty Start Date End Date Sin Benoit MD [address] [place] [address] PCP - General Family Medicine 01/27/20 documented as of this encounter
--- NOTE | 2024-08-14 13:10 | Hospitalist Progress Note ---
Date of Service August 14, 2024 Assessment & Plan (1) Acute pyelonephritis: (2) SAMI (acute kidney injury): (3) Hydronephrosis with urinary obstruction due to renal calculus: (4) Wheelchair dependence: (5) Polio: (6) Scoliosis: (7) HTN (hypertension): (8) Colostomy in place: Plan The patient is a 78-year-old male with a past medical history of postpolio syndrome, paraplegia, chronic hypoxic respiratory failureon 3 L chronically, central sleep apneaon BiPAP at bedtime, HTN, vitamin D deficiency who presents to the ED on 08/13/2024 with complaints of right flank pain and low-grade fever intermittently over the past few weeks. Moderate R hydroureteronephrosis Right 10 mm ureteral calculi: Pt presenting with R flank pain Patient with leukocytosis but no documented fevers UA completed and urine Cx with no significant growth currently CT abdomen pelvis noting obstructing calculi and right hydro ureter nephrosis Completed 10 days of treatment with p.o. ciprofloxacin as an outpatient but still with flank pain Urology was consulted -s/p cystoscopy with right retrograde pyelogram/stent placement on 08/13 Continue IV Zosyn - Garrison in place, recommending trial of void tomorrow Continue to monitor Hematuria Acute on chronic Anemia Garrison bag with noted hematuria Hemoglobin with acute decrease from 11 down to 9 AM. anemia panel with iron studies as well as folate and B12 Transfuse as needed for hgb <7 Hx HTN: Continue atenolol, holding lisinopril in setting of above Chronic hypoxic respiratory failure Central sleep apnea: On baseline 3 L O2 [id number] Continue BiPAP at at bedtime Vitamin D deficiency continue home supplement Diet: HH DVT prophylaxis: SCDs in setting of hematuria and anemia Dispo: Home once medically stable Admission and Anticipated Discharge Date Admission Date: August 13, 2024 Subjective patient was seen with his at bedside in the AM States that his pain was controlled postop Otherwise denied acute concerns His with multiple questions called and updated. also updated at bedside in the AM. Review of Systems Review of Systems: All systems reviewed & are unremarkable except as noted in Subjective Physical Exam Physical Exam: General: Alert, oriented, bipap/cpap on face Psych: Appropriate mood and affect HEENT: NC/AT Chest: noted projection CV: RRR Resp: Breath sounds clear bilaterally, no increased effort of breathing Abdomen:Soft, tender, ostomy bag in place Results & Data Results & Data Vital Signs (Past 12 Hours) Vital Signs Temp Pulse Resp BP Pulse Ox O2 Del Method O2 Flow Rate 08/14/24 12:01 37.2 C 91 H 16 160/88 H 93 Nasal Cannula 3 08/14/24 08:10 36.6 C 65 18 176/84 H 100 Nasal Cannula 3 08/14/24 08:00 Nasal Cannula, BiPAP 3 08/14/24 02:59 36.4 C L 54 L 19 145/82 H 100 BiPAP 3 Diagnostic Findings Abdomen Fluoroscopy 08/13/24 00:00 FL KUB CLINICAL HISTORY: Right retrograde exam with stent placement. COMPARISON STUDY: CT of the abdomen and pelvis August 13, 2024 FLUOROSCOPY TIME: 37.9 seconds. Ka,r: 21.29 mGy FLUOROSCOPIC IMAGES: 1 FINDINGS: Fluoroscopy was provided during right retrograde pyelogram with right ureteral stent placement. The proximal aspect of the stent is within the right renal pelvis. IMPRESSION: Fluoroscopy provided during right retrograde pyelogram with right ureteral stent placement. ACT 112: Negative or not required by law. Electronically signed by: Tucker Aguilar M.D. 08/14/2024 8:14 AM Abdomen/Pelvis CT 08/13/24 10:[address] WITH IV CONTRAST CT DOSE: 1254.1 mGy.cm HISTORY: Acute right-sided flank pain . History of left-sided colostomy with parastomal hernia right flank pain TECHNIQUE: Multiaxial CT images of the abdomen and pelvis were performed following the IV administration of 94 cc of Optiray, A dose lowering technique was utilized adhering to the principles of ALARA. COMPARISON STUDY: 07/05/2019 FINDINGS: Limited exam secondary to patient positioning and chronic musculoskeletal deformities. Cardiomegaly with coronary artery calcifications. Trace pleural effusions with dependent bibasilar opacities favoring atelectasis. No pneumoperitoneum identified. Unremarkable spleen, pancreas and right adrenal gland. There are 2 left adrenal gland lesions which appear stable from prior and appear to represent adenomata. Stone filled gallbladder with gallbladder wall thickening and mild pericholecystic stranding, similar to prior. Gallstones extend into the gallbladder neck. No biliary ductal dilation or choledocholithiasis identified. Patent portal vein. Lesions of the kidneys includes cysts and subcentimeter hypodensities which are too small to characterize. 4 mm nonobstructing calculus of the inferior pole left kidney. Moderate right-sided hydroureteronephrosis with delayed nephrogram. There are a few nonobstructing calculi in the right kidney measuring up to 5 mm. Moderate perinephric and periureteral inflammatory stranding/trace fluid. There is a 9 x 7 x 10 mm proximal right ureteral calculus on image 142 with an adjacent more distal 5 mm ureteral calculus on image 148. There is an apparent 1.5 cm enhancing nodular focus abutting the inferior pole right kidney image 125 series 3. Moderate urothelial thickening of the right renal collecting system and ureter. Partially decompressed bladder with wall thickening and small diverticulum. Prostatomegaly. Atherosclerosis of the aorta without aneurysm. No bowel obstruction or bowel wall thickening. Colonic diverticulosis. Fat and bowel-containing abdominal wall hernias are redemonstrated. Thinning of the anterior abdominal wall musculature. Diffuse most likely suggestive of nonweightbearing status. No acute fracture identified. IMPRESSION: 1. Moderate right-sided hydroureteronephrosis with delayed nephrogram secondary to two proximal to mid right ureteral calculi measuring up to 10 mm. 2. Associated urothelial thickening of the right renal collecting system and ureter is likely reactive. Correlate with urinalysis to exclude superimposed infection. 3. Nonobstructing bilateral nephrolithiasis. 4. There is an apparent indeterminate 1.5 cm lesion of the inferior pole right kidney. Correlation with follow-up renal ultrasound recommended. 5. Additional findings as above. ACT 112: Negative or not required by law. The above report was generated using voice recognition software. It may contain grammatical, syntax or spelling errors. Electronically signed by: Jossue Christensen M.D. 08/13/2024 12:10 PM Chest X-Ray 08/13/24 10:29 XR chest 1V portable CLINICAL HISTORY: Back pain. COMPARISON STUDY: Chest radiograph March 29, 2023. FINDINGS: There is severe thoracic spine scoliosis and chronic rib deformities. This results in suboptimal evaluation of the chest. There is no pneumothorax or definite pleural effusion. Enlargement of the cardiac silhouette is unchanged. Mediastinal contours are stable. Hazy bilateral peripheral and bibasilar opacities are present. These are similar to prior exam. IMPRESSION: 1. Suboptimal evaluation of the chest due to severe scoliosis and rib deformities. 2. Hazy bilateral perihilar and bibasilar which favor artifact or atelectasis. An infectious process is within the differential. ACT 112: Negative or not required by law. Electronically signed by: Tucker Aguilar M.D. 08/13/2024 11:02 AM
[2024-08-14 14:53] VITALS: O2SAT 98
--- NOTE | 2024-08-14 17:06 | Electrocardiogram Report ---
Test Reason : Blood Pressure : */* mmHG Vent. Rate : 68 BPM Atrial Rate : 68 BPM P-R Int : 142 ms QRS Dur : 96 ms QT Int : 386 ms P-R-T Axes : 40 51 61 degrees QTcB Int : 410 ms Normal sinus rhythm Normal ECG When compared with ECG of 05-Jul-2019 17:58, No significant change was found Confirmed by Sin Flores ([id number]) on 08/14/2024 5:06:20 PM Referred By: REFERRED SELF Confirmed By: Sin Flores
--- NOTE | 2024-08-14 23:02 | Surgery Consultation ---
Date of Consultation August 14, 2024 Assessment & Plan (1) Colostomy, evaluate: Patient is a 78-year-old male who was admitted to the medical service on on 08/13/2024 for hydronephrosis with urinary obstruction due to renal calculus. He was found to have 2 large right ureteral obstructing calculi and he underwent a cystoscopy with right ureteral stent placement with the urology team. Today he expressed concern for having a small amount of liquid stool per rectum. 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 I evaluated the patient this evening at bedside, he is resting in bed comfortably, vitals are stable, and he has no complaints of abdominal pain, N/V. Patient tells me that throughout all the years of having his colostomy this is the first time he's experienced having any stool from his rectum. He states the stool was not formed and was more of a "smear" of stool-colored liquid and denies any presence of blood. He states his ostomy is functioning without any issues. On exam his ostomy is pink and healthy appearing and there was stool and gas present in his bag. I did explained to the patient that he can still have a small amount of liquid/mucus per rectum even though he has a colostomy in place. There is currently no indication for any surgical intervention. Surgery will sign off, please re-consult with any questions or concerns. History of Present Illness History of Present Illness The patient is a 78-year-old male with a PMH significant for postpolio syndrome, paraplegia, chronic hypoxic respiratory failure (on 3 L chronically), central sleep apnea (on BiPAP at bedtime) , HTN, and vitamin D deficiency who was admitted to the medical service on on 08/13/2024 for hydronephrosis with urinary obstruction due to renal calculus. He was found to have 2 large right ureteral obstructing calculi and he underwent a cystoscopy with right ureteral stent placement with the urology team. The patient today expressed concern due to having a small amount of liquid stool from his rectum. He states he has had a colostomy for roughly 20 years due to diverticulitis, his ostomy has been functioning without any issues however today was the first time he has ever experienced this. The patient was seen and examined this evening at bedside, he is resting in bed comfortably, BiPAP in place (chronic), and vitals are stable. Patient tells me that throughout all the years of having his colostomy he has never had any stool from his rectum. He states the stool was not formed and was more of a "smear" of stool-colored liquid and denies any presence of blood. The patient otherwise denies any abdominal pain, nausea, vomiting, or decreased stool output from his ostomy. Allergies Allergy/AdvReac Type Severity Reaction Status Date / Time No Known Allergies Allergy Verified 08/13/24 13:08 Home Medications Medication Instructions Recorded Confirmed Type atenolol 25 mg tablet 25 mg PO HS 07/05/19 08/13/24 History lisinopril 20 mg tablet 20 mg PO HS 07/05/19 08/13/24 History cholecalciferol (vitamin D3) 25 25 mcg PO DAILY 08/13/24 08/13/24 History mcg (1,000 unit) tablet (Vitamin D3) Patient History Medical History Concern about drug reaction without diagnosis Patient concerned with anesthesia regarding upcoming cataracts surgery specifically in regards to hx REGLA. States he spoke with Dr. Hadley regarding possibility of no/little anesthesia perioperatively depending patient patient's confort level. Will discuss further DOS. On home oxygen therapy "a little less than 3L continously" Cataract Wheelchair dependence need for mechanical lift-always Polio hx-affected pt neurologically, sometimes affects his breathing while sleeping Scoliosis "has trouble laying flat due to this" Sleep apnea BIPAP HTN (hypertension) Colostomy in place Surgical History Hx of left cataract extraction History of surgery on lower extremity as a child Hx of foot surgery multiple as child Hx of spinal fusion as a child Status post colostomy History of intestinal surgery due to constricted intestine Hx of colonoscopy Social History Smoking Status: Never smoker Second Hand Exposure: No; Do You Dip or Chew Tobacco: No; Hx Alcohol Use: No Hx Substance Use: No Preferred Language: Andorran Communication Ability: Effective Communication Ability Comment: pt hard of hearing without hearing aides in [place] Required: No Beliefs That Will Affect Care: None Current Living Situation: Spouse Feels Safe at Home: Yes Safety Concerns: Feels Safe At This Time Assistive Devices: BiPap, Oxygen - Continuous, Scooter/Electric Scooter, Walker and Wheelchair Review of Systems Constitutional: as per Subjective / HPI Physical Exam Constitutional: WD/WN, vitals as above Respiratory: Nonlabored respirations, no respiratory distress. Patient with BiPAP in place (chronic). Cardiovascular: RRR, no murmur, no edema Gastrointestinal (Abdomen): Abdomen obese, soft, nondistended, nontender to palpation. No rebound, guarding, or peritonitis. +Ostomy in place to left side of abdomen , ostomy pink and healthy appearing, stool and gas present in bag. Psychiatric: A+Ox3, euthymic affect Results & Data Vital Signs (Past 12 Hours) Vital Signs Temp Pulse Resp BP Pulse Ox O2 Del Method O2 Flow Rate 08/14/24 21:00 37.0 C 69 18 145/75 H 98 BiPAP 08/14/24 14:52 37.3 C 69 16 157/83 H 98 BiPAP 08/14/24 12:01 37.2 C 91 H 16 160/88 H 93 Nasal Cannula 3 Diagnostic Findings ABDOMEN AND PELVIS CT WITH IV CONTRAST CT DOSE: 1254.1 mGy.cm HISTORY: Acute right-sided flank pain . History of left-sided colostomy with parastomal hernia right flank pain TECHNIQUE: Multiaxial CT images of the abdomen and pelvis were performed following the IV administration of 94 cc of Optiray, A dose lowering technique was utilized adhering to the principles of ALARA. COMPARISON STUDY: 07/05/2019 FINDINGS: Limited exam secondary to patient positioning and chronic musculoskeletal deformities. Cardiomegaly with coronary artery calcifications. Trace pleural effusions with dependent bibasilar opacities favoring atelectasis. No pneumoperitoneum identified. Unremarkable spleen, pancreas and right adrenal gland. There are 2 left adrenal gland lesions which appear stable from prior and appear to represent adenomata. Stone filled gallbladder with gallbladder wall thickening and mild pericholecystic stranding, similar to prior. Gallstones extend into the gallbladder neck. No biliary ductal dilation or choledocholithiasis identified. Patent portal vein. Lesions of the kidneys includes cysts and subcentimeter hypodensities which are too small to characterize. 4 mm nonobstructing calculus of the inferior pole left kidney. Moderate right-sided hydroureteronephrosis with delayed nephrogram. There are a few nonobstructing calculi in the right kidney measuring up to 5 mm. Moderate perinephric and periureteral inflammatory stranding/trace fluid. There is a 9 x 7 x 10 mm proximal right ureteral calculus on image 142 with an adjacent more distal 5 mm ureteral calculus on image 148. There is an apparent 1.5 cm enhancing nodular focus abutting the inferior pole right kidney image 125 series 3. Moderate urothelial thickening of the right renal collecting system and ureter. Partially decompressed bladder with wall thickening and small diverticulum. Prostatomegaly. Atherosclerosis of the aorta without aneurysm. No bowel obstruction or bowel wall thickening. Colonic diverticulosis. Fat and bowel-containing abdominal wall hernias are redemonstrated. Thinning of the anterior abdominal wall musculature. Diffuse most likely suggestive of no nweightbearing status. No acute fracture identified. IMPRESSION: 1. Moderate right-sided hydroureteronephrosis with delayed nephrogram secondary to two proximal to mid right ureteral calculi measuring up to 10 mm. 2. Associated urothelial thickening of the right renal collecting system and ureter is likely reactive. Correlate with urinalysis to exclude superimposed infection. 3. Nonobstructing bilateral nephrolithiasis. 4. There is an apparent indeterminate 1.5 cm lesion of the inferior pole right kidney. Correlation with follow-up renal ultrasound recommended. 5. Additional findings as above. PG Care Time/CCT Total # of Minutes Spent Total Time Spent with Patient: Total time spent is greater than 50% in coordination of care (as documented) at patient's floor/unit and/or counseling patient: Coding Level of Care Code 66389 INT INP/OBS CARE 1/40MIN Diagnoses Colostomy, evaluate Z43.3
[2024-08-15 06:40] LABS: Basophils # (auto) 0.03 K/uL (0.00-0.20); Basophils % (auto) 0.3 %; Eosinophils # (auto) 0.08 K/uL (0.00-0.50); Eosinophils % (auto) 0.9 %; Hematocrit (blood only) 31.1 % (42.0-52.0); Hemoglobin 9.4 g/dl (14.0-18.0); Immature Granulocytes # (auto) 0.16 K/uL (0.01-0.20); Immature Granulocytes % (auto) 1.8 %; Lymphocytes # (auto) 1.12 K/uL (1.20-3.40); Lymphocytes % (auto) 12.7 %; Mean Corpuscular Hemoglobin 28.2 pg (25.0-34.0); Mean Corpuscular Hgb Conc 30.2 g/dL (32.0-36.0); Mean Corpuscular Volume 93.4 fL (80.0-100.0); Mean Platelet Volume 9.7 fL (9.4-12.4); Monocytes # (auto) 0.55 K/uL (0.11-0.59); Monocytes % (auto) 6.2 %; Neutrophils # (auto) 6.87 K/uL (1.40-6.50); Neutrophils % (auto) 78.1 %; Platelet Count 209 K/uL (130-400); RDW Coefficient of Variation 14.1 % (11.5-14.5); RDW Standard Deviation 47.9 fL (36.4-46.3); Red Blood Count 3.33 M/uL (4.70-6.10); White Blood Count 8.81 K/ul (4.8-10.8)
[2024-08-15 06:59] LABS: BUN Creatinine Ratio 33.3 (10-20); Calcium 8.5 mg/dl (8.6-10.3); Creatinine Clr Calc Pharmacy 110.6 ml/min; Magnesium 1.8 mg/dl (1.7-2.4); Phosphorus 3.2 mg/dl (2.5-4.9); Potassium 3.9 mmol/L (3.5-5.1)
[2024-08-15 07:19] LABS: Ferritin 213.3 ng/ml (8-388)
[2024-08-15 07:25] LABS: Folate (Folic Acid),Ser orPlas 13.17 ng/ml (>5.38)
[2024-08-15 07:38] VITALS: BP 149/78; RESP 16; TEMP 98.2
--- NOTE | 2024-08-15 12:10 | Discharge Summary ---
Discharge Summary Date of Service August 15, 2024 Principal Dx & Hospital Course #1 = Principal Diagnosis (1) Acute pyelonephritis: (2) SAMI (acute kidney injury): (3) Hydronephrosis with urinary obstruction due to renal calculus: (4) Wheelchair dependence: (5) Polio: (6) Scoliosis: (7) HTN (hypertension): (8) Colostomy in place: Plan The patient is a 78-year-old male with a past medical history of postpolio syndrome, paraplegia, chronic hypoxic respiratory failureon 3 L chronically, central sleep apneaon BiPAP at bedtime, HTN, vitamin D deficiency who presents to the ED on 08/13/2024 with complaints of right flank pain and low-grade fever intermittently over the past few weeks. Moderate R hydroureteronephrosis Right 10 mm ureteral calculi: Pt presenting with R flank pain Patient with leukocytosis but no documented fevers UA completed and urine Cx with no significant growth currently Completed 10 days of treatment with p.o. ciprofloxacin as an outpatient but still with flank pain CT abdomen pelvis noting obstructing calculi and right hydro ureter nephrosis Urology was consulted -s/p cystoscopy with right retrograde pyelogram/stent placement on 08/13 - patient was having hematuria with clots not obstructing the Crews on the day of discharge. Urology was contacted who advised to continue with void trial and have patient follow-up as an outpatient with their office as scheduled. void trial before discharge successful after Crews removal which was recommended by urology. Close PCP and urology follow-up after discharge Indeterminate Kidney lower pole lesion F/U US recommended PCP and Urology follow up after discharge Hematuria Acute on chronic Anemia Crews bag with noted hematuria Hemoglobin with acute decrease from 11 down to 9 AM. anemia panel with iron studies as well as folate and B12 Transfuse as needed for hgb <7 PCP follow-up for continued monitoring Hx HTN: Continue atenolol, held lisinopril in setting of above lisinopril resumed on discharge Chronic hypoxic respiratory failure Central sleep apnea: On baseline 3 L O2 [id number] Continue BiPAP at bedtime Vitamin D deficiency continue home supplement Ostomy present Patient with an episode of having a bowel movement the day after his surgery. Both patient and were very surprised as he has had a colostomy for the last 20 years and has never had a bowel movement through the anus since having it done. General surgery was consulted, and noted the following: "Patient is a 78-year-old male who was admitted to the medical service on on 08/13/2024 for hydronephrosis with urinary obstruction due to renal calculus. He was found to have 2 large right ureteral obstructing calculi and he underwent a cystoscopy with right ureteral stent placement with the urology team. Today he expressed concern for having a small amount of liquid stool per rectum. 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 I evaluated the patient this evening at bedside, he is resting in bed comfortably, vitals are stable, and he has no complaints of abdominal pain, N/V. Patient tells me that throughout all the years of having his colostomy this is the first time he's experienced having any stool from his rectum. He states the stool was not formed and was more of a "smear" of stool-colored liquid and denies any presence of blood. He states his ostomy is functioning without any i ssues. On exam his ostomy is pink and healthy appearing and there was stool and gas present in his bag. I did explained to the patient that he can still have a small amount of liquid/mucus per rectum even though he has a colostomy in place. There is currently no indication for any surgical intervention." Notes For Next Care Provider pt had crews removed before discharge. Void trial sucessful. Urology follow up for hematuria and clots. Medication Changes From Visit cefdinir 300mg BID x 5 days Admission HPI Per Admitting Provider The patient is a 78-year-old male with a past medical history of postpolio syndrome, paraplegia, chronic hypoxic respiratory failureon 3 L chronically, central sleep apneaon BiPAP at bedtime, HTN, vitamin D deficiency who presents to the ED on 08/13/2024 with complaints of right flank pain and low-grade fever intermittently over the past few weeks. Patient reports he saw his PCP who recommended treatment with ciprofloxacin for possible UTI. The patient has medical history of kidney stones in the past. The patient completed the 10 days of ciprofloxacin with no improvement in symptoms. He denies any shortness of breath or chest pain. He denies any nausea/vomiting. On exam, he reports his pain is controlled. Crews catheter was placed in the ER On arrival to the ED, labs remarkable for WBC 14, hemoglobin 11.9, chloride 97, bicarb 42, anion gap 12 Chest x-ray showed atelectasis A/P CT showed: 1. Moderate right-sided hydroureteronephrosis with delayed nephrogram secondary to two proximal to mid right ureteral calculi measuring up to 10 mm. 2. Associated urothelial thickening of the right renal collecting system and ureter is likely reactive. Correlate with urinalysis to exclude superimposed infection. 3. Nonobstructing bilateral nephrolithiasis. 4. There is an apparent indeterminate 1.5 cm lesion of the inferior pole right kidney. Correlation with follow-up renal ultrasound recommended. The patient will be admitted for further management of hydroureter/kidney stone Admission Exam Per Admitting Provider Constitutional: WD/WN, vitals as above + not well developed (Paraplegia, scoliosis, deformities postpolio) Eyes: PERRL, conjunctivae normal, anicteric sclerae ENMT: external ear and nose normal, oropharynx normal Neck: trachea midline, no thyromegaly Respiratory: normal respiratory effort, lungs clear to auscultation (Oxygen dependent, BiPAP dependent at bedtime) Cardiovascular: RRR, no murmur, no edema Gastrointestinal (Abdomen): normal bowel sounds, soft, nontender, no hepatosplenomegaly Musculoskeletal: no cyanosis or clubbing, extremities motor strength 5/5 Skin: no rashes, warm and dry Neurologic: PERRL, EOMI, accommodation nl, no face palsy, no dysarthria Psychiatric: A+Ox3, euthymic affect Lymphatic: no cervical or axillary lymphadenopathy Discharge Exam General: Alert, oriented, bipap/cpap on face Psych: Appropriate mood and affect HEENT: NC/AT Chest: noted projection CV: RRR Resp: Breath sounds clear bilaterally, no increased effort of breathing Abdomen:Soft, tender, ostomy bag in place Updated Medication List Medication Instructions Recorded Confirmed Type atenolol 25 mg tablet 25 mg PO HS 07/05/19 08/13/24 History lisinopril 20 mg tablet 20 mg PO HS 07/05/19 08/13/24 History cholecalciferol (vitamin D3) 25 25 mcg PO DAILY 08/13/24 08/13/24 History mcg (1,000 unit) tablet (Vitamin D3) cefdinir 300 mg capsule 300 mg PO BID #10 caps 08/15/24 Rx Hospital Stay Data Consultations 08/13/24 12:26 ED Decision to Admit Stat 08/13/24 13:09 Consult Urology Routine 08/14/24 21:14 Consult General Surgery Routine Procedures Performed Operation Date: 08/13/24 11:40 Actual Procedures p Cystoscopy, Right Stent Placement(Right) - Aramis Cm MD Diagnostic Imagining Performed 08/13/24 FL KUB Routine 08/13/24 10:29 CT abd pelvis IV con only Stat Abdomen Fluoroscopy 08/13/24 00:00 FL KUB CLINICAL HISTORY: Right retrograde exam with stent placement. COMPARISON STUDY: CT of the abdomen and pelvis August 13, 2024 FLUOROSCOPY TIME: 37.9 seconds. Ka,r: 21.29 mGy FLUOROSCOPIC IMAGES: 1 FINDINGS: Fluoroscopy was provided during right retrograde pyelogram with right ureteral stent placement. The proximal aspect of the stent is within the right renal pelvis. IMPRESSION: Fluoroscopy provided during right retrograde pyelogram with right ureteral stent placement. ACT 112: Negative or not required by law. Electronically signed by: Tucker Aguilar M.D. 08/14/2024 8:14 AM Abdomen/Pelvis CT 08/13/24 10:[address] WITH IV CONTRAST CT DOSE: 1254.1 mGy.cm HISTORY: Acute right-sided flank pain . History of left-sided colostomy with parastomal hernia right flank pain TECHNIQUE: Multiaxial CT images of the abdomen and pelvis were performed following the IV administration of 94 cc of Optiray, A dose lowering technique was utilized adhering to the principles of ALARA. COMPARISON STUDY: 07/05/2019 FINDINGS: Limited exam secondary to patient positioning and chronic musculoskeletal deformities. Cardiomegaly with coronary artery calcifications. Trace pleural effusions with dependent bibasilar opacities favoring atelectasis. No pneumoperitoneum identified. Unremarkable spleen, pancreas and right adrenal gland. There are 2 left adrenal gland lesions which appear stable from prior and appear to represent adenomata. Stone filled gallbladder with gallbladder wall thickening and mild pericholecystic stranding, similar to prior. Gallstones extend into the gall bladder neck. No biliary ductal dilation or choledocholithiasis identified. Patent portal vein. Lesions of the kidneys includes cysts and subcentimeter hypodensities which are too small to characterize. 4 mm nonobstructing calculus of the inferior pole left kidney. Moderate right-sided hydroureteronephrosis with delayed nephrogram. There are a few nonobstructing calculi in the right kidney measuring up to 5 mm. Moderate perinephric and periureteral inflammatory stranding/trace fluid. There is a 9 x 7 x 10 mm proximal right ureteral calculus on image 142 with an adjacent more distal 5 mm ureteral calculus on image 148. There is an apparent 1.5 cm enhancing nodular focus abutting the inferior pole right kidney image 125 series 3. Moderate urothelial thickening of the right renal collecting system and ureter. Partially decompressed bladder with wall thickening and small diverticulum. Prostatomegaly. Atherosclerosis of the aorta without aneurysm. No bowel obstruction or bowel wall thickening. Colonic diverticulosis. Fat and bowel-containing abdominal wall hernias are redemonstrated. Thinning of the anterior abdominal wall musculature. Diffuse most likely suggestive of nonweightbearing status. No acute fracture identified. IMPRESSION: 1. Moderate right-sided hydroureteronephrosis with delayed nephrogram secondary to two proximal to mid right ureteral calculi measuring up to 10 mm. 2. Associated urothelial thickening of the right renal collecting system and ureter is likely reactive. Correlate with urinalysis to exclude superimposed infection. 3. Nonobstructing bilateral nephrolithiasis. 4. There is an apparent indeterminate 1.5 cm lesion of the inferior pole right kidney. Correlation with follow-up renal ultrasound recommended. 5. Additional findings as above. ACT 112: Negative or not required by law. The above report was generated using voice recognition software. It may contain grammatical, syntax or spelling errors. Electronically signed by: Jossue Christensen M.D. 08/13/2024 12:10 PM Chest X-Ray 08/13/24 10:29 XR chest 1V portable CLINICAL HISTORY: Back pain. COMPARISON STUDY: Chest radiograph March 29, 2023. FINDINGS: There is severe thoracic spine scoliosis and chronic rib deformities. This results in suboptimal evaluation of the chest. There is no pneumothorax or definite pleural effusion. Enlargement of the cardiac silhouette is unchanged. Mediastinal contours are stable. Hazy bilateral peripheral and bibasilar opacities are present. These are similar to prior exam. IMPRESSION: 1. Suboptimal evaluation of the chest due to severe scoliosis and rib deformities. 2. Hazy bilateral perihilar and bibasilar which favor artifact or atelectasis. An infectious process is within the differential. ACT 112: Negative or not required by law. Electronically signed by: Tucker Aguilar M.D. 08/13/2024 11:02 AM Discharge Instructions Given to Patient (Per Discharging Provider) Kenny, You were admitted and treated for a kidney stone that was blocking your urinary tract. You had surgery done with urology. A stent was placed. Please keep close follow-up with urology after discharge. Their office will contact you to set up appointments for follow-up. For a possible superimposed infection, we are also continuing treatment with the antibiotic cefdinir 300mg BID for an additional 5 days. Please also keep close follow up with your primary care provider after discharge. Please do not hesitate to come back to the emergency room if your symptoms worsen or return. It was a pleasure taking care of you while you were here. Total Time Total Time Spent Total Time Spent (In Minutes): 65
[2024-08-15 17:03] VITALS: PULSE 90
== END 2024-08-15 17:03 | disposition home health service (06) | DRG 660 ==
LOC: ED 10:22 → EDINP 13:09 → 3E 19:24

== ENCOUNTER 2025-01-29 14:28 | Observation (INO) ==
--- NOTE | 2025-01-29 15:03 | Emergency Department Note ---
Impression & Plan Acute on chronic respiratory failure with hypercapnia, Rhinovirus, Shortness of breath ED Provider Note NAME: PAPA CARTWRIGHT AGE: 79 SEX: M : 1945 ARRIVES VIA: Ambulance INFORMANT: Patient ED PROVIDER(S): Domenico Flanagan DO CHIEF COMPLAINT: SOB HPI: Patient is a 79-year-old male who presents ER for shortness of breath. Symptoms started 3 days ago and have been gradually getting worse. Chronically wears 3 L nasal cannula. Admits to a friend who came over and stayed about 6 days ago with cough and congestion. Has gotten worse. Denies any belly pain, nausea, vomiting or diarrhea. No dysuria, urgency or frequency. No other exacerbating or remitting factors. ADDITIONAL HISTORY OBTAINED: Per HPI Chronic Medical/Social Conditions Affecting Care: Per HPI PAST MEDICAL HISTORY:See Below PAST SURGICAL HISTORY:See Below FAMILY HISTORY:See Below SOCIAL HISTORY:See Below HOME MEDICATIONS:See Below ALLERGIES:See Below VITALS:See Below PHYSICAL EXAMINATION: GENERAL: Sitting up in bed, alert, dyspneic with conversation, slightly ill- appearing, intermittent cough EYE EXAM: normal conjunctiva. PERRL and EOM's grossly intact. OROPHARYNX: no exudate, no erythema, lips, buccal mucosa, and tongue normal and mucous membranes are moist NECK: supple, no nuchal rigidity, no adenopathy, non-tender LUNGS: Diminished in the bases. Normal chest wall mechanics HEART: no murmurs, S1 normal and S2 normal ABDOMEN: abdomen soft, non-tender, normo-active bowel sounds, no masses, no rebound or guarding. UPPER EXTREMITIES: upper extremities are grossly normal. LOWER EXTREMITIES: No pitting edema. NEURO EXAM: Normal sensorium, cranial nerves II-XII grossly intact, normal speech, no gross weakness of arms, no gross weakness of legs. MEDICAL DECISION MAKING: Patient is a 79-year-old male who presents ER for the below stated complaint. IV was established and blood work was obtained. He was found to be hypoxic on his chronic 3 L nasal cannula with short conversation he would dip into the mid 80s. IVs were established and blood work was obtained. Labs show no significant leukocytosis. Hemoglobin 11.2. VBG with a pH of 7.2 and a CO2 of 80. BMP with a bicarb of 41. LFTs and bilirubin unremarkable. Troponin was negative. Lipase was at 200. Viral panel was positive for rhinovirus. Patient was placed on BiPAP and then preferred to use her own home BiPAP machine as it is more comfortable. Chest x-ray with no obvious infiltrate. There is no wheezing on exam. It was discussed with the hospitalist initially and then the patient declined admission. They are eventually agreeable to stay after multiple conversations discussing the hypercarbic respiratory failure. VBG was repeated and does appear to be improving. Consults/Care Managements Discussions: Per MDM Triage Nursing notes reviewed. Limited review of prior medical records performed Vital Signs: reviewed and remarkable for no significant abnormalities Differential diagnosis: Differential diagnoses includes but is not limited to pneumonia, bronchitis, COPD/Asthma exacerbation, pneumothorax, pulmonary embolism, congestive heart failure, acute coronary syndrome ER treatment provided: See below Diagnostics interpreted by me include EKG and cardiac monitoring as listed below: -Cardiac Monitoring: An order was placed for continuous cardiac monitoring. The monitor shows a rate of 70 with sinus rhythm. -ECG: Sinus rhythm rate 62 Normal axis No PVCs QTc 393 -Laboratory studies:Interpreted by me as stated above in MDM and shown below. Imaging studies: Xrays: As interpreted by me: Portable AP upright 1 view of the chest shows no obvious large infiltrate but very difficult to interpret CTs show: none Procedures:none Critical Care: I have personally spent 35 minutes of critical care time in the direct management of this patient. This includes bedside care, interpretation of diagnostic studies, and testing, discussion with consultants, patient, and family members, and other required patient management activities. This 35 minutes is in excess of all separately billable procedures. 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 HTN (hypertension) Sleep apnea Central sleep apnea; pt uses BIPAP Scoliosis "has trouble laying flat due to this" Wheelchair dependence need for mechanical lift-always Chronic hypoxic respiratory failure 3L O2 cont Medical History (Updated 01/29/25 @ 19:44 by Domenico Flanagan DO) Colostomy, evaluate Acute pyelonephritis SAMI (acute kidney injury) Flank Pain Hydronephrosis with urinary obstruction due to renal calculus Late effects of poliomyelitis (Unknown) On home oxygen therapy 3L cont Surgical History History of cystoscopy cysto, R stent 08/13/24: MAC without issue History of right cataract extraction Hx of left cataract extraction History of surgery on lower extremity as a child Hx of foot surgery multiple as child Hx of spinal fusion as a child Status post colostomy ~1999 History of intestinal surgery colostomy 2/2 diverticulitis; ~1999 Hx of colonoscopy Social History Smoking Status: Never smoker Tobacco Type: Cigarettes Second Hand Exposure: No; Do You Dip or Chew Tobacco: No; Hx Alcohol Use: No Hx Substance Use: No Preferred Language: Macedonian Communication Ability: Effective Communication Ability Comment: pt hard of hearing without hearing aides in [employer] Required: No Beliefs That Will Affect Care: None Current Living Situation: Spouse Feels Safe at Home: Yes Assistive Devices: BiPap, Glasses, Hearing Aid - Bilateral, Mechanical Lift, Oxygen - Continuous and Wheelchair Allergies Allergies Allergy/AdvReac Type Severity Reaction Status Date / Time nickel AdvReac Mild contact Verified 10/15/24 08:00 dermatitis Home Meds Home Medications Medication Instructions Recorded Confirmed atenolol 25 mg tablet 25 mg PO QAM 07/05/19 01/29/25 lisinopril 20 mg tablet 20 mg PO QAM 07/05/19 01/29/25 cholecalciferol (vitamin D3) 25 25 mcg PO QAM 08/13/24 01/29/25 mcg (1,000 unit) tablet (Vitamin D3) butenafine 1 % topical cream 1 applic topical DAILY PRN fungal 10/15/24 01/29/25 (Lotrimin Ultra) infection ibuprofen 200 mg tablet 200 mg PO Q6H PRN Pain 10/15/24 01/29/25 Previous Rx's Medication Instructions Recorded oxybutynin chloride 5 mg 5 mg PO DAILY #5 tabs 10/15/24 tablet,extended release 24 hr Results & Data (ED) Vital Signs Vital Signs - 24 hr 01/29/25 14:39 01/29/25 14:40 01/29/25 14:40 Temperature 36.9 C Temperature Source Oral Pulse Rate 72 64 Respiratory Rate 25 H Respiratory Effort / Characteristics Spontaneous Labored Respiratory Depth Normal Respiratory Pattern Regular Blood Pressure 160/106 H Blood Pressure Mean 124 Pulse Oximetry 92 Oxygen Delivery Method Nasal Cannula Nasal Cannula Oxygen Flow Rate Sepsis Recent Fever Within 48 Hours No Sepsis New/Unexplained Change in Mental Status No Sepsis Action Taken by Nursing No Action Required 01/29/25 15:09 01/29/25 15:12 01/29/25 15:12 Temperature Temperature Source Pulse Rate 60 Respiratory Rate 24 Respiratory Effort / Characteristics Respiratory Depth Respiratory Pattern Blood Pressure 147/97 H Blood Pressure Mean 113 Pulse Oximetry 95 94 96 Oxygen Delivery Method Nasal Cannula Nasal Cannula Nasal Cannula Oxygen Flow Rate 4 4 4 Sepsis Recent Fever Within 48 Hours Sepsis New/Unexplained Change in Mental Status Sepsis Action Taken by Nursing 01/29/25 15:30 01/29/25 16:00 01/29/25 16:00 Temperature Temperature Source Pulse Rate 65 63 Respiratory Rate 22 20 Respiratory Effort / Characteristics Respiratory Depth Respiratory Pattern Blood Pressure 153/77 H 155/89 H 155/89 H Blood Pressure Mean 102 120 111 Pulse Oximetry 96 96 Oxygen Delivery Method Nasal Cannula Nasal Cannula Oxygen Flow Rate 4 4 Sepsis Recent Fever Within 48 Hours Sepsis New/Unexplained Change in Mental Status Sepsis Action Taken by Nursing 01/29/25 17:18 01/29/25 17:36 01/29/25 18:31 Temperature Temperature Source Pulse Rate 61 58 L 58 L Respiratory Rate 16 22 Respiratory Effort / Characteristics Respiratory Depth Respiratory Pattern Blood Pressure 125/86 131/84 Blood Pressure Mean 99 99 Pulse Oximetry 98 100 Oxygen Delivery Method Oxygen Flow Rate Sepsis Recent Fever Within 48 Hours Sepsis New/Unexplained Change in Mental Status Sepsis Action Taken by Nursing Laboratory Data 01/29/25 14:37 01/29/25 14:37 Lab Results 01/29/25 01/29/25 01/29/25 Range/Units 14:37 16:28 18:21 WBC 6.28 (4.8-10.8) K/ul RBC 4.00 L (4.70-6.10) M/uL Hgb 11.2 L (14.0-18.0) g/dl Hct 37.4 L (42.0-52.0) % MCV 93.5 (80.0-100.0) fL MCH 28.0 (25.0-34.0) pg MCHC 29.9 L (32.0-36.0) g/dL RDW Std Deviation 49.9 H (36.4-46.3) fL RDW Coeff of Marisa 14.6 H (11.5-14.5) % Plt Count 160 (130-400) K/uL MPV 9.9 (9.4-12.4) fL Immature Gran % (Auto) 0.5 % Neut % (Auto) 79.4 % Lymph % (Auto) 8.4 % Gladwin % (Auto) 11.3 % Eos % (Auto) 0.2 % Baso % (Auto) 0.2 % Neut # (Auto) 4.99 (1.40-6.50) K/uL Lymph # (Auto) 0.53 L (1.20-3.40) K/uL Gladwin # (Auto) 0.71 H (0.11-0.59) K/uL Eos # (Auto) 0.01 (0.00-0.50) K/uL Baso # (Auto) 0.01 (0.00-0.20) K/uL Immature Gran # (Auto) 0.03 (0.01-0.20) K/uL VBG pH 7.27 L 7.34 L (7.36-7.41) VBG pCO2 82 H 68 H (38-50) mmHg VBG pO2 24 35 mmHg VBG HCO3 38 37 mmol/L VBG O2 Saturation < 60.0 61.6 % VBG Base Excess 7.6 9.0 mEq/L Sodium 146 H (136-145) mmol/L Potassium 3.9 (3.5-5.1) mmol/L Chloride 104 (98-107) mmol/L Carbon Dioxide 41 H* (21-32) mmol/L Anion Gap 1 L (3-11) BUN 28 H (6-23) mg/dl Creatinine 0.43 L (0.6-1.4) mg/dl Est Cr Clr Drug Dosing 133.1 ml/min eGFR 109.27 BUN/Creatinine Ratio 65.1 H (10-20) Glucose 108 H (70-99(Fasting)) mg/dl Calcium 9.2 (8.6-10.3) mg/dl Total Bilirubin 0.5 (0.2-1.0) mg/dl AST 26 (13-39) U/L ALT 23 (7-52) U/L Alkaline Phosphatase 65 (34-104) U/L Troponin I High Sens 8.6 (0-20) pg/ml Total Protein 6.7 (6.0-8.3) gm/dl Albumin 3.9 (3.4-5.0) gm/dl Globulin 2.8 (2.5-4.0) gm/dl Albumin/Globulin Ratio 1.4 (0.9-2) Lipase 201 H (11-82) U/L Adenovirus (PCR) (NotDetected) B. pertussis DNA (PCR) (NotDetected) B.parapertussis DNA PCR (NotDetected) C. pneumoniae DNA (PCR) (NotDetected) Coronavirus OC43 (PCR) (NotDetected) Coronavirus HKU1 (PCR) (NotDetected) Coronavirus 229E (PCR) (NotDetected) SARS-CoV-2 (PCR) (NotDetected) Coronavirus NL63 (PCR) (NotDetected) Human Metapneumovir PCR (NotDetected) Influenza Type A (PCR) (NotDetected) Influenza Type B (PCR) (NotDetected) M. pneumoniae (PCR) (NotDetected) Parainfluenza 1 (PCR) (NotDetected) Parainfluenza 2 (PCR) (NotDetected) Parainfluenza 3 (PCR) (NotDetected) Parainfluenza 4 (PCR) (NotDetected) RSV (PCR) (NotDetected) Entero/Rhino (PCR) (NotDetected) 01/29/25 Range/Units Unknown WBC (4.8-10.8) K/ul RBC (4.70-6.10) M/uL Hgb (14.0-18.0) g/dl Hct (42.0-52.0) % MCV (80.0-100.0) fL MCH (25.0-34.0) pg MCHC (32.0-36.0) g/dL RDW Std Deviation (36.4-46.3) fL RDW Coeff of Marisa (11.5-14.5) % Plt Count (130-400) K/uL MPV (9.4-12.4) fL Immature Gran % (Auto) % Neut % (Auto) % Lymph % (Auto) % Gladwin % (Auto) % Eos % (Auto) % Baso % (Auto) % Neut # (Auto) (1.40-6.50) K/uL Lymph # (Auto) (1.20-3.40) K/uL Gladwin # (Auto) (0.11-0.59) K/uL Eos # (Auto) (0.00-0.50) K/uL Baso # (Auto) (0.00-0.20) K/uL Immature Gran # (Auto) (0.01-0.20) K/uL VBG pH (7.36-7.41) VBG pCO2 (38-50) mmHg VBG pO2 mmHg VBG HCO3 mmol/L VBG O2 Saturation % VBG Base Excess mEq/L Sodium (136-145) mmol/L Potassium (3.5-5.1) mmol/L Chloride (98-107) mmol/L Carbon Dioxide (21-32) mmol/L Anion Gap (3-11) BUN (6-23) mg/dl Creatinine (0.6-1.4) mg/dl Est Cr Clr Drug Dosing ml/min eGFR BUN/Creatinine Ratio (10-20) Glucose (70-99(Fasting)) mg/dl Calcium (8.6-10.3) mg/dl Total Bilirubin (0.2-1.0) mg/dl AST (13-39) U/L ALT (7-52) U/L Alkaline Phosphatase (34-104) U/L Troponin I High Sens (0-20) pg/ml Total Protein (6.0-8.3) gm/dl Albumin (3.4-5.0) gm/dl Globulin (2.5-4.0) gm/dl Albumin/Globulin Ratio (0.9-2) Lipase (11-82) U/L Adenovirus (PCR) Not Detected (NotDetected) B. pertussis DNA (PCR) Not Detected (NotDetected) B.parapertussis DNA PCR Not Detected (NotDetected) C. pneumoniae DNA (PCR) Not Detected (NotDetected) Coronavirus OC43 (PCR) Not Detected (NotDetected) Coronavirus HKU1 (PCR) Not Detected (NotDetected) Coronavirus 229E (PCR) Not Detected (NotDetected) SARS-CoV-2 (PCR) Not Detected (NotDetected) Coronavirus NL63 (PCR) Not Detected (NotDetected) Human Metapneumovir PCR Not Detected (NotDetected) Influenza Type A (PCR) Not Detected (NotDetected) Influenza Type B (PCR) Not Detected (NotDetected) M. pneumoniae (PCR) Not Detected (NotDetected) Parainfluenza 1 (PCR) Not Detected (NotDetected) Parainfluenza 2 (PCR) Not Detected (NotDetected) Parainfluenza 3 (PCR) Not Detected (NotDetected) Parainfluenza 4 (PCR) Not Detected (NotDetected) RSV (PCR) Not Detected (NotDetected) Entero/Rhino (PCR) DETECTED A (NotDetected) Imaging Data Radiologist's Impression: Chest X-Ray 01/29/25 14:48 XR chest 1V portable CLINICAL HISTORY: Chest pain, nonspecific COMPARISON STUDY: Chest radiograph August 13, 2024. FINDINGS: There is severe thoracic spine scoliosis and chronic rib deformities. This results in suboptimal evaluation of the chest. There is no pneumothorax or definite pleural effusion. Enlargement of the cardiac silhouette is unchanged. Mediastinal contours are stable. Bibasilar opacities likely represent atelectasis. IMPRESSION: 1. Suboptimal evaluation of the chest due to scoliosis and rib deformities. 2. No significant change in appearance of the chest. No definite acute cardiopulmonary findings. ACT 112: Negative or not required by law. Electronically signed by: Tucker Aguilar M.D. 01/29/2025 3:32 PM Discharge Plan Visit Data Chief Complaint: Shortness of Breath/Dyspnea Stated Complaint: SOB ED Provider: Domenico Flanagan Discharge Problem: Acute on chronic respiratory failure with hypercapnia, Rhinovirus, Shortness of breath Patient Disposition: Admitted As Inpatient Condition: Serious Forms Stand Alone Forms: [facility] Prescriptions Prescriptions: No Action lisinopril 20 mg tablet 20 mg PO QAM atenolol 25 mg tablet 25 mg PO QAM cholecalciferol (vitamin D3) [Vitamin D3] 25 mcg (1,000 unit) Tablet 25 mcg PO QAM ibuprofen 200 mg Tablet 200 mg PO Q6H PRN (Reason: Pain) butenafine [Lotrimin Ultra] 1 % Cream 1 applic TOPICAL DAILY PRN (Reason: fungal infection) oxybutynin chloride 5 mg tablet extended release 24hr 5 mg PO DAILY Qty: 5 0RF Referrals Referrals: Sin Benoit MD [Primary Care Provider] -
[2025-01-29 15:06] LABS: Basophils # (auto) 0.01 K/uL (0.00-0.20); Basophils % (auto) 0.2 %; Eosinophils # (auto) 0.01 K/uL (0.00-0.50); Eosinophils % (auto) 0.2 %; Hematocrit (blood only) 37.4 % (42.0-52.0); Hemoglobin 11.2 g/dl (14.0-18.0); Immature Granulocytes # (auto) 0.03 K/uL (0.01-0.20); Immature Granulocytes % (auto) 0.5 %; Lymphocytes # (auto) 0.53 K/uL (1.20-3.40); Lymphocytes % (auto) 8.4 %; Mean Corpuscular Hgb Conc 29.9 g/dL (32.0-36.0); Mean Corpuscular Volume 93.5 fL (80.0-100.0); Mean Platelet Volume 9.9 fL (9.4-12.4); Monocytes # (auto) 0.71 K/uL (0.11-0.59); Monocytes % (auto) 11.3 %; Neutrophils # (auto) 4.99 K/uL (1.40-6.50); Neutrophils % (auto) 79.4 %; Platelet Count 160 K/uL (130-400); RDW Coefficient of Variation 14.6 % (11.5-14.5); RDW Standard Deviation 49.9 fL (36.4-46.3); White Blood Count 6.28 K/ul (4.8-10.8)
--- NOTE | 2025-01-29 15:33 | XRay Report ---
XR chest 1V portable CLINICAL HISTORY: Chest pain, nonspecific COMPARISON STUDY: Chest radiograph August 13, 2024. FINDINGS: There is severe thoracic spine scoliosis and chronic rib deformities. This results in subop timal evaluation of the chest. There is no pneumothorax or definite pleural effusion. Enlargement of the cardiac silhouette is unchanged. Mediastinal contours are stable. Bibasilar opacities likely repr esent atelectasis. IMPRESSION: 1. Suboptimal evaluation of the chest due to scoliosis and rib deformities. 2. No significant change in appearance of the chest. No definite acute cardiopulmonary findings. ACT 112: Negative or not required by law. Electronically signed by: Tucker Aguilar M.D. 01/29/2025 3:32 PM
[2025-01-29 15:34] LABS: Albumin Globulin Ratio 1.4 (0.9-2); Albumin Level 3.9 gm/dl (3.4-5.0); BUN Creatinine Ratio 65.1 (10-20); Bilirubin,Total 0.5 mg/dl (0.2-1.0); Calcium 9.2 mg/dl (8.6-10.3); Creatinine Clr Calc Pharmacy 133.1 ml/min; Globulin 2.8 gm/dl (2.5-4.0); Potassium 3.9 mmol/L (3.5-5.1); Total Protein 6.7 gm/dl (6.0-8.3); Troponin I High Sensitivity 8.6 pg/ml (0-20)
[2025-01-29 16:02] LABS: Adenovirus PCR Not Detected (NotDetected); Bordetella parapertussis PCR Not Detected (NotDetected); Bordetella pertussis PCR Not Detected (NotDetected); Chlamydia pneumoniae PCR Not Detected (NotDetected); Coronavirus 229E PCR Not Detected (NotDetected); Coronavirus CoV-2 (COVID19)PCR Not Detected (NotDetected); Coronavirus HKU1 PCR Not Detected (NotDetected); Coronavirus NL63 PCR Not Detected (NotDetected); Coronavirus OC43PCR Not Detected (NotDetected); Human Metapneumovirus PCR Not Detected (NotDetected); Influenza A PCR Not Detected (NotDetected); Influenza B PCR Not Detected (NotDetected); Mycoplasma pneumoniae PCR Not Detected (NotDetected); Parainfluenza Virus 1 PCR Not Detected (NotDetected); Parainfluenza Virus 2 PCR Not Detected (NotDetected); Parainfluenza Virus 3 PCR Not Detected (NotDetected); Parainfluenza Virus 4 PCR Not Detected (NotDetected); Respiratory Syncytial VirusPCR Not Detected (NotDetected); Rhinovirus/Enterovirus PCR DETECTED (NotDetected)
[2025-01-29 16:35] LABS: Base Excess VBG 7.6 mEq/L; HCO3 VBG 38 mmol/L; Oxygen Saturation VBG < 60.0 %; PCO2 VBG 82 mmHg (38-50); PO2 VBG 24 mmHg; pH VBG 7.27 (7.36-7.41)
--- NOTE | 2025-01-29 17:40 | History & Physical Report ---
Date of Service January 29, 2025 Assessment & Plan (1) Acute on chronic respiratory failure with hypercapnia: (2) Upper respiratory infection, viral: (3) Restrictive lung disease: (4) Sleep apnea: (5) HTN (hypertension): (6) Colostomy in place: Plan 79 year old male with PMH significant for chronic respiratory failure (on 3L NC baseline), restrictive lung disease, scoliosis, REGLA (on bipap qhs), diverticulitis s/p colostomy, HTN, and postpolio paraplegia syndrome (wheelchair bound) who presents to the ED with SOB, cough, and congestion x3 days and is being admitted for acute on chronic respiratory failure with hypercapnia. Acute on chronic respiratory failure with hypercapnia Secondary to viral URI Biofire positive for rhino/entero VBG with respiratory acidosis pH 7.27 CO2 82 CXR revealed no no pneumothorax or pleural effusion; unchanged enlargement of cardiac silhouette; bibasilar opacities likely atelectasis On 3L NC baseline Currently on home bipap Restrictive lung disease Secondary to scoliosis See above Sleep apnea On bipap qhs Hypertension Continue lisinopril and atenolol Colostomy in place Wound consult DVT Prophylaxis: SQ lovenox Code Status: FULL CODE - As per discussion at bedside with the patient. PCP: Dr Sin Benoit MD Disposition: admit to med surg Patient seen in collaboration with Dr Brito. Please see addendum. I spent a total of 75 minutes coordinating, documenting and providing care for this patient excluding time spent in the performance of separately billed services or time spent by another provider/QHP. History of Present Illness Chief Complaint: SOB Primary Care Provider: Sin Benoit MD 79 year old male with PMH significant for chronic respiratory failure (on 3L NC baseline), restrictive lung disease, scoliosis, REGLA (on bipap qhs), diverticulitis s/p colostomy, HTN, and postpolio paraplegia syndrome (wheelchair bound) who presents to the ED with SOB, cough, and congestion x3 days. Allergies Allergy/AdvReac Type Severity Reaction Status Date / Time nickel AdvReac Mild contact Verified 10/15/24 08:00 dermatitis Home Medications Medication Instructions Recorded Confirmed Type atenolol 25 mg tablet 25 mg PO QAM 07/05/19 01/29/25 History lisinopril 20 mg tablet 20 mg PO QAM 07/05/19 01/29/25 History cholecalciferol (vitamin D3) 25 25 mcg PO QAM 08/13/24 01/29/25 History mcg (1,000 unit) tablet (Vitamin D3) butenafine 1 % topical cream 1 applic topical DAILY PRN fungal 10/15/24 01/29/25 History (Lotrimin Ultra) infection ibuprofen 200 mg tablet 200 mg PO Q6H PRN Pain 10/15/24 01/29/25 History oxybutynin chloride 5 mg 5 mg PO DAILY #5 tabs 10/15/24 01/29/25 Rx tablet,extended release 24 hr Past Med/Surg History Problem List (Updated 01/29/25 @ 17:34 by RADHA Bangura) Polio hx polio as a child; now with 'postpolio paraplegia syndrome'; WC bound (requires lift) and requires assistance with all ADLs. 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 HTN (hypertension) Sleep apnea Central sleep apnea; pt uses BIPAP Scoliosis "has trouble laying flat due to this" Wheelchair dependence need for mechanical lift-always Chronic hypoxic respiratory failure 3L O2 cont Medical History (Updated 01/29/25 @ 17:34 by RADHA Bangura) Colostomy, evaluate Acute pyelonephritis SAMI (acute kidney injury) Flank Pain Hydronephrosis with urinary obstruction due to renal calculus Late effects of poliomyelitis (Unknown) On home oxygen therapy 3L cont Surgical History History of cystoscopy cysto, R stent 08/13/24: MAC without issue History of right cataract extraction Hx of left cataract extraction History of surgery on lower extremity as a child Hx of foot surgery multiple as child Hx of spinal fusion as a child Status post colostomy ~1999 History of intestinal surgery colostomy 2/2 diverticulitis; ~1999 Hx of colonoscopy Social History Smoking Status: Never smoker Tobacco Type: Cigarettes Second Hand Exposure: No; Do You Dip or Chew Tobacco: No; Hx Alcohol Use: No Hx Substance Use: No Preferred Language: Luxembourger Communication Ability: Effective Communication Ability Comment: pt hard of hearing without hearing aides in [employer] Required: No Beliefs That Will Affect Care: None Current Living Situation: Spouse Feels Safe at Home: Yes Assistive Devices: BiPap, Glasses, Hearing Aid - Bilateral, Mechanical Lift, Oxygen - Continuous and Wheelchair Review of Systems Review of Systems: All systems reviewed & are unremarkable except as noted in HPI & below Physical Exam Physical Exam: General/Psych: WD/WN, sitting up in bed, NAD, conversing easily, euthymic affect Head: normocephalic, atraumatic Eyes: normal inspection, PERRL, conjunctivae pink, anicteric sclerae ENT: external ear and nose normal, oropharynx normal Neck: normal visual inspection, trachea midline, no thyromegaly Respiratory: normal respiratory effort, lungs clear to auscultation, no wheeze/rales/rhonchi, no accessory muscle use Cardiovascular: regular rate and rhythm, no murmur/rub/gallop, no JVD Extremities: no cyanosis or clubbing, normal peripheral pulses, no BLE edema Abdomen/GI: normal bowel sounds, soft, nontender, no hepatosplenomegaly Neurologic/MSK: A+Ox3, CN's II-XI intact bilaterally, motor strength 5/5, moves all extremities Skin: no rashes, normal color, warm and dry Results & Data Results & Data Vital Signs (Past 12 Hours) Vital Signs Temp Pulse Resp BP Pulse Ox O2 Del Method O2 Flow Rate 01/29/25 16:00 63 20 155/89 H 96 Nasal Cannula 4 01/29/25 16:00 155/89 H 01/29/25 15:30 65 22 153/77 H 96 Nasal Cannula 4 01/29/25 15:12 96 Nasal Cannula 4 01/29/25 15:12 94 Nasal Cannula 4 01/29/25 15:09 60 24 147/97 H 95 Nasal Cannula 4 01/29/25 14:40 Nasal Cannula 01/29/25 14:40 36.9 C 64 25 H 160/106 H 92 Nasal Cannula 01/29/25 14:39 72 Laboratory Results Short CBC 01/29/25 Range/Units 14:37 WBC 6.28 (4.8-10.8) K/ul Hgb 11.2 L (14.0-18.0) g/dl Hct 37.4 L (42.0-52.0) % Plt Count 160 (130-400) K/uL BMP 01/29/25 14:37 Sodium 146 H Potassium 3.9 Chloride 104 Carbon Dioxide 41 H* BUN 28 H Creatinine 0.43 L Glucose 108 H Calcium 9.2 Liver Function 01/29/25 Range/Units 14:37 Total Bilirubin 0.5 (0.2-1.0) mg/dl AST 26 (13-39) U/L ALT 23 (7-52) U/L Alkaline Phosphatase 65 (34-104) U/L Albumin 3.9 (3.4-5.0) gm/dl I have independently reviewed and interpreted patient's admitting labs including CBC, CMP, VBG, lipase and troponin. Diagnostic Findings Chest X-Ray 01/29/25 14:48 XR chest 1V portable CLINICAL HISTORY: Chest pain, nonspecific COMPARISON STUDY: Chest radiograph August 13, 2024. FINDINGS: There is severe thoracic spine scoliosis and chronic rib deformities. This results in suboptimal evaluation of the chest. There is no pneumothorax or definite pleural effusion. Enlargement of the cardiac silhouette is unchanged. Mediastinal contours are stable. Bibasilar opacities likely represent atelectasis. IMPRESSION: 1. Suboptimal evaluation of the chest due to scoliosis and rib deformities. 2. No significant change in appearance of the chest. No definite acute cardiopulmonary findings. ACT 112: Negative or not required by law. Electronically signed by: Tucker Aguilar M.D. 01/29/2025 3:32 PM
[2025-01-29 18:26] LABS: HCO3 VBG 37 mmol/L; Oxygen Saturation VBG 61.6 %; PCO2 VBG 68 mmHg (38-50); PO2 VBG 35 mmHg; pH VBG 7.34 (7.36-7.41)
--- NOTE | 2025-01-29 19:28 | History & Physical Report ---
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 Acute on chronic respiratory failure with hypercapnia secondary to viral URI Biofire positive for rhino/enterovirus CXR revealed no pneumothorax or pleural effusion; unchanged enlargement of cardiac silhouette; bibasilar opacities likely atelectasis Initial VBG pH 7.27 and pCO2 82 with repeat pH 7.34 and pCO2 68 Recheck VBG in am Add doxy for empiric coverage PRN albuterol and dextromethorphan Encourage ISP Restrictive lung disease Secondary to scoliosis See above Sleep apnea On bipap qhs - currently on continuous due to hypercapnia HTN Continue lisinopril and atenolol Colostomy Wound consult DVT Prophylaxis: SQ lovenox Code Status: FULL CODE - As per discussion at bedside with the patient. PCP: Dr Sin Benoit MD Disposition: admit under observation to [facility] Patient seen in collaboration with Dr Brito. Please see addendum. I spent a total of 75 minutes coordinating, documenting and providing care for this patient excluding time spent in the performance of separately billed services or time spent by another provider/QHP. 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 Patient and his provided history. Report they had a friend at their house who had a cold and was coughing. Two days ago, patient developed a productive cough with clear phlegm and SOB that has been worsening which prompted them to be seen in the ED. His notes that he can only travel by ambulance due to patient having paraplegia which is why they came to the ED instead of going to an outpatient clinic. Denies fevers, chills, runny nose, sore throat, chest pain, abdominal pain, N/V. Allergies Allergy/AdvReac Type Severity Reaction Status Date / Time nickel AdvReac Mild contact Verified 10/15/24 08:00 dermatitis Home Medications Medication Instructions Recorded Confirmed Type atenolol 25 mg tablet 25 mg PO QAM 07/05/19 01/29/25 History lisinopril 20 mg tablet 20 mg PO QAM 07/05/19 01/29/25 History cholecalciferol (vitamin D3) 25 25 mcg PO QAM 08/13/24 01/29/25 History mcg (1,000 unit) tablet (Vitamin D3) butenafine 1 % topical cream 1 applic topical DAILY PRN fungal 10/15/24 01/29/25 History (Lotrimin Ultra) infection ibuprofen 200 mg tablet 200 mg PO Q6H PRN Pain 10/15/24 01/29/25 History oxybutynin chloride 5 mg 5 mg PO DAILY #5 tabs 10/15/24 01/29/25 Rx tablet,extended release 24 hr Past Med/Surg History Problem List (Updated 01/29/25 @ 19:44 by Domenico Flanagan DO) Shortness of breath (Acute) Rhinovirus (Acute) Polio hx polio as a child; now with 'postpolio paraplegia syndrome'; WC bound (requires lift) and requires assistance with all ADLs. 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 HTN (hypertension) Sleep apnea Central sleep apnea; pt uses BIPAP Scoliosis "has trouble laying flat due to this" Wheelchair dependence need for mechanical lift-always Chronic hypoxic respiratory failure 3L O2 cont Medical History (Updated 01/29/25 @ 19:44 by Domenico Flanagan DO) Colostomy, evaluate Acute pyelonephritis SAMI (acute kidney injury) Flank Pain Hydronephrosis with urinary obstruction due to renal calculus Late effects of poliomyelitis (Unknown) On home oxygen therapy 3L cont Surgical History History of cystoscopy cysto, R stent 08/13/24: MAC without issue History of right cataract extraction Hx of left cataract extraction History of surgery on lower extremity as a child Hx of foot surgery multiple as child Hx of spinal fusion as a child Status post colostomy ~1999 History of intestinal surgery colostomy 2/2 diverticulitis; ~1999 Hx of colonoscopy Social History Smoking Status: Never smoker Tobacco Type: Cigarettes Second Hand Exposure: No; Do You Dip or Chew Tobacco: No; Hx Alcohol Use: No Hx Substance Use: No Preferred Language: Welsh Communication Ability: Effective Communication Ability Comment: pt hard of hearing without hearing aides in Trip Follower Required: No Beliefs That Will Affect Care: None Current Living Situation: Spouse Feels Safe at Home: Yes Assistive Devices: BiPap, Glasses, Hearing Aid - Bilateral, Mechanical Lift, Oxygen - Continuous and Wheelchair Review of Systems Review of Systems: All systems reviewed & are unremarkable except as noted in HPI & below Physical Exam Physical Exam: General/Psych: WD/WN, laying in bed, NAD, conversing easily, euthymic affect Head: normocephalic, atraumatic Eyes: normal inspection, PERRL, conjunctivae pink, anicteric sclerae ENT: external ear and nose normal, oropharynx normal Neck: normal visual inspection, trachea midline, no thyromegaly Respiratory: normal respiratory effort, lungs clear to auscultation, no wheeze/rales/rhonchi, no accessory muscle use, on nasal bipap, pectus carinatum Cardiovascular: regular rate and rhythm, no murmur/rub/gallop, no JVD Extremities: no cyanosis or clubbing, normal peripheral pulses, no BLE edema Abdomen/GI: normal bowel sounds, soft, nontender, no hepatosplenomegaly Neurologic/MSK: A+Ox3, paraplegia Skin: no rashes, normal color, warm and dry Results & Data Results & Data Vital Signs (Past 12 Hours) Vital Signs Temp Pulse Resp BP Pulse Ox O2 Del Method O2 Flow Rate 01/29/25 18:31 58 L 01/29/25 17:36 58 L 22 131/84 100 01/29/25 17:18 61 16 125/86 98 01/29/25 16:00 63 20 155/89 H 96 Nasal Cannula 4 01/29/25 16:00 155/89 H 01/29/25 15:30 65 22 153/77 H 96 Nasal Cannula 4 01/29/25 15:12 96 Nasal Cannula 4 01/29/25 15:12 94 Nasal Cannula 01/29/25 15:09 60 24 147/97 H 95 Nasal Cannula 01/29/25 14:40 Nasal Cannula 01/29/25 14:40 36.9 C 64 25 H 160/106 H 92 Nasal Cannula 01/29/25 14:39 72 Laboratory Results Short CBC 01/29/25 Range/Units 14:37 WBC 6.28 (4.8-10.8) K/ul Hgb 11.2 L (14.0-18.0) g/dl Hct 37.4 L (42.0-52.0) % Plt Count 160 (130-400) K/uL BMP 01/29/25 14:37 Sodium 146 H Potassium 3.9 Chloride 104 Carbon Dioxide 41 H* BUN 28 H Creatinine 0.43 L Glucose 108 H Calcium 9.2 Liver Function 01/29/25 Range/Units 14:37 Total Bilirubin 0.5 (0.2-1.0) mg/dl AST 26 (13-39) U/L ALT 23 (7-52) U/L Alkaline Phosphatase 65 (34-104) U/L Albumin 3.9 (3.4-5.0) gm/dl I have independently reviewed and interpreted patient's admitting labs including CBC, CMP, VBG, lipase and troponin. Diagnostic Findings Chest X-Ray 01/29/25 14:48 XR chest 1V portable CLINICAL HISTORY: Chest pain, nonspecific COMPARISON STUDY: Chest radiograph August 13, 2024. FINDINGS: There is severe thoracic spine scoliosis and chronic rib deformities. This results in suboptimal evaluation of the chest. There is no pneumothorax or definite pleural effusion. Enlargement of the cardiac silhouette is unchanged. Mediastinal contours are stable. Bibasilar opacities likely represent atelectasis. IMPRESSION: 1. Suboptimal evaluation of the chest due to scoliosis and rib deformities. 2. No significant change in appearance of the chest. No definite acute cardiopulmonary findings. ACT 112: Negative or not required by law. Electronically signed by: Tucker Aguilar M.D. 01/29/2025 3:32 PM Code Status & VTE Plan Code Status Full Code VTE Prophylaxis Plan VTE Prophylaxis will be ordered: Yes Supervising Physician Co-Signing Physician Notes Patient is a 79 yr male with history of restrictive lung disease, scoliosis, REGLA, obesity, chronic respiratory failure with hypoxia requiring 3 L at baseline, postpolio syndrome paraplegia and other medical problems presents with history of worsening shortness of breath and cough since 2 days duration. Patient also had minimal hemoptysis today. He admits to have a family friend with similar symptoms who he was exposed to. He denies any chest pain, nausea, vomiting, abdominal pain, diarrhea. Please review HPI for complete details of presentation. I personally reviewed blood work and imaging studies. VBG showed hypercarbia with CO2 82 which later improved with BiPAP to 68. BioFire positive for enterorhinovirus. Chest x-ray showed no acute process secondary to significant scoliosis and rib deformities. Physical Exam: Vitals signs as noted above General Appearance: Obese, no apparent distress Head: normocephalic, Atraumatic Eyes: normal inspection, EOMI Neck: supple, Trachea midline Respiratory/Chest: Normal breath sounds, CTA, No accessory muscle use,+ pectus Cardiovascular: S1, S2, No murmur Abdomen/GI:Soft, Non tender, Bowel sounds present Extremities/Musculoskeletal:normal inspection, b/l ankle edema Neurologic/Psych:AAOX3, paraplegia Skin: normal color, warm Acute on chronic respiratory failure with hypercarbia Acute bronchitis secondary to rhinovirus Restrictive lung disease, postpolio syndrome, scoliosis and obesity contributing as well Chronic oxygen dependency on 3 L at baseline Continue BiPAP as needed and at bedtime Empirically start on doxycycline, check procalcitonin Will recheck VBG as needed Nebs as needed Continue supplemental oxygen Antitussives as needed I personally interviewed and examined the patient at bedside. I have reviewed the advanced practitioner's documentation on the date of service referred in note and agree with plan. Patient's care is coordinated with Michelle GARCIA. Please refer to the documentation above for details of patient's presentation and for discussion of other issues. I spent a total [id number] coordinating, documenting, and providing care for this patient excluding time spent in the performance of separately billed services or time spent by another provider/QHP.
[2025-01-29] MEDS: ATENOLOL 25 MG TABLET PO ONE (19:53)
[2025-01-29] MEDS: lisinopril 20 MG TAB PO ONE (19:53)
[2025-01-29] MEDS ORDERED: ACETAMINOPHEN 325 MG TAB PO PRN (21:02)
[2025-01-29] MEDS ORDERED: DEXTROMETHORPHAN POLYMR COMPLX 30 MG/5 ML UDP PO PRN (21:02)
[2025-01-29] MEDS ORDERED: ALBUTEROL 0.5% NEB SOLN 2.5 MG/0.5 ML VIAL NEB PRN (21:02)
--- OUTSIDE RECORDS SUMMARY | 2025-01-29 21:05 | External Medical Summary | Summary of Care ---
Author Name Unknown Organization [facility] Address [address] [place] [address] Phone [phone] Care Team Providers Care Sheeter Waxer Operator Name Role Phone Sin Benoit MD Primary Care Provider [phone] Reason for Visit * Reason Onset Date Comments Durable Medical Equipment 10/13/2024 Encounter Details Date Type Department Care Team (Late st Contact Info) Description 10/13/2024 Telephone [facility] [address] [facility] [address] Sin Benoit MD [address] [place] [id number] Durable Medical Equipment Allergies No known active allergiesdocumented as of this encounter (statuses as of 10/15/2024) Medications oxygen IN GASIndications:C hronic hypoxemic respiratory [...] affected area. 80 g 5 1 Active BiPAP every night at bedtime. Active Lisinopril 20 MG Oral Tablet (Prinivil)Indica tions:HTN, goal below 140/90 TAKE 1 TABLET BY MOUTH EVERY DAY 90 Tablet 3 4 Active Atenolol 25 MG Oral Tablet (Tenormin) TAKE 1 TABLET BY MOUTH EVERY DAY IN THE MORNING 90 Tablet 3 4 Active documented as of this encounter (statuses as of 10/15/2024) Active Problems Problem Noted Date Diagnosed Date 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/28/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 Oxygen dependent 02/17/2016 Restrictive lung disease 03/05/2014 Wheelchair dependence 02/27/2013 REGLA (obstructive sleep apnea) 12/24/2001 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 HTN, goal below 130/80 Paraplegia documented as of this encounter (statuses as of 10/15/2024) Resolved Problems Problem Noted Date Diagnosed Date Resolved Date Debility 04/22/2024 08/25/2024 Nocturnal hypoxemia 02/25/2021 02/13/20 23 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/2017 01/27/2020 Dyslipidemia 03/05/2014 01/27/2020 Vitamin D deficiency 03/05/2014 020 HTN, goal below 140/90 02/27/200101/26 DIVERTICULITIS OF COLON 10/10/200012/31 POLIO OSTEOPATHY-MULT 2019 documented as of this encounter (statuses as of 10/15/2024) Immunizations Name Administration Dates Next Due COVID-19 [...] on file 01/01 PHQ-2 Answer Date Recorded PHQ Adult Total Score 0 08/18/2024 Hunger Vital Sign Answer Date Recorded Within the past 12 months, y ou worried that your food would run out before you got the money to buy more. Never true 08/18/20 24 Within the past 12 months, t he food you bought just didn't last and you didn't have money to get more. Never true 08/18/2024 Childcare Answer Date Recorded Do you feel overwhelmed with taking care of a child, family member or friend? No 08/18/2024 Does your family need help f inding childcare? (Household - for ages 0-17 years) Not on file 08/18/2024 Clothing Answer Date Recorded Have you been unable to get clothing when it was really needed? No 08/18/2024 Is your family able to get c lothes or diapers when needed? (Household - for ages 0-17 years) Not on file 08/18/2024 Personal Safety Answer Date Recorded Do you feel unsafe or have concerns for your saf ety? No 08/18/2024 Do you have concerns for you r family's safety? (Household - for ages 0-17 years) Not on file 08/18/2024 Utilities Answer Date Recorded Do you have trouble paying y our heating, water, or electric bill? No 08/18/2024 Is your family able to pay t he heat, water, or electric bill? (Household - for ages 0-17 years) Not on file 08/18/2024 Does your family have access to good internet? (Household - for ages 0-17 years) Not on file 08/18/2024 Employment Status Answer Date Recorded Are you unemployed or without regular income? No 08/18/2024 Does the household have a re gular source of income? (Household - for ages 0-17 years) Not on file 08/18/2024 Social Connections Answer Date Recorded How often do you feel lonely or isolated from th ose around you? Never 08/18/2024 Financial Resource Strain Answer Date R ecorded Do you have any trouble payi ng for your medications, or do you think you might in the future? No 08/18/2024 Does your family have troubl e paying for medicine? (Household - for ages 0-17 years) Not on file 08/18/2024 Transportation Needs Answer Date Record ed READ ONLY Do you have troubl e getting a ride to medical visits or work? Never True 08/18/2024 Does your family have a hard time getting a ride to doctors visits? (Household - for ages 0-17 years) Not on file 08/18/2024 Has lack of transportation k ept you from medical appointments, meetings, work, or from getting things needed for daily living? Check all that apply. No 08/18/2024 Do you (or your family) have trouble finding or paying for a ride (transportation)? (Household - for ages 0-17 years) Not on file 08/18/2024 Housing Stability Answer Date Recorded Do you currently live in a s helter or have no steady place to sleep at night? No 08/18/2024 READ ONLY Do you think you a re at risk of becoming homeless? No 08/18/2024 Does your family worry about paying for your home or becoming homeless? (Household - for ages 0-17 years) Not on file 1 10/18/2023 Are you homeless or worried that you might be in the future? No 08/18/2024 Are you (or your family) christy eless or worried that you might be in the future? (Household - for ages 0-17 years) Not on file Food Insecurity Answer Date Recorded Do you need food for this week? No 08/18/2024 Are you able to get enough f ood for your family? (Household - for ages 0-17 years) Not on file 08/18/2024 Does your family need food t his week? (Household - for ages 0-17 years) Not on file 08/18/2024 Do you always have enough fo od for your family? (Household - for ages 0-17 years) Not on file 08/18/2024 Sex and Gender Information Value Date Recorded Sex Assigned at Male 01/30/2024 2:03 PM EDT Legal Sex Male 7:21 AM EST Gender Identity Male 01/30/2024 2:03 PM EDT Sexual Orientation Straight 01/30/2024 2: 03 PM EDT documented as of this encounter Miscellaneous Notes * Telephone Encounter - Mary Tucker LPN - 10/15/2024 3:13 PM EST Order faxed to number given. Called , left detailed message on what I did, and order faxed. * Telephone Encounter - Sin Benoit MD - 10/14/2024 7:44 PM EST signed * Telephone Encounter - Mary Tucker LPN - 10/14/2024 11:22 AM EST Called [employer] got a power wheelchair this fall. There as already been some modifications made.They wanted to see about getting his foot rests changed completely from what he has now. Foot rest is in the middle of chair, and causes his knees/thighs to flare out due to the center location of his feet resting on foot rest. It may not be possible to modify the foot rest at all to have them lookmore like a standard wheelchair foot rest. Won't work on power wheelchair. Company suggested thigh splints on either side of thigh on the seat of the chair to then keep the legs from flaring outward. Would need order for this. not sure how it should be worded. Asked that I call the company. [employer]: s/w Marvin. Lateral knee support pads is what is needed and they just need an order with that listed along with diagnosis faxed to them. * Telephone Encounter - Markus Capps OSA - 10/13/2024 4:03 PM EST Patient's spouse (Kayce Diaz) calling. Patient has a power wheelchair that is supplied through [employer] that needs to have specific modifications. Kayce is asking for a call back to advise of the modifications and where to have the script sent to. documented in this encounter Plan of Treatment Health Maintenance Due Date Last Done Comments Albumin/Creatinine Ratio 1963 Hepatitis C Screening 1963 Adult Wellness Visit 2012 Zoster Vaccines (2 of 3) 06/11/2013 04/16/2013 DTap/Tdap Vaccines (2 - Td or Tdap) 03/09/2019 03/09/2009, 10/01/1999 COVID-19 Vaccine ( season) 2024 07/12/2023, 07/06/2021, 12/09/2020, Additional history exists Influenza Vaccine (FLU shot) (#1) 2024 08/01/2021, 06/19/2019, 07/08/2018, Additional history exists GFR 01/20/2025 01/21/2024, 07/02, 04/15/2021, Additional history exists Depression Screening 08/18/2025 08/18/2024 Pneumococcal Vaccine: 50+ Years Completed 02/17/2016, 02/21/2012 HPV (Gardasil) Vaccine [...] as of this encounter Visit Diagnoses Diagnosis Wheelchair dependence- Primary documented in this encounter Care Teams Sheeter Waxer Operator Relationship Specialty Start Date End Date Sin Benoit MD [address] [place] [address] PCP - General Family Medicine 01/27/20 documented as of this encounter
--- OUTSIDE RECORDS SUMMARY | 2025-01-29 21:05 | External Medical Summary | Summary of Care ---
Author Name Unknown Organization [facility] Address [address] [place] [address] Phone [phone] Care Team Providers Care Director Of Integrated Marketing Name Role Phone Sin Benoit MD Primary Care Provider [phone] Reason for Visit * Reason Onset Date Comments Durable Medical Equipment 11/25/2024 Re: BI PAP Encounter Details Date Type Department Care Team (Late st Contact Info) Description 11/25/2024 Telephone Sleep Disorders Ctr [facility] [address] [place] [address] Services, Scheduling [address] [place] [address] Durable Medical Equipment (Re: BIPAP) Allergies No known active allergiesdocumented as of this encounter (statuses as of 12/02/2024) Medications oxygen IN GASIndications:C hronic hypoxemic respiratory [...] as of this encounter (statuses as of 12/02/2024) Active Problems Problem Noted Date Diagnosed Date 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/28/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 Oxygen dependent 02/17/2016 Restrictive lung disease 03/05/2014 Wheelchair dependence 02/27/2013 REGLA (obstructive sleep apnea) 12/24/2001 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 HTN, goal below 130/80 Paraplegia documented as of this encounter (statuses as of 12/02/2024) Resolved Problems Problem Noted Date Diagnosed Date Resolved Date Debility 04/22/2024 08/25/2024 Nocturnal hypoxemia 02/25/2021 02/13/20 23 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/2017 01/27/2020 Dyslipidemia 03/05/2014 01/27/2020 Vitamin D deficiency 03/05/2014 020 HTN, goal below 140/90 02/27/200101/26 DIVERTICULITIS OF COLON 10/10/200012/31 POLIO OSTEOPATHY-MULT 2019 documented as of this encounter (statuses as of 12/02/2024) Immunizations Name Administration Dates Next Due COVID-19 mRNA, LNP-s, No Pre serve, 2-Dose Series ([id number]) 12/09/2020,11/18/2020 H1N1 2009 Influenza, IM 02/02/2010 Pneumococcal [...] ages 0-17 years) Not on file 08/18/2024 Food Insecurity Answer Date Recorded Within the past 12 months, y ou worried that your food would run out before you got the money to buy more. Never true 08/18/20 24 Within the past 12 months, t he food you bought just didn't last and you didn't have money to get more. Never true 08/18/2024 Do you need food for this week? No 08/18/2024 Sex and Gender Information Value Date Recorded Sex Assigned at Male 01/30/2024 2:03 PM EDT Legal Sex Male 7:21 AM EST Gender Identity Male 01/30/2024 2:03 PM EDT Sexual Orientation Straight 01/30/2024 2: 03 PM EDT documented as of this encounter Miscellaneous Notes * Addendum Note - Leny Woodruff CRNP - 12/02/2024 8:56 AM ESTAddended by: LENY WOODRUFF on: 12/02/2024 08:56 AM Modules accepted: Orders * Telephone Encounter - Kristen Rivera LPN - 11/28/2024 7:52 AM EST MyG sent. * Telephone Encounter - Leny Woodruff CRNP - 11/27/2024 5:04 PM EST I looked through the detailed data with the pressure tracings and things look normal to me. I compared the data we had at the last visit with what is currently reported and everything looks similar as to how well it's treating his apnea and providing ventilatory support. If he hasn't already, he could replace the filters, tubing, humidifier tank to make sure everythingis flowing and sealing well. I don't think [employer] or [employer] would service this machine since it is an old model and considered obsolete. If he wants an order for a new machine, I can provide that. * Telephone Encounter - Kristen Rivera LPN - 11/26/2024 1:28 PM EST I spoke with the pt and his , who report Ortega doesn't feel as if he is getting enough pressure. They spoke with [employer], but didn't feel as if they got any answers. DL added to providers review basket. * Telephone Encounter - Kristen Rivera LPN - 11/26/2024 8:13 AM EST Emailed [facility] requesting current DL. * Telephone Encounter - Diane Javed OSA - 11/25/2024 3:52 PM EST Pt called and said he was having some problems with his bi-pap. He said the pressure is not workingcorrectly. Can someone please call him. Thank you [facility] documented in this encounter Plan of Treatment Health Maintenance Due Date Last Done Comments Albumin/Creatinine Ratio 1963 Hepatitis C Screening 1963 Adult Wellness Visit 2012 Zoster Vaccines (2 of 3) 06/11/2013 04/16/2013 DTap/Tdap Vaccines (2 - Td or Tdap) 03/09/2019 03/09/2009, 10/01/1999 COVID-19 Vaccine (5 - season) 2024 07/12/2023, 07/06/2021, 12/09/2020, Additional history [...] on patient's age to complete this topic Meningitis B Vaccine (Bexsero/Trumemba) Aged Out No longer eligible based on patient's age to complete this topic documented as of this encounter Medical Devices Not on filedocumented as of this encounter Visit Diagnoses Diagnosis REGLA treated with BiPAP- Primary Complex sleep apnea syndrome Unspecified sleep apnea documented in this encounter Care Teams Director Of Integrated Marketing Relationship Specialty Start Date End Date Sin Benoit MD [address] [place] [address] PCP - General Family Medicine 01/27/20 documented as of this encounter
--- OUTSIDE RECORDS SUMMARY | 2025-01-29 21:05 | External Medical Summary | Summary of Care ---
Author Name Unknown Organization [facility] Address [address] [place] [address] Phone [phone] Care Team Providers Care Triple Air Valve Tester Name Role Phone Sin Benoit MD Primary Care Provider +1 [phone] Reason for Visit * Reason Onset Date Comments Durable Medical Equipment 11/25/2024 Re: BI PAP Encounter Details Date Type Department Care Team (Late st Contact Info) Description 11/25/2024 Telephone Sleep Disorders Ctr [facility] [address] [place] [address] Services, Scheduling [address] [place] [address] Durable Medical Equipment (Re: BIPAP) Allergies No known active allergiesdocumented as of this encounter (statuses as of 11/26/2024) Medications oxygen IN GASIndications:C hronic hypoxemic respiratory [...] as of this encounter (statuses as of 11/26/2024) Active Problems Problem Noted Date Diagnosed Date 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/28/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 Oxygen dependent 02/17/2016 Restrictive lung disease 03/05/2014 Wheelchair dependence 02/27/2013 REGLA (obstructive sleep apnea) 12/24/2001 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 HTN, goal below 130/80 Paraplegia documented as of this encounter (statuses as of 11/26/2024) Resolved Problems Problem Noted Date Diagnosed Date Resolved Date Debility 04/22/2024 08/25/2024 Nocturnal hypoxemia 02/25/2021 02/13/20 23 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/2017 01/27/2020 Dyslipidemia 03/05/2014 01/27/2020 Vitamin D deficiency 03/05/2014 020 HTN, goal below 140/90 02/27/200101/26 DIVERTICULITIS OF COLON 10/10/200012/31 POLIO OSTEOPATHY-MULT 2019 documented as of this encounter (statuses as of 11/26/2024) Immunizations Name Administration Dates Next Due COVID-19 mRNA, LNP-s, No Pre serve, 2-Dose Series ([employer]) 12/09/2020,11/18/2020 H1N1 2009 Influenza, IM 02/02/2010 Pneumococcal [...] LPN - 11/26/2024 8:13 AM EST Emailed [employer] requesting current DL. * Telephone Encounter - Diane Javed OSA - 11/25/2024 3:52 PM EST Pt called and said he was having some problems with his bi-pap. He said the pressure is not workingcorrectly. Can someone please call him. Thank you [employer] documented in this encounter Plan [...] filedocumented as of this encounter Care Teams Triple Air Valve Tester Relationship Specialty Start Date End Date Sin Benoit MD [address] [place] [address] PCP - General Family Medicine 01/27/20 documented as of this encounter
--- OUTSIDE RECORDS SUMMARY | 2025-01-29 21:05 | External Medical Summary | Summary of Care ---
Author Name Unknown Organization [facility] Address [address] [place] [address] Phone [phone] Care Team Providers Care Parimutuel Ticket Checker Name Role Phone Sin Benoit MD Primary Care Provider +1 [phone] Reason for Visit * Reason Onset Date Comments Durable Medical Equipment 11/25/2024 Re: BI PAP Encounter Details Date Type Department Care Team (Late st Contact Info) Description 11/25/2024 Telephone Sleep Disorders Ctr [facility] [address] [place] [address] Services, Scheduling [address] [place] [address] Durable Medical Equipment (Re: BIPAP) Allergies No [...] mRNA, LNP-s, No Pre serve, 2-Dose Series ([email or web address]) 12/09/2020,11/18/2020 H1N1 2009 Influenza, IM 02/02/2010 Pneumococcal [...] current DL. * Telephone Encounter - Diane Javed, REGLA - 11/25/2024 3:52 PM EST Pt called [...] filedocumented as of this encounter Care Teams Parimutuel Ticket Checker Relationship Specialty Start Date End Date Sin Benoit MD [address] [place] [address] PCP - General Family Medicine 01/27/20 documented as of this encounter
--- OUTSIDE RECORDS SUMMARY | 2025-01-29 21:05 | External Medical Summary | Summary of Care ---
Author Name Unknown Organization [facility] Address [address] [place] [address] Phone [phone] Care Team Providers Care Renewable Energy Technician Name Role Phone Red De La Torre MD Primary Care Provider +1 [phone] Reason for Visit * Reason Comments eRx-Medication Refill Encounter Details Date Type Department Care Team (Late st Contact Info) Description 01/07/2025 Refill Family Practice [facility] [address] [place] [address] Red De La Torre [facility] [place] [address] HTN, goal below 140/90 Allergies No known active allergiesdocumented as of this encounter (statuses as of 01/10/2025) Medications oxygen IN GASIndications: Chronic hypoxemic respiratory failure (HCC),Post-johnson o syndrome,Restri ctive lung disease,Nocturn al hypoxemia 2.LPM with exertion and 2.5 LPM bled through BIPAP with sleep. Needs portable tanks and stationary concentrator. 1 Each 02/26/20 21 Active Triamcinolone Acetonide 0.1 % External Cream (Aristocort)Ind ications:Rash and nonspecific skin eruption Apply topically to affected area 2 times a day. To affected area. 80 g 5 09/01/20 21 Active BiPAP every night at bedtime. 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 Oxygen dependent 02/17/2016 Restrictive lung disease 03/05/2014 Wheelchair dependence 02/27/2013 REGLA (obstructive sleep apnea) 12/24/2001 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 HTN, goal below 130/80 Paraplegia documented as of this encounter (statuses as of 01/10/2025) Resolved Problems Problem Noted Date Diagnosed Date Resolved Date Debility 04/22/2024 08/25/2024 Nocturnal hypoxemia 02/25/2021 02/13/20 23 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/2017 01/27/2020 Dyslipidemia 03/05/2014 01/27/2020 Vitamin D deficiency 03/05/2014 020 HTN, goal below 140/90 02/27/200101/26 DIVERTICULITIS OF COLON 10/10/200012/31 POLIO OSTEOPATHY-MULT 2019 documented as of this encounter (statuses as of 01/10/2025) Immunizations Name Administration Dates Next Due COVID-19 mRNA, LNP-s, No Pre serve, 2-Dose Series ([employer]) 12/09/2020,11/18/2020 H1N1 2009 Influenza, IM 02/02/2010 Pneumococcal Conjugate Vacc, 13 Valent (Prevnar) 02/17/2016 Pneumococcal Polysaccharide PPV23 (Pneumovax) Seasonal Influenza, High Dos e, Trivalent, PF, IM (Fluzone HD) 06/19/2019 Seasonal Influenza, PF, 6 M & above, IM , (FluLaval or Fluzone) 07/08/2018 Seasonal Influenza, Quadrivalent, No Preserve, I M 06/19/2017 TDAP, Age 7 and older, IM (Adacel) 03/09/2009 Varicella Zoster Vaccine Adult (Zostavax) 2012 documented as of this encounter Social History [...] encounter Miscellaneous Notes * Telephone Encounter - Chirag Calles - 01/10/2025 6:18 AM EDT Received message from [facility] regarding patient needing labs. Patient was notified. Successfully contacted patient and provided [facility] message. * Telephone Encounter - Larissa Hunter RP - 01/07/2025 12:10 PM EDTSigned Prescriptions: Disp Refills Lisinopril 20 MG Oral Tablet (Prinivil) 90 Tab*0 Sig: TAKE 1 TABLET BY MOUTH EVERY DAY Authorizing Provider: RED DE LA TORRE Ordering User: LARISSA HUNTER * Telephone Encounter - Larissa Hunter RPh - 01/07/2025 12:09 PM EDT Provided 90 days supply with 0 refill(s). Per refill protocol patient should have routine on file within past year. Reviewed : AMP report Care Gaps/Health Maintenance medications list for any routinelabs typically ordered for this patient. Lab orders placed. Please contact patient to advise of labs ordered for blood draw AND URINE specimen (patient will have to be able to void to provide sample). Fasting is not required. Advise to obtain labs before requesting the next refill. Thanks, Larissa Hunter Clinical Pharmacist [facility] [phone] 01/07/2025, 12:10 PM documented in this encounter Plan of Treatment Scheduled Orders Name Type Priority Associated Diagnoses Orde r Schedule ALBUMIN / CREATININE RATIO, URINE Lab Routine HTN, goal below 140/90 Expected: 01/14/2025, Expires: 01/07/2026 BASIC METABOLIC PANEL Lab Routine HTN, goal below 140/90 Expected: 01/14/2025 (Approximate), Expires: 01/07/2026 Health Maintenance Due Date Last Done Comments Albumin/Creatinine Ratio 1963 Hepatitis C Screening 1963 Adult Wellness Visit 2012 Zoster Vaccines (2 of 3) 06/11/2013 04/16/2013 DTap/Tdap Vaccines (2 - Td or Tdap) 03/09/2019 03/09/2009, 10/01/1999 COVID-19 Vaccine ( season) 2024 07/12/2023, 07/06/2021, 12/09/2020, Additional history exists GFR 01/20/2025 01/21/2024, 07/02, 04/15/2021, Additional history exists Influenza Vaccine (FLU shot) (Season Ended) 2025 08/01/2021, 06/19/2019, 07/08/2018, Additional history exists Depression Screening 08/18/2025 08/18/2024 [...] as of this encounter Visit Diagnoses Diagnosis HTN, goal below 140/90 Unspecified essential hypertension documented in this encounter Care Teams Renewable Energy Technician Relationship Specialty Start Date End Date Red De La Torre MD [address] [place] [address] PCP - General Family Medicine 01/27/20 documented as of this encounter
--- OUTSIDE RECORDS SUMMARY | 2025-01-29 21:05 | External Medical Summary | Summary of Care ---
Author Name Unknown Organization [facility] Address [address] [place] [address] Phone [phone] Care Team Providers Care Dredge Pipe Operator Name Role Phone Sin Benoit MD Primary Care Provider [phone] [phone] Reason for Visit * Reason Onset Date Comments Advice 09/09/2024 Encounter Details Date Type Department Care Team (Late st Contact Info) Description 09/09/2024 Telephone Care Coordination and Integration [address] [place], [place] [id number] Mary Decker, Community Health Corporate Secretary [address] [place] [address] Advice Allergies No known active allergiesdocumented as of this encounter (statuses as of 12/10/2024) Medications oxygen IN GASIndications:C hronic hypoxemic respiratory [...] as of this encounter (statuses as of 12/10/2024) Active Problems Problem Noted Date Diagnosed Date 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/28/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 Oxygen dependent 02/17/2016 Restrictive lung disease 03/05/2014 Wheelchair dependence 02/27/2013 REGLA (obstructive sleep apnea) 12/24/2001 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 HTN, goal below 130/80 Paraplegia documented as of this encounter (statuses as of 12/10/2024) Resolved Problems Problem Noted Date Diagnosed Date Resolved Date Debility 04/22/2024 08/25/2024 Nocturnal hypoxemia 02/25/2021 02/13/20 23 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/2017 01/27/2020 Dyslipidemia 03/05/2014 01/27/2020 Vitamin D deficiency 03/05/2014 020 HTN, goal below 140/90 02/27/200101/26 DIVERTICULITIS OF COLON 10/10/200012/31 POLIO OSTEOPATHY-MULT 2019 documented as of this encounter (statuses as of 12/10/2024) Immunizations Name Administration Dates Next Due COVID-19 mRNA, LNP-s, No Pre serve, 2-Dose Series ([employer]) 12/09/2020,11/18/2020 H1N1 2009 Influenza, IM 02/02/2010 Pneumococcal [...] encounter Miscellaneous Notes * Telephone Encounter - Zo Kirby OSA - 09/09/2024 11:46 AM EST Patient would like a call back at [phone] He has so question , Thank you documented in this encounter Plan of Treatment Health Maintenance Due Date Last Done Comments Albumin/Creatinine Ratio 1963 Hepatitis C Screening 1963 Adult Wellness Visit 2012 Zoster Vaccines (2 of 3) 06/11/2013 04/16/2013 DTap/Tdap Vaccines (2 - Td or Tdap) 03/09/2019 03/09/2009, 10/01/1999 COVID-19 Vaccine ( - season) 2024 07/12/2023, 07/06/2021, 12/09/2020, Additional [...] filedocumented as of this encounter Care Teams Dredge Pipe Operator Relationship Specialty Start Date End Date Sin Benoit MD [address] [facility] [place] [address] PCP - General Family Medicine 01/27/20 documented as of this encounter
--- OUTSIDE RECORDS SUMMARY | 2025-01-29 21:05 | External Medical Summary | Summary of Care ---
Author Name Unknown Organization [facility] Address [address] [place] [address] Phone [phone] Care Team Providers Care Reporting Consultant Name Role Phone Sin Benoit MD Primary Care Provider [phone] [phone] Reason for Visit * Reason Onset Date Comments Durable Medical Equipment 11/25/2024 Re: BI PAP Encounter Details Date Type Department Care Team (Late st Contact Info) Description 11/25/2024 Telephone Sleep Disorders Ctr [facility] [address] [place] [address] Services, Scheduling [address] [place] [address] Durable Medical Equipment (Re: BIPAP) Allergies No known active allergiesdocumented as of this encounter (statuses as of 11/28/2024) Medications oxygen IN GASIndications:C hronic hypoxemic respiratory [...] as of this encounter (statuses as of 11/28/2024) Active Problems Problem Noted Date Diagnosed Date 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/28/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 Oxygen dependent 02/17/2016 Restrictive lung disease 03/05/2014 Wheelchair dependence 02/27/2013 REGLA (obstructive sleep apnea) 12/24/2001 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 HTN, goal below 130/80 Paraplegia documented as of this encounter (statuses as of 11/28/2024) Resolved Problems Problem Noted Date Diagnosed Date Resolved Date Debility 04/22/2024 08/25/2024 Nocturnal hypoxemia 02/25/2021 02/13/20 23 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/2017 01/27/2020 Dyslipidemia 03/05/2014 01/27/2020 Vitamin D deficiency 03/05/2014 020 HTN, goal below 140/90 02/27/200101/26 DIVERTICULITIS OF COLON 10/10/200012/31 POLIO OSTEOPATHY-MULT 2019 documented as of this encounter (statuses as of 11/28/2024) Immunizations Name Administration Dates Next Due COVID-19 mRNA, LNP-s, No Pre serve, 2-Dose Series ([employer]) 12/09/2020,11/18/2020 H1N1 2009 Influenza, IM 02/02/2010 Pneumococcal [...] encounter Miscellaneous Notes * Telephone Encounter - Sera Degroot CRNP - 11/27/2024 5:04 PM EST I [...] filedocumented as of this encounter Care Teams Reporting Consultant Relationship Specialty Start Date End Date Sin Benoit MD [address] [place] [address] PCP - General Family Medicine 01/27/20 documented as of this encounter
--- OUTSIDE RECORDS SUMMARY | 2025-01-29 21:05 | External Medical Summary | Summary of Care ---
Author Name Unknown Organization [facility] Address [address] [place] [address] Phone [phone] Care Team Providers Care Triple Drum Operator Name Role Phone Sin Benoit MD Primary Care Provider +1 [phone] Reason for Visit * Reason Onset Date Comments Durable Medical Equipment 11/25/2024 Re: BI PAP Encounter Details Date Type Department Care Team (Late st Contact Info) Description 11/25/2024 Telephone Sleep Disorders Ctr [facility] [address] [place] [address] Services, Scheduling [address] [place] [address] Durable Medical Equipment (Re: BIPAP) Allergies No [...] mRNA, LNP-s, No Pre serve, 2-Dose Series ([employer]) 12/09/2020,11/18/2020 H1N1 2009 Influenza, IM 02/02/2010 Pneumococcal [...] EST MyG sent. * Telephone Encounter - Sera Degroot CRNP [...] flowing and sealing well. I don't think [email or web address] or [employer] would service this machine since [...] as of this encounter Care Teams Triple Drum Operator Relationship Specialty Start Date End Date Sin Benoit MD [address] [facility] [place] [address] PCP - General Family Medicine 01/27/20 documented as of this encounter
--- OUTSIDE RECORDS SUMMARY | 2025-01-29 21:05 | External Medical Summary | Summary of Care ---
Author Name Unknown Organization [facility] Address [address] [place] [address] Phone [phone] Care Team Providers Care Ui Application Developer Name Role Phone Sin Benoit MD Primary Care Provider +1 [phone] Reason for Visit * Reason Onset Date Comments Triage Advice 01/28/2025 Patient needs to know if he should go to ER with low oxygen level. Transferred to pulm who patient is being treated with. Encounter Details Date Type Department Care Team (Late st Contact Info) Description 01/28/2025 Telephone [facility] [address] [facility] [address] Sin [facility] [address] [facility] [facility] [address] Triage Advice (Patient needs to know if he... 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 Oxygen dependent 02/17/2016 Restrictive lung disease 03/05/2014 Wheelchair dependence 02/27/2013 REGLA (obstructive sleep apnea) 12/24/2001 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 HTN, goal below 130/80 Paraplegia documented as of this encounter (statuses as of 01/28/2025) Resolved Problems Problem Noted Date Diagnosed Date Resolved Date Debility 04/22/2024 08/25/2024 Nocturnal hypoxemia 02/25/2021 02/13/20 23 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/2017 01/27/2020 Dyslipidemia 03/05/2014 01/27/2020 Vitamin D deficiency 03/05/2014 020 HTN, goal below 140/90 02/27/200101/26 DIVERTICULITIS OF COLON 10/10/200012/31 POLIO OSTEOPATHY-MULT 2019 documented as of this encounter (statuses as of 01/28/2025) Immunizations Name Administration Dates Next Due COVID-19 mRNA, LNP-s, No Pre serve, 2-Dose Series ([employer]) 12/09/2020,11/18/2020 H1N1 2009 Influenza, IM 02/02/2010 Pneumococcal [...] encounter Miscellaneous Notes * Telephone Encounter - Elaine Day OSA - 01/28/2025 8:40 AM EDT Patient needs to know if he should go to ER with low oxygen level. Transferred to pulm who patient is being treated with. documented in this encounter Plan of Treatment [...] filedocumented as of this encounter Care Teams Ui Application Developer Relationship Specialty Start Date End Date Sin Benoit MD [address] [place] [address] PCP - General Family Medicine 01/27/20 documented as of this encounter
--- OUTSIDE RECORDS SUMMARY | 2025-01-29 21:05 | External Medical Summary | Summary of Care ---
Author Name Unknown Organization [facility] Address [address] [place] [address] Phone [phone] Care Team Providers Care Automatic Silk Screen Printer Name Role Phone Sin Benoit MD Primary Care Provider +1 [phone] Encounter Details Date Type Department Care Team (Late st Contact Info) Description 01/10/2025 Orders Only PATIENT PORTAL DO NOT DELETE THIS DEPT USED BY [place] [id number] Allergies No known active allergiesdocumented as of this encounter (statuses as of 01/10/2025) Medications oxygen IN GASIndications:C hronic hypoxemic respiratory [...] Debility 04/22/2024 08/25/2024 Nocturnal hypoxemia 02/25/2021 02/13/20 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/2017 01/27/2020 Dyslipidemia 03/05/2014 01/27/2020 Vitamin D deficiency 03/05/2014 020 HTN, goal below 140/90 02/27/200101/26 DIVERTICULITIS OF COLON 10/10/200012/31 POLIO OSTEOPATHY-MULT 2019 documented as of this encounter (statuses as of 01/10/2025) Immunizations Name Administration Dates Next Due COVID-19 mRNA, LNP-s, No Pre serve, 2-Dose Series ([employer]) 12/09/2020,11/18/2020 H1N1 2009 Influenza, IM 02/02/2010 Pneumococcal [...] PM EDT documented as of this encounter Plan of Treatment Health Maintenance [...] filedocumented as of this encounter Care Teams Automatic Silk Screen Printer Relationship Specialty Start Date End Date Sin Benoit MD [address] [place] [address] PCP - General Family Medicine 01/27/20 documented as of this encounter
--- OUTSIDE RECORDS SUMMARY | 2025-01-29 21:05 | External Medical Summary | Summary of Care ---
Author Name Unknown Organization [facility] Address [address] [place] [address] Phone [phone] Care Team Providers Care Quality Assurance Calibrator Name Role Phone Sin Benoit MD Primary Care Provider [phone] [phone] Encounter Details Date Type Department Care Team (Late st Contact Info) Description 10/20/2024 Population Health External Data Unspecified Department Allergies No known active allergiesdocumented as of this encounter (statuses as of 10/20/2024) Medications oxygen IN GASIndications:C hronic hypoxemic respiratory [...] as of this encounter (statuses as of 10/20/2024) Active Problems Problem Noted Date Diagnosed Date 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/28/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 Oxygen dependent 02/17/2016 Restrictive lung disease 03/05/2014 Wheelchair dependence 02/27/2013 REGLA (obstructive sleep apnea) 12/24/2001 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 HTN, goal below 130/80 Paraplegia documented as of this encounter (statuses as of 10/20/2024) Resolved Problems Problem Noted Date Diagnosed Date Resolved Date Debility 04/22/2024 08/25/2024 Nocturnal hypoxemia 02/25/2021 02/13/20 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/2017 01/27/2020 Dyslipidemia 03/05/2014 01/27/2020 Vitamin D deficiency 03/05/2014 020 HTN, goal below 140/90 02/27/200101/26 DIVERTICULITIS OF COLON 10/10/200012/31 POLIO OSTEOPATHY-MULT 2019 documented as of this encounter (statuses as of 10/20/2024) Immunizations Name Administration Dates Next Due COVID-19 [...] filedocumented as of this encounter Care Teams Quality Assurance Calibrator Relationship Specialty Start Date End Date Sin Benoit MD [address] [place] [address] PCP - General Family Medicine 01/27/20 documented as of this encounter
--- OUTSIDE RECORDS SUMMARY | 2025-01-29 21:05 | External Medical Summary | Summary of Care ---
Author Name Unknown Organization [facility] Address [address] [place] [address] Phone [phone] Care Team Providers Care Steam Hoist Operator Name Role Phone Sin Benoit MD Primary Care Provider +1 [phone] Reason for Visit * Reason Onset Date Comments Durable Medical Equipment 11/25/2024 Encounter Details Date Type Department Care Team (Late st Contact Info) Description 11/25/2024 Telephone Sleep Disorders Ctr [facility] [address] [place] [address] Services, Scheduling [address] [place] [address] Durable Medical Equipment Allergies No known active [...] encounter Miscellaneous Notes * Telephone Encounter - Diane Javed OSA - 11/25/2024 3:52 PM EST Pt called and said he was having some problems with his bi-pap. He said the pressure is not workingcorrectly. Can someone please call him. Thank you [employer] documented in this encounter Plan [...] filedocumented as of this encounter Care Teams Steam Hoist Operator Relationship Specialty Start Date End Date Sin Benoit MD [address] [place] [address] PCP - General Family Medicine 01/27/20 documented as of this encounter
[2025-01-29] MEDS: DOXYCYCLINE HYCLATE 100 MG CAP PO SCH (21:35)
[2025-01-29] MEDS: ENOXAPARIN INJ 40 MG/0.4 ML SYR SQ SCH (21:35)
[2025-01-30 06:08] LABS: Base Excess VBG 9.2 mEq/L; HCO3 VBG 35 mmol/L; Oxygen Saturation VBG 81.4 %; PCO2 VBG 50 mmHg (38-50); PO2 VBG 43 mmHg; pH VBG 7.45 (7.36-7.41)
[2025-01-30 06:13] LABS: Hematocrit (blood only) 30.1 % (42.0-52.0); Hemoglobin 9.5 g/dl (14.0-18.0); Mean Corpuscular Hemoglobin 28.7 pg (25.0-34.0); Mean Corpuscular Hgb Conc 31.6 g/dL (32.0-36.0); Mean Corpuscular Volume 90.9 fL (80.0-100.0); Platelet Count 137 K/uL (130-400); RDW Coefficient of Variation 14.4 % (11.5-14.5); RDW Standard Deviation 48.9 fL (36.4-46.3); Red Blood Count 3.31 M/uL (4.70-6.10); White Blood Count 5.64 K/ul (4.8-10.8)
[2025-01-30 06:33] LABS: BUN Creatinine Ratio 81.3 (10-20); Calcium 8.8 mg/dl (8.6-10.3); Creatinine Clr Calc Pharmacy 180.7 ml/min
[2025-01-30 07:54] VITALS: BP 150/79; PULSE 61; RESP 18; TEMP 97.3; O2SAT 91
[2025-01-30] MEDS: OXYBUTYNIN CHLORIDE XL 5 MG TABCR PO SCH (08:54)
[2025-01-30] MEDS: CHOLECALCIFEROL 25 MCG (1000 UNITS) TAB PO SCH (08:54)
--- NOTE | 2025-01-30 10:57 | Discharge Summary ---
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 Acute on chronic respiratory failure with hypercapnia secondary to viral URI Biofire positive for rhino/enterovirus CXR revealed no pneumothorax or pleural effusion; unchanged enlargement of cardiac silhouette; bibasilar opacities likely atelectasis Initial VBG pH 7.27 and pCO2 82 with repeat pH 7.34 and pCO2 68. On the day of discharge VBG with noted significant improvement to pH 7.45, pCO2 50 and HCO3 of 35 Doxycycline was added for empiric coverage but pt refused. PRN albuterol and cough syrup Encouraged incentive spirometry use On the day of discharge, pt and were very anxious to be discharged. Pt was discharged with advice to continue with home oxygen supplementation and bipap use through the day during this acute illness as well as at bedtime home bipap use. 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 Patient and his provided history. Report they had a friend at their house who had a cold and was coughing. Two days ago, patient developed a productive cough with clear phlegm and SOB that has been worsening which prompted them to be seen in the ED. His notes that he can only travel by ambulance due to patient having paraplegia which is why they came to the ED instead of going to an [facility] clinic. Denies fevers, chills, runny nose, sore throat, chest pain, abdominal pain, N/V. Admission Exam Per Admitting Provider General/Psych: WD/WN, laying in bed, NAD, conversing easily, euthymic affect Head: normocephalic, atraumatic Eyes: normal inspection, PERRL, conjunctivae pink, anicteric sclerae ENT: external ear and nose normal, oropharynx normal Neck: normal visual inspection, trachea midline, no thyromegaly Respiratory: normal respiratory effort, lungs clear to auscultation, no wheeze /rales/rhonchi, no accessory muscle use, on nasal bipap, pectus carinatum Cardiovascular: regular rate and rhythm, no murmur/rub/gallop, no JVD Extremities: no cyanosis or clubbing, normal peripheral pulses, no BLE edema Abdomen/GI: normal bowel sounds, soft, nontender, no hepatosplenomegaly Neurologic/MSK: A+Ox3, paraplegia Skin: no rashes, normal color, warm and dry Discharge Exam General: Alert, oriented. No acute distress HEENT: NC/AT,NC in nares CV: RRR Resp: Breath sounds decreased bilaterally, NC in nares Abdomen: Soft, ostomy bag in place Extremities: L>R edema in lower extremities Updated Medication List Medication Instructions Recorded Confirmed Type atenolol 25 mg tablet 25 mg PO QAM 07/05/19 01/29/25 History lisinopril 20 mg tablet 20 mg PO QAM 07/05/19 01/29/25 History cholecalciferol (vitamin D3) 25 25 mcg PO QAM 08/13/24 01/29/25 History mcg (1,000 unit) tablet (Vitamin D3) butenafine 1 % topical cream 1 applic topical DAILY PRN fungal 10/15/24 01/29/25 History (Lotrimin Ultra) infection ibuprofen 200 mg tablet 200 mg PO Q6H PRN Pain 10/15/24 01/29/25 History oxybutynin chloride 5 mg 5 mg PO DAILY #5 tabs 10/15/24 01/29/25 Rx tablet,extended release 24 hr Hospital Stay Data Consultations 01/29/25 17:58 ED Decision to Admit Stat Discharge Instructions Given to Patient (Per Discharging Provider) Mr. Coronel, You were admitted overnight for further monitoring. Your symptoms and labwork have improved. Please continue with your bipap and oxygen use at home. Please keep close follow up with your primary care provider after discharge. Please do not hesitate to come back to the emergency room if your symptoms worsen or return. It was a pleasure taking care of you while you were here. Total Time Total Time Spent Total Time Spent (In Minutes): 45
--- OUTSIDE RECORDS SUMMARY | 2025-01-30 14:34 | External Medical Summary | Summary of Care ---
Author Name Unknown Organization [facility] Address [address] [place] [address] Phone [phone] Care Team Providers Care [employer] Name Role Phone Sin Benoit MD Primary Care Provider [phone] Reason for Visit * Reason Onset Date Comments FYI 01/28/2025 Pt going to ER Encounter Details Date Type Department Care Team (Late st Contact Info) Description 01/28/2025 Telephone [facility] [address] [place] [address] Sera Degroot CRNP [address] [place] [address] FYI (Pt going to ER) Allergies No known active allergiesdocumented as of this encounter (statuses as of 01/29/2025) Medications oxygen IN GASIndications:C hronic hypoxemic respiratory [...] as of this encounter (statuses as of 01/29/2025) Active Problems Problem Noted Date Diagnosed Date 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/28/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 Oxygen dependent 02/17/2016 Restrictive lung disease 03/05/2014 Wheelchair dependence 02/27/2013 REGLA (obstructive sleep apnea) 12/24/2001 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 HTN, goal below 130/80 Paraplegia documented as of this encounter (statuses as of 01/29/2025) Resolved Problems Problem Noted Date Diagnosed Date Resolved Date Debility 04/22/2024 08/25/2024 Nocturnal hypoxemia 02/25/2021 02/13/20 23 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/2017 01/27/2020 Dyslipidemia 03/05/2014 01/27/2020 Vitamin D deficiency 03/05/2014 020 HTN, goal below 140/90 02/27/200101/26 DIVERTICULITIS OF COLON 10/10/200012/31 POLIO OSTEOPATHY-MULT 2019 documented as of this encounter (statuses as of 01/29/2025) Immunizations Name Administration Dates Next Due COVID-19 mRNA, LNP-s, No Pre serve, 2-Dose Series (Help Remedies) 12/09/2020,11/18/2020 H1N1 2009 Influenza, IM 02/02/2010 Pneumococcal [...] Telephone Encounter - Sera Degroot CRNP - 01/29/2025 4:04 PM EDT Noted. * Telephone Encounter - Kristen Rivera LPN - 01/28/2025 8:50 AM EDT Pt and his called to inform Sera they're going to the ER. Ortega was exposed to a friend witha "bad cold" and now he is coughing a lot. He is using his oxygen as prescribed, but his sats this morning are in the low to mid 80s, and even dipped to 77% at one point. documented in this encounter Plan of Treatment [...] filedocumented as of this encounter Care Teams [employer] Relationship Specialty Start Date End Date Sin Benoit MD [address] [place] [address] PCP - General Family Medicine 01/27/20 documented as of this encounter
[2025-01-30] MEDS ORDERED: ATENOLOL 25 MG TABLET PO SCH (21:00)
[2025-01-30] MEDS ORDERED: lisinopril 20 MG TAB PO SCH (21:00)
--- NOTE | 2025-02-01 08:36 | Electrocardiogram Report ---
Test Reason : Blood Pressure : */* mmHG Vent. Rate : 62 BPM Atrial Rate : 62 BPM P-R Int : 166 ms QRS Dur : 90 ms QT Int : 388 ms P-R-T Axes : 48 52 58 degrees QTcB Int : 393 ms Normal sinus rhythm Normal ECG When compared with ECG of 13-Aug-2024 10:32, No significant change was found Baseline Artifact Confirmed by Natalia Anaya (Zenaida) on 02/01/2025 8:35:39 AM Referred By: REFERRED SELF Confirmed By: Natalia Anaya
== END 2025-01-30 12:01 | disposition home or self-care (01) ==
LOC: ED 14:28 → 2N 14:28 → SUATTDRO 19:16 → 2N 20:33